=== PATIENT | male | born 1945 | race Caucasian/White ===

== ENCOUNTER 2021-07-26 09:43 | Outpatient (CLI) | payer MEDICARE, OTHER, SELFPAY ==
[2021-07-26 09:57] VITALS: BP 145/95; PULSE 60; RESP 18; TEMP 36.4; O2SAT 99; BMI 27.5
[2021-07-26 10:30] VITALS: BP 123/75; PULSE 57; RESP 16; TEMP 36.4; O2SAT 98
[2021-07-26 11:27] VITALS: BP 124/81; PULSE 55; RESP 18; TEMP 36.4; O2SAT 99
== END 2021-07-26 09:44 | disposition home or self-care (01) ==
LOC: OPS 09:46
PROVIDERS: Visit Provider Family Medicine
DX: U07.1 COVID-19 (principal)
CPT/HCPCS: 96365

== ENCOUNTER 2021-08-29 21:50 | Observation (INO) | payer MEDICARE, OTHER, SELFPAY ==
--- NOTE | 2021-08-29 22:35 | XRR_ITS ---
PROCEDURE INFORMATION: Exam: XR Right Humerus Exam date and time: 08/29/2021 10:35 PM Age: 76 years old Clinical indication: Injury or trauma; Fall; Blunt trauma (contusions or hematomas); Arm, upper; Right; Patient HX: Patient fell tonight. C/O mid humeral pain. Immobilized in soft sling. No manipulation of arm performed. Body rotation and tube angulation used to attempt ap and lat views. ; Additional info: Fall arm pain TECHNIQUE: Imaging protocol: XR Right humerus. Views: 2 or more views. Total images: 4 COMPARISON: No relevant prior studies available. FINDINGS: Bones/joints: Moderately displaced simple comminuted spiral fracture proximal diaphysis right humerus. Medial displacement approximately 18 mm proximally. No visible significant contracture. Probable pathologic fracture through a mid diaphyseal focus of osteolytic destruction that measures approximately 39 mm x 20 mm x 21 mm. Soft tissues: Soft tissue swelling. No visible soft tissue emphysema. XR/[place] [id number] IMPRESSION: Moderately displaced simple comminuted pathologic spiral fracture proximal diaphysis right humerus. Please review discussion in text above.
--- NOTE | 2021-08-29 22:35 | CTR_ITS ---
PROCEDURE INFORMATION: Exam: CT Head Without Contrast Exam date and time: 08/29/2021 10:35 PM Age: 76 years old Clinical indication: Injury or trauma; Blunt trauma (contusions or hematomas); Patient HX: Patient sustained fall last night. On anticoagulants. ; Additional info: Fall, anticoagulated TECHNIQUE: Imaging protocol: Computed tomography of the head without contrast. Total images: 208 Radiation optimization: All CT scans at this facility use at least one of these dose optimization techniques: automated exposure control; mA and/or kV adjustment per patient size (includes targeted exams where dose is matched to clinical indication); or iterative reconstruction. COMPARISON: CT head wo con* [id number] 02/03/2019 8:13 PM RADIATION DOSE METRICS: Total DLP (mGy-cm): 796.9 FINDINGS: Brain: No evidence of active or acute intracranial pathologic process, hemorrhage, or trauma. No cerebral edema. No mass effect. No midline shift. 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 No hyperdense MCA or insular ribbon sign. Atrophic changes greater than that anticipated for patient's chronological age. Cerebral ventricles: No ventriculomegaly. Paranasal sinuses: No visible active paranasal sinus disease. Mastoid air cells: Visualized mastoid air cells are well aerated. Bones/joints: Unremarkable. No acute fracture. Soft tissues: Unremarkable. CT/CT head wo con* [id number] IMPRESSION: No evidence of active or acute intracranial pathologic process, hemorrhage, or trauma.
[2021-08-29 22:43] VITALS: BP 162/89; PULSE 56; RESP 16; TEMP 36.3; O2SAT 100; BMI 27.5
[2021-08-29 23:04] LABS: Basophils % 0.4 %; Eosinophils # 0.2 10^3/uL (0.0-0.8); Eosinophils % 2.1 %; Hematocrit 39.4 % (42.0-52.0); Hemoglobin 13.3 g/dL (11.7-16.6); Lymphocytes # 2.2 10^3/uL (0.8-4.8); Lymphocytes % 19.2 %; Mean Corpuscular HGB Conc 33.8 g/dL (30.0-36.0); Mean Corpuscular Hemoglobin 35.5 pg (28.0-34.0); Mean Corpuscular Volume 105.1 fl (80-94); Mean Platelet Volume 9.8 fL (7.4-10.4); Monocytes # 0.7 10^3/uL (0.2-0.9); Monocytes % 5.8 %; Neutrophils # 8.07 10^3/uL (1.8-7.7); Neutrophils % 72.1 %; Nucleated Red Blood Cells % 0.3 %; Platelet Count 169 10^3/cmm (130-400); Red Blood Count 3.75 10^6/uL (4.1-5.3); Red Cell Distribution Width 15.8 % (12.1-15.1); White Blood Count 11.2 10^3/uL (4.0-10.0)
[2021-08-29 23:30] LABS: Alanine Aminotransferase 32 U/L (0-41); Albumin Level 3.8 g/dL (3.5-5.2); Alkaline Phosphatase 83 IU/L (40-130); Anion Gap 21.4 (5-19); Aspartate Amino Transferase 39 U/L (0-40); Blood Urea Nitrogen 15 mg/dL (8-23); Calcium 9.4 mg/dL (8.5-10.5); Carbon Dioxide 15 mmol/L (22-29); Chloride 107 mmol/L (98-107); Creatine Phosphokinase 78 U/L (39-308); Globulin 2.6 g/dL (1.3-4.6); Glucose 106 mg/dL (65-115); Osmolality Calculated 289 mOsm/kg (285-295); Potassium 4.4 mmol/L (3.5-5.1); Sodium 139 mmol/L (136-145); Total Bilirubin 0.7 mg/dL (0.15-1.2); Total Protein 6.4 g/dL (6.6-8.7)
[2021-08-29 23:55] VITALS: RESP 18
[2021-08-29] MEDS: morphine 4 mg/mL SDV 1 mL IVP (23:55)
[2021-08-29] MEDS: ondansetron 2 mg/ML SDV 2 mL 4 MG IVP (23:55)
[2021-08-29] MEDS: sodium chloride 0.9% 500 ML IV (23:56)
[2021-08-30 00:52] VITALS: BP 163/85; PULSE 63; RESP 17; O2SAT 98
--- NOTE | 2021-08-30 01:14 | XRR_ITS ---
PROCEDURE INFORMATION: Exam: XR Chest Exam date and time: 08/30/2021 1:14 AM Age: 76 years old Clinical indication: Injury or trauma; Blunt trauma (contusions or hematomas); Patient HX: Fall. PT states history of lung cancer. TECHNIQUE: Imaging protocol: XR of the chest. Views: 1 view. COMPARISON: CR (UP EX, ) 08/29/2021 10:48 PM FINDINGS: Lungs: There is a background of emphysema, mild bronchiectasis and pulmonary fibrosis. Pleural spaces: Unremarkable. No pleural effusion. No pneumothorax. Heart/Mediastinum: Unremarkable. No cardiomegaly. Bones/joints: There is a fracture of the right humeral diaphysis. XR/XR chest 1V [id number] IMPRESSION: 1. There are no acute chest findings. 2. Fracture of the right humeral diaphysis.
--- NOTE | 2021-08-30 01:16 | ED_ITS ---
HPI - Fall General: Chief Complaint: Fall Stated Complaint: ARM INJURY Time Seen by Provider: 08/29/21 21:51 History of Present Illness: MD complaint: fall Onset (ago): hour(s) Fall from: standing Fall witnessed: no Place fall occurred: home Loss of consciousness: None Prolonged down time: yes (1 hour) Symptoms prior to fall: none Context: tripped/slipped Location of injury - extremities: Right: arm Quality: stabbing and aching Associated symptoms-after fall: Reports difficulty walking; Denies abdominal pain, chest pain, confusion, headache(s), lightheadedness, neck pain or short of breath Review of Systems Card: Denies: chest pain or lightheadedness GI: Denies: abdominal pain Musc: Denies: neck pain Neuro: Reports: difficulty walking; Denies: headache(s) or confusion Physical Exam Const: GENERAL APPEARANCE: cooperative, in distress and frail appearing ORIENTATION/CONSCIOUSNESS: Yes awake, Yes oriented to person, Yes oriented to place and Yes oriented to time HENMT: COMMON NORMALS: normocephalic and atraumatic HEAD & SCALP: normocephalic and atraumatic Eye: COMMON NORMALS: Equal, round and reactive pupils present and EOMs intact bilaterally PUPIL: Yes Equal, round and reactive pupils present Chest: COMMONS NORMALS: normal inspection of the chest Resp: COMMON NORMALS: normal respiratory effort, No use of accessory muscles and clear to auscultation bilaterally AUSCULTATION: clear to auscultation bilaterally Cardio: COMMON NORMALS: regular rate RATE: regular rate RHYTHM: abnormal rhythm GI: COMMON NORMALS: Normal to inspection, nondistended, normoactive bowel sounds present, Soft to palpation and non-tender PALPATION: Yes Soft to pal pation Extremity: NARRATIVE EXTREMITY EXAM: Exam of the right upper extremity reveals swelling and deformity to the mid right arm. Shoulder on palpation appears in joint. There is no wrist drop. Sensation is intact. Capillary refill is normal. Radial pulses normal. Neuro: SENSORIUM/ORIENTATION: Yes oriented to person, Yes oriented to place and Yes oriented to time Course Consultations: Consultation #1: Carlos Time: 01:20 Consultation #2: Allison Vital Signs: Vital signs: Vital Signs Temperature 97.3 F L 08/29/21 22:43 Pulse Rate 63 08/30/21 00:52 Respiratory Rate 17 08/30/21 00:52 Blood Pressure 163/85 08/30/21 00:52 Pulse Oximetry 98 08/30/21 00:52 MDM - Fall MDM Narrative: Medical decision making narrative: Xray of the right humerus reveals a positionally displaced spiral pathologic fracture of the right mid humerus. His hemoglobin is 13. White blood cell count is mildly elevated at 11.2. Bicarbonate level is 15. Other labs are benign. This gentleman laid in the floor for up to an hour trying to crawl to the phone, as he lives alone, and was weak after his fall. His fracture is a pathologic 1. 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 This gentleman will not do well at home alone in a sling/shoulder immobilizer/pain cast. Spoke with hospitalist team, they agreed to admit. Orthopedics will consult. Lab Data: Labs: Lab Results 08/29/21 08/29/21 22:59 22:59 WBC 11.2 10^3/uL H 10 ^3/uL (4.0-10.0) RBC 3.75 10^6/uL L 10 ^6/uL (4.1-5.3) Hgb 13.3 g/dL g/dL (11.7-16.6) Hct 39.4 % L % (42.0-52.0) MCV 105.1 fl H fl (80-94) MCH 35.5 pg H pg (28.0-34.0) MCHC 33.8 g/dL g/dL (30.0-36.0) RDW 15.8 % H % (12.1-15.1) Plt Count 169 10^3/cmm 10^3 /cmm (130-400) MPV 9.8 fL fL (7.4-10.4) Neut % (Auto) 72.1 % % Lymph % (Auto) 19.2 % % [place] % (Auto) 5.8 % % Eos % (Auto) 2.1 % % Baso % (Auto) 0.4 % % Neut # (Auto) 8.07 10^3/uL H 10 ^3/uL (1.8-7.7) Lymph # (Auto) 2.2 10^3/uL 10^3/ uL (0.8-4.8) [place] # (Auto) 0.7 10^3/uL 10^3/ uL (0.2-0.9) Eos # (Auto) 0.2 10^3/uL 10^3/ uL (0.0-0.8) Baso # (Auto) 0.0 10^3/uL 10^3/ uL (0.0-0.1) Nucleated RBC % (a uto) 0.3 % % Nucleated RBCs # 0.0 /100WBC /100W BC Sodium 139 mmol/L mmol/L (136-145) Potassium 4.4 mmol/L mmol/L (3.5-5.1) Chloride 107 mmol/L mmol/L (98-107) Carbon Dioxide 15 mmol/L L mmol/ L (22-29) Anion Gap 21.4 H (5-19) BUN 15 mg/dL mg/dL (8-23) Creatinine 1.0 mg/dL mg/dL (0.7-1.2) GFR Calculation Not Reportable Glucose 106 mg/dL mg/dL (65-115) Calculated Osmolal ity 289 mOsm/kg mOsm/ kg (285-295) Calcium 9.4 mg/dL mg/dL (8.5-10.5) Total Bilirubin 0.7 mg/dL mg/dL (0.15-1.2) AST 39 U/L U/L (0-40) ALT 32 U/L U/L (0-41) Alkaline Phosphata se 83 IU/L IU/L (40-130) Creatine Kinase 78 U/L U/L (39-308) Total Protein 6.4 g/dL L g/dL (6.6-8.7) Albumin 3.8 g/dL g/dL (3.5-5.2) Globulin 2.6 g/dL g/dL (1.3-4.6) Discharge Plan Discharge Patient Disposition: Admitted As Inpatient Clinical Impression: Fracture, humerus closed Qualifiers: Encounter type: initial encounter Humerus Location: shaft Fracture morphology: spiral Fracture alignment: displaced Laterality: right Qualified Code(s): S42.341A - Displaced spiral fracture of shaft of humerus, right arm, initial encounter for closed fracture Pathologic fracture Qualifiers: Pathology associated with fracture: neoplastic disease Site of pathological fracture: humerus Encounter type: initial encounter Laterality: right Qualified Code(s): M84.521A - Pathological fracture in neoplastic disease, right humerus, initial encounter for fracture Condition: Stable Coding Level of Care Code ED Talent Associate for [facility] Exam Detailed
--- NOTE | 2021-08-30 02:05 | PM.HP ---
Providers/Chief Complaint Admitting Physician: Adolph Gonzalez MD Primary Care Provider: Jenni Mccullough DO Chief Complaint: ARM INJURY History of Present Illness Jing Coffey is a 76 year old male medical history of atrial fibrillation , renal cell carcinoma with mets to chest ,Was brought in by the EMS after the patient experienced a mechanical fall at home as she slipped, post fall patient stayed on the floor for about an hour, trying to crawl to the phone. With great difficulty he was able to call the EMS and then arrived to the hospital. Patient stays alone. Post fall he denies any loss of consciousness, currently denies any chest pain shortness of breath palpitation, headache dizziness ,lightheadedness, nausea vomiting. Upon arrival in the ER he was worked up for above-mentioned complaint. Pertinent imaging studies: CT head without contrast: No acute intracranial pathology X-ray chest: No rib fracture, no other acute pathology X-ray right humerus: Moderately displaced simple comminuted pathologic spiral fracture proximal diaphysis right humerus. Review of Systems Const: Denies: fever(s), chills, body aches, change in appetite or diaphoresis Card: Denies: palpitations, edema, swelling of feet/ankles, dyspnea on exertion, orthopnea or leg pain with exertion Resp: Denies: dyspnea, productive cough, wheezing or pain on inspiration GI: Denies: abdominal pain, nausea, vomiting, diarrhea or constipation : Denies: flank pain or difficulty urinating Musc: Denies: back pain, extremity pain or extremity swelling Neuro: Denies: headache(s), difficulty walking or confusion Medications/Allergies Home Medications Medication Instructions Recorded Confirmed Last Taken Type Cabometyx 40 mg PO DAILY 08/30/21 08/30/21 08/29/21 History Clindamycin 300 mg PO QID 08/30/21 08/30/21 08/29/21 History Eliquis 5 mg PO BID 08/30/21 08/30/21 08/29/21 History Vitamin D3 25 mcg PO DAILY 08/30/21 08/30/21 08/29/21 History amlodipine 5 mg PO DAILY 08/30/21 08/30/21 08/29/21 History atorvastatin 40 mg PO DAILY 08/30/21 08/30/21 08/29/21 History levothyroxine 0.05 mg PO DAILY 08/30/21 08/30/21 08/29/21 History loperamide 2 mg PO PRN 08/30/21 08/30/21 08/30/21 History losartan 100 mg PO DAILY 08/30/21 08/30/21 08/29/21 History metoprolol tartrate 100 mg PO BID 08/30/21 08/30/21 08/30/21 History mirtazapine 15 mg PO BEDTIME 08/30/21 08/30/21 08/30/21 History prednisone 5 mg PO DAILY 08/30/21 08/30/21 08/29/21 History tacrolimus 2 mg PO DAILY 08/30/21 08/30/21 08/29/21 History tamsulosin 0.4 mg PO DAILY 08/30/21 08/30/21 08/29/21 History Allergies Allergy/AdvReac Type Severity Reaction Status Date / Time No Known Allergies Allergy Verified 07/26/21 09:58 Vitals/I&O/Wt Last Vital Signs Temp 97.3 F L 08/29/21 22:43 Pulse 63 08/30/21 00:52 Resp 17 08/30/21 00:52 BP 163/85 08/30/21 00:52 Pulse Ox 98 08/30/21 00:52 Weight last 48 hrs Weight 99.79 kg Physical Exam Const: COMMON NORMALS: patient oriented x3 HENMT: COMMON NORMALS: normocephalic and atraumatic HEAD & SCALP: normocephalic and atraumatic Resp: COMMON NORMALS: clear to auscultation bilaterally EFFORT & INSPECTION: Yes symmetric chest movement AUSCULTATION: clear to auscultation bilaterally Cardio: COMMON NORMALS: regular rate, regular rhythm, S1 normal heart sound present, S2 normal heart sound present, No gallops present (Cardio), No murmurs present (Cardio), No rub (Cardio) and Peripheral pulses 2+ throughout RATE: regular rate RHYTHM: regular rhythm HEART SOUNDS: S1 normal heart sound present and S2 normal heart sound present PERIPHERAL PULSES: Peripheral pulses 2+ throughout GI: COMMON NORMALS: Normal to inspection, nondistended, normoactive bowel sounds present, Soft to palpation, non-tender, No hepatosplenomegaly present and no masses AUSCULTATION: Yes normoactive bowel sounds PALPATION: Yes Soft to palpation and Yes No hepatosplenomegaly present RECTAL EXAM: Yes deferred Extremity: COMMON NORMALS: no clubbing, cyanosis or edema and no pedal edema Neuro: COMMON NORMALS: patient oriented x3 Data : 08/29/21 22:59 08/29/21 22:59 A&P Assessment and plan (1) Fracture, humerus closed: Status: Acute Qualifiers: Encounter type: initial encounter Fracture alignment: displaced Fracture morphology: spiral Humerus Location: shaft Laterality: right Qualified Code(s): S42.341A - Displaced spiral fracture of shaft of humerus, right arm, initial encounter for closed fracture (2) Atrial fibrillation: Status: Acute (3) Renal cell carcinoma: Status: Acute Additional A&P Information Jing Coffey is a 76 year old male medical history of atrial fibrillation , renal cell carcinoma with mets to chest ,Was brought in by the EMS after the patient experienced a mechanical fall at home as she slipped. #Fracture right humerus: Pain control Likely sling/shoulder immobilizer Orthopedic surgery consult in a.m. #History of atrial fibrillation: Currently heart rate well controlled Continue anticoagulation #CODE STATUS: Full code #DVT prophylaxis: Not needed on Attestations Medical Necessity Statement*: Patient is to be in hospital for management of right humerus fracture. Pain control. Time Spent in Patient Care: Greater than 35 minutes (>than 50% of time spent in counselling and/or direct pt care on unit). Coding Level of Care Code Acute Skidder Operator for [facility] Fwd Exam Detailed Diagnoses Fracture, humerus closed S42.341A Encounter type: initial encounter Fracture alignment: displaced Fracture morphology: spiral Humerus Location: shaft Laterality: right Atrial fibrillation I48.91 Renal cell carcinoma C64.9
[2021-08-30] MEDS: dextrose 5%-sod chloride 0.9% 1,000 ML 50 ML IV ×2 (02:54→23:50)
[2021-08-30 03:03] VITALS: BP 143/90; PULSE 66; RESP 18; O2SAT 98
[2021-08-30 06:39] VITALS: BP 149/83; PULSE 61; O2SAT 99
--- NOTE | 2021-08-30 09:05 | PM.PN ---
Subjective Subjective: Interval history: History and physical. Patient reports he tripped. Denies any injuries other than his right upper extremity. Lives alone, and will have difficulty managing as he is right-handed. Normally walks with a cane Medications: Reviewed: Yes Vitals/I&O/Wt Last Vital Signs Temp 97.3 F L 08/29/21 22:43 Pulse 61 08/30/21 06:39 Resp 18 08/30/21 03:03 BP 149/83 08/30/21 06:39 Pulse Ox 99 08/30/21 06:39 Weight last 48 hrs Weight 99.79 kg Physical Exam Narrative: EXAM NARRATIVE: General exam no distress Neck is supple Cardiovascular regular rate and rhythm Lungs clear Abdomen is soft Extremities no cyanosis clubbing or edema, right arm in sling Data : 08/29/21 22:59 08/29/21 22:59 A&P Assessment and plan (1) Fracture, humerus closed: Orthopedic consultation pending Physical therapy consultation This is going to significantly impede his ability to care for himself. We will see how he does with physical therapy, discharge planning consultation to see what options are available. Hold Phill currently in case any surgical intervention would be done during this hospital stay. Status: Acute Qualifiers: Encounter type: initial encounter Fracture alignment: displaced Fracture morphology: spiral Humerus Location: shaft Laterality: right Qualified Code(s): S42.341A - Displaced spiral fracture of shaft of humerus, right arm, initial encounter for closed fracture (2) Atrial fibrillation: Rate controlled. Continue chronic medications Status: Acute (3) Renal cell carcinoma: Status: Acute Additional A&P Information Full code SCDs for DVT prophylaxis Attestations Medical Necessity Statement*: Will need less than 2 midnight stay for evaluation and treatment of humerus fracture Coding Level of Care Code Acute Certified Pedorthotist for [facility] Fw Diagnoses Fracture, humerus closed S42.341A Encounter type: initial encounter Fracture alignment: displaced Fracture morphology: spiral Humerus Location: shaft Laterality: right Atrial fibrillation I48.91 Renal cell carcinoma C64.9
[2021-08-30] MEDS: morphine 4 mg/mL SDV 1 mL 2 MG IVP ×2 (10:27→20:05)
[2021-08-30] MEDS: atorvastatin 40 mg Tablet PO (10:27)
[2021-08-30] MEDS: metoprolol tartrate 25 mg Tablet PO ×2 (10:27→20:05)
[2021-08-30] MEDS: amlodipine 5 mg Tablet PO (10:28)
--- NOTE | 2021-08-30 10:59 | PC.NURSE ---
Shift note Pt has severe pain on palpation and movement to right upper arm. Pt shoulder in sling. Pt denies any other complaints at this time.
--- NOTE | 2021-08-30 13:47 | PC.NURSE ---
Pt placed in shoulder immobilizer per Dr. Blackwood.
[2021-08-30 15:24] VITALS: RESP 17
[2021-08-30 15:41] VITALS: BMI 27.5
--- NOTE | 2021-08-30 16:08 | PM.CONSULT ---
Providers/Reason For Consult Consulting Physician/Specialty*: Zari Cooper MD Reason for Consult*: Right spiral humeral shaft fracture Requesting Physician: Mike Blackwood DO Attending Physician: Peter Betancourt MD Primary Care Provider: Jenni Mccullough DO History of Present Illness History of Present Illness Jing Coffey is a 76 year old male who presented to the emergency department after an unwitnessed fall at home. Reportedly, the patient lives alone at home. He states he slipped and fell to the floor. It took approximately 1 hour for him to crawl to the phone at which time he called EMS. The patient was brought to the emergency department and was evaluated there. He denied any loss of consciousness or other reason for his fall other than the slip. Past medical history is significant for metastatic renal cell carcinoma, and the fracture does appear to be pathologic. Review of Systems Const: Denies: fever(s), chills, body aches, change in appetite or diaphoresis Card: Denies: chest pain, palpitations, edema, swelling of feet/ankles, lightheadedness, dyspnea on exertion, orthopnea or leg pain with exertion Resp: Denies: dyspnea, productive cough, wheezing or pain on inspiration GI: Denies: abdominal pain, nausea, vomiting, diarrhea or constipation : Denies: flank pain or difficulty urinating Musc: Denies: neck pain, back pain, extremity pain or extremity swelling Neuro: Denies: headache(s), difficulty walking or confusion Medications/Allergies Home Medications Medication Instructions Recorded Confirmed Last Taken Type amlodipine 5 mg PO DAILY 08/30/21 08/30/21 08/29/21 History apixaban [Eliquis] 5 mg PO BID 08/30/21 08/30/21 08/29/21 History atorvastatin 40 mg PO DAILY 08/30/21 08/30/21 08/29/21 History cabozantinib [Cabometyx] 40 mg PO DAILY 08/30/21 08/30/21 08/29/21 History cholecalciferol (vitamin D3) 25 mcg PO DAILY 08/30/21 08/30/21 08/29/21 History [Vitamin D3] clindamycin HCl 300 mg PO QID 08/30/21 08/30/21 08/29/21 History levothyroxine 50 mcg PO DAILY 08/30/21 08/30/21 08/29/21 History loperamide 2 mg PO Q4H PRN 08/30/21 08/30/21 08/30/21 History losartan 100 mg PO DAILY 08/30/21 08/30/21 08/29/21 History metoprolol tartrate 100 mg PO BID 08/30/21 08/30/21 08/30/21 History mirtazapine 15 mg PO DAILY 08/30/21 08/30/21 08/30/21 History prednisone 5 mg PO DAILY 08/30/21 08/30/21 08/29/21 History tacrolimus 2 mg PO Q12H 08/30/21 08/30/21 08/29/21 History tamsulosin 0.4 mg PO DAILY 08/30/21 08/30/21 08/29/21 History Allergies Allergy/AdvReac Type Severity Reaction Status Date / Time No Known Allergies Allergy Verified 07/26/21 09:58 Current Medications Generic Name Dose Route Start Last Admin Trade Name Freq PRN Reason Stop Dose Admin Amlodipine Besylate 5 mg 08/30/21 09:00 08/30/21 10:28 Amlodipine 5 Mg Tablet PO 5 mg DAILY MAURI Administration Atorvastatin Calcium 40 mg 08/30/21 09:00 08/30/21 10:27 Atorvastatin 40 Mg Tablet PO 40 mg DAILY MAURI Administration Dextrose/Sodium Chloride 1,000 mls @ 50 mls/hr 08/30/21 02:00 08/30/21 02:54 Dextrose 5%-Sod Chloride 0.9% IV 50 mls/hr .Q20H MAURI Administration Metoprolol Tartrate 25 mg 08/30/21 09:00 08/30/21 10:27 Metoprolol Tartrate 25 Mg Tablet PO 25 mg BID@0900,2100 MAURI Administration Morphine Sulfate 2 mg 08/30/21 02:00 08/30/21 10:27 Morphine 4 Mg/Ml Sdv 1 Ml IVP 2 mg Q4H PRN Administration SEVERE PAIN PFSH Acute PFSH: Medical History Atrial fibrillation Renal cell carcinoma Vitals/I&O/Wt Last Vital Signs Temp 97.3 F L 08/29/21 22:43 Pulse 61 08/30/21 06:39 Resp 17 08/30/21 15:24 BP 149/83 08/30/21 06:39 Pulse Ox 99 08/30/21 06:39 Weight last 48 hrs Weight 220 lb Physical Exam Const: COMMON NORMALS: no acute distress, average body habitus, patient oriented x3 and alert GENERAL APPEARANCE: cooperative and comfortable ORIENTATION/CONSCIOUSNESS: Yes awake HENMT: COMMON NORMALS: normocephalic and atraumatic HEAD & SCALP: normocephalic and atraumatic Eye: GENERAL EYE: appearance normal, both eyes and all related structures Chest: COMMONS NORMALS: normal inspection of the chest Resp: COMMON NORMALS: normal respiratory effort EFFORT & INSPECTION: Yes able to speak in complete sentences and Yes symmetric chest movement Extremity: RIGHT UPPER EXTREMITY: Yes upper arm (Clamshell is in place, and patient notes it is comfortable) Right upper arm: Yes inspection (No significant swelling distally) and Yes neurovascular exam (Excellent wrist and finger extension) Neuro: COMMON NORMALS: patient oriented x3 SENSORIUM/ORIENTATION: Yes alert Psych: COMMON NORMALS: mental status grossly normal APPEARANCE: Yes grossly normal ATTITUDE: Yes calm and Yes engaged ATTENTION/CONCENTRATION: Yes attention grossly intact Skin: COMMON NORMALS: no rashes or lesions noted GENERAL SKIN EXAM: no rashes or lesions noted Data Imaging^: Xray Ortho: I personally reviewed and interpreted this imaging study as follows: My impression: Right humerus imaging demonstrates there is a lesion evident on the lateral aspect of the humerus consistent with the diagnosis of pathologic fracture. A&P Assessment and plan (1) Fracture of humeral shaft, right, closed: This 76-year-old gentleman with known renal cell carcinoma metastatic to the chest presented with a spiral humeral fracture after a fall. Review of the x-rays indicates this does appear to be a pathologic fracture. The patient denied any other reason for his fall other than slipping. Patient denied any loss of consciousness, but he was down on the floor attempting to get to the phone for approximately 1 hour. Diagnosis was made in the emergency department. The patient is seen on the floor. Plans are made for him to be placed in a clamshell style humeral splint. The patient was fitted with a clamshell by the time of evaluation. Physical therapy is in the room, and the patient does have discomfort to range of motion. He is neurologically intact, and he is encouraged to use his elbow and wrist. He was to have seen his oncologist in [place] next week, but currently, he is planning on going to his daughters in [place], [place], and he states he may have to delay this visit. As all of his treating physicians are in [place], he may obtain care in [place] for this fracture or I am happy to see him in approximately 2 weeks for reevaluation. Status: Acute Qualifiers: Encounter type: initial encounter Fracture alignment: displaced Fracture morphology: spiral Qualified Code(s): S42.341A - Displaced spiral fracture of shaft of humerus, right arm, initial encounter for closed fracture (2) Renal cell carcinoma: Status: Acute Qualifiers: Laterality: unspecified laterality Qualified Code(s): C64.9 - Malignant neoplasm of unspecified kidney, except renal pelvis (3) Pathologic fracture: Status: Acute Qualifiers: Encounter type: initial encounter Laterality: right Pathology associated with fracture: neoplastic disease Site of pathological fracture: humerus Qualified Code(s): M84.521A - Pathological fracture in neoplastic disease, right humerus, initial encounter for fracture Consult Attestations Medical Necessity Statement: Patient requires hospitalization for instruction in range of motion and balance improvement. Coding Level of Care Code Acute Reaming Machine Operator For Plastic for g Fwd Diagnoses Fracture of humeral shaft, right, closed S42.341A Encounter type: initial encounter Fracture alignment: displaced Fracture morphology: spiral Renal cell carcinoma C64.9 Laterality: unspecified laterality Pathologic fracture M84.521A Encounter type: initial encounter Laterality: right Pathology associated with fracture: neoplastic disease Site of pathological fracture: humerus
[2021-08-30 16:57] VITALS: BP 146/60; PULSE 61; RESP 18; TEMP 36.9; O2SAT 96
--- NOTE | 2021-08-30 17:08 | XRR_ITS ---
PROCEDURE INFORMATION: Exam: XR Right Humerus Exam date and time: 08/30/2021 5:08 PM Age: 76 years old Clinical indication: Condition or disease; Patient HX: R humerus FX f/u post brace placement; Additional info: Follow-up after brace placement TECHNIQUE: Imaging protocol: XR Right humerus. Views: 2 or more views. COMPARISON: CR (UP EXM, ) 08/29/2021 10:48 PM FINDINGS: Tubes, catheters and devices: External brace is in place on the arm. Bones/joints: There is oblique fracture, possibly pathologic fracture in the midshaft of the right humerus again identified. Fracture fragments are grossly in anatomic alignment. Osteolytic focus in the midshaft of the humerus at the level of the fracture again identified Soft tissues: Normal. XR/[place] [address] IMPRESSION: Improved position and alignment following brace placement.
[2021-08-30] MEDS: apixaban 5 mg Tablet PO (17:58)
[2021-08-30 19:18] VITALS: BP 179/116; PULSE 68; RESP 18; TEMP 36.8; O2SAT 96
[2021-08-30] MEDS: mirtazapine 15 mg Tablet PO (20:05)
[2021-08-31] VITALS (7 sets, daily range): BP systolic 121–168; BP diastolic 60–98; PULSE 60–73; RESP 16–20; TEMP 36.7–37.6; O2SAT 93–96
--- NOTE | 2021-08-31 02:56 | PC.NURSE ---
Assumed pt care: Report given from RN and this nurse assumed patient care at this time. Assisted the pt from a chair to bed and he was very weak. Required assistX1. Expressed concern for the patient going home by himself, he stated that his son can help him. Was incontinent and assisted him into clean pants. Immobilizer still in place to right shoulder. Call light is within reach and bed alarm set.
[2021-08-31 08:34] LABS: Basophils % 0.3 %; Eosinophils # 0.1 10^3/uL (0.0-0.8); Eosinophils % 2.4 %; Hematocrit 31.2 % (42.0-52.0); Hemoglobin 10.3 g/dL (11.7-16.6); Lymphocytes # 1.9 10^3/uL (0.8-4.8); Lymphocytes % 33.9 %; Mean Corpuscular Hemoglobin 35.3 pg (28.0-34.0); Mean Corpuscular Volume 106.8 fl (80-94); Mean Platelet Volume 11.2 fL (7.4-10.4); Monocytes # 0.5 10^3/uL (0.2-0.9); Monocytes % 9.3 %; Neutrophils # 3.06 10^3/uL (1.8-7.7); Neutrophils % 53.6 %; Nucleated Red Blood Cells % 0 %; Platelet Count 104 10^3/cmm (130-400); Red Blood Count 2.92 10^6/uL (4.1-5.3); Red Cell Distribution Width 15.9 % (12.1-15.1); White Blood Count 5.7 10^3/uL (4.0-10.0)
[2021-08-31] MEDS: morphine 4 mg/mL SDV 1 mL 2 MG IVP (08:38)
[2021-08-31] MEDS: atorvastatin 40 mg Tablet PO (08:38)
[2021-08-31] MEDS: metoprolol tartrate 25 mg Tablet PO (08:38)
[2021-08-31] MEDS: amlodipine 5 mg Tablet PO (08:38)
[2021-08-31] MEDS: apixaban 5 mg Tablet PO (08:38)
[2021-08-31 09:01] LABS: Anion Gap 16.1 (5-19); Blood Urea Nitrogen 14 mg/dL (8-23); Calcium 8.6 mg/dL (8.5-10.5); Carbon Dioxide 17 mmol/L (22-29); Chloride 109 mmol/L (98-107); Creatinine Clr Calc Pharmacy 72.0809; Glucose 121 mg/dL (65-115); Osmolality Calculated 288 mOsm/kg (285-295); Potassium 4.1 mmol/L (3.5-5.1); Sodium 138 mmol/L (136-145)
--- NOTE | 2021-08-31 09:39 | PC.CHAP ---
Pastoral Care Encounter/Spiritual Assessment Type of Contact [] Declined senior merchandiser visit [] Patient/Family/Request visit [] Outpatient visit [] Follow-up visit [] Physician referral [] Code/Alert [xx] Routine visit [] Staff referral [] Actively dying [] Patient sleeping [] Family support [] [] Out of room [] Palliative care [] [] Receiving care in room [] Pre-surgical visit [] Trauma [] Long length of stay [] ICU visit [] Other: Relational/Emotional Strength [x] Patient feels connected with others/family/visitors/staff [] Distress [] Loneliness/isolation [] Abandonment Spirituality of Patient [x] Person of Josy [] Attends Voodoo of their Josy [x] Believes in Prayer [] Reads Bible or Samaritan materials [] There are Spiritual issues to be addressed Political Analyst Interventions [x] Prayer [x] Active listening [x] Non-anxious presence [x] Spiritual/emotional support [] Crisis/trauma care [] Spiritual counseling [] Bereavement support [] Provided bereavement packet [] Provided Bible/devotional materials [] Provided toy/stuffed animal, coloring book to patient or family member [] Provided Communion [] Anointing/[place] [] Salvation [x] Completed spiritual assessment [] Other: Impact on Illness or Injury [] Angry [] Fearful [] Anxious [] Often cries [] Exhaustion [] Unable to work [] Unable to attend buddhism [] Unable to walk/stand [] Unable to read [] Unable to drive [] Unable to eat/drink [] Unable to sleep [] Unable to be with family [] Patient intubated [] Other: Summary Political Analyst prayed with patient. Time spent with patient 7 minutes.
--- NOTE | 2021-08-31 09:59 | PM.DCS ---
Discharge Providers Date of Admission: 08/30/21 01:28 Date of Discharge: August 31, 2021 Attending Provider at Admission: Adolph Gonzalez MD Attending Provider at Discharge: Peter Betancourt MD Primary Care Provider: Jenni Mccullough DO Diagnoses at Discharge Discharge Diagnosis (1) Fracture of humeral shaft, right, closed: Status: Acute Qualifiers: Encounter type: initial encounter Fracture alignment: displaced Fracture morphology: spiral Qualified Code(s): S42.341A - Displaced spiral fracture of shaft of humerus, right arm, initial encounter for closed fracture (2) Renal cell carcinoma: Status: Acute Qualifiers: Laterality: unspecified laterality Qualified Code(s): C64.9 - Malignant neoplasm of unspecified kidney, except renal pelvis (3) Pathologic fracture: Status: Acute Qualifiers: Encounter type: initial encounter Laterality: right Pathology associated with fracture: neoplastic disease Site of pathological fracture: humerus Qualified Code(s): M84.521A - Pathological fracture in neoplastic disease, right humerus, initial encounter for fracture Reason for Visit Reason for Visit: ARM INJURY Hospital Course Hospital Course Jing is a 76-year-old white male with history of atrial fibrillation and renal cell carcinoma who presented with a mechanical fall, and fracture occurred to his right humerus. He was placed in observation, orthopedic surgery consultation was obtained secondary to high likelihood of this being a pathological fracture. After their evaluation it was apparent this would not likely be a surgical intervention, and that he should follow-up in orthopedics in 2 weeks for reevaluation. He will therefore go home, with family for safety, and follow-up with orthopedics in 2 weeks and his primary care provider in 3 to 5 days. He will also need to follow-up with his oncologist regarding possibility that this is a pathologic fracture. From my understanding from the patient he will follow-up in [place] for this. Physical Exam Narrative: EXAM NARRATIVE: General exam no distress Neck is supple Cardiovascular regular rate and rhythm Lungs clear Abdomen is soft Extremities no cyanosis clubbing or edema lower extremities. Right arm in splint Discharge Data Data Completed and Pending: Completed Studies During Hospitalization Category Date Time Status CT head wo con* 7 0450 Urgent Cat Scan 08/29/21 22:35 Completed XR chest 1V 42059 Stat Exams 08/30/21 01:14 Completed XR humerus RT 730 60 Routine Exams 08/30/21 17:08 Completed XR humerus RT 730 60 Stat Exams 08/29/21 22:35 Completed Pending at discharge Category Date Time Status Basic Metabolic P anant AM LABS Lab 09/01/21 04:00 Ordered Basic Metabolic P anant AM LABS Lab 09/02/21 04:00 Ordered Complete Blood Co unt w/Auto AM LABS Lab 09/01/21 04:00 Ordered Complete Blood Co unt w/Auto AM LABS Lab 09/02/21 04:00 Ordered Labs from last 24 hours 08/31/21 08/31/21 08:12 08:12 WBC 5.7 RBC 2.92 L Hgb 10.3 L Hct 31.2 L MCV 106.8 H MCH 35.3 H MCHC 33.0 RDW 15.9 H Plt Count 104 L MPV 11.2 H Neut % (Auto) 53.6 Lymph % (Auto) 33.9 Garrard % (Auto) 9.3 Eos % (Auto) 2.4 Baso % (Auto) 0.3 Neut # (Auto) 3.06 Lymph # (Auto) 1.9 Garrard # (Auto) 0.5 Eos # (Auto) 0.1 Baso # (Auto) 0.0 Nucleated RBC % (a uto) 0 Nucleated RBCs # 0.0 Sodium 138 Potassium 4.1 Chloride 109 H Carbon Dioxide 17 L Anion Gap 16.1 BUN 14 Creatinine 1.1 GFR Calculation Not Reportable Glucose 121 H Calculated Osmolal ity 288 Calcium 8.6 Vitals: Last Vital Signs Temp 99.6 F 08/31/21 07:31 Pulse 73 08/31/21 07:31 Resp 20 H 08/31/21 08:38 BP 157/83 08/31/21 07:31 Pulse Ox 95 08/31/21 07:31 Discharge Plan Discharge Patient Disposition: Home Condition: Stable Prescriptions: New hydrocodone-acetaminophen 5-325 mg tablet 1 tab PO Q6H PRN (Reason: pain) Qty: 14 RF: 0 Continued loperamide 2 mg Capsule 2 mg PO Q4H PRN (Reason: Diarrhea) RF: 0 metoprolol tartrate 100 mg Tablet 100 mg PO BID RF: 0 amlodipine 5 mg Tablet 5 mg PO DAILY RF: 0 tamsulosin 0.4 mg Capsule 0.4 mg PO DAILY RF: 0 mirtazapine 15 mg Tablet 15 mg PO DAILY RF: 0 cholecalciferol (vitamin D3) [Vitamin D3] 25 mcg (1,000 unit) Capsule 25 mcg PO DAILY RF: 0 atorvastatin 40 mg Tablet 40 mg PO DAILY RF: 0 clindamycin HCl 300 mg Capsule 300 mg PO QID RF: 0 prednisone 5 mg Tablet 5 mg PO DAILY RF: 0 levothyroxine 50 mcg Tablet 50 mcg PO DAILY RF: 0 losartan 100 mg Tablet 100 mg PO DAILY RF: 0 tacrolimus 1 mg Capsule 2 mg PO Q12H RF: 0 Eliquis 5 mg Tablet 5 mg PO BID RF: 0 Cabometyx 40 mg Tablet 40 mg PO DAILY RF: 0 Discharge Orders: Discharge Order (Routine); Ordered 08/31/21 Ordered By: Peter Betancourt Referrals: Zari Cooper MD [Physician] - 2 weeks Jenni Mccullough DO [Primary Care Provider] - 4-7 days Discharge Diet: Usual diet Discharge Activity: Limit activity as instructed and As per PT/OT instructions Patient Instructions: Opioid Safety Activity Restrictions/Additional Instructions: Maintain clam shell brace with routine skin checks as instructed. May wear shoulder immobilizer to help support the brace in a comfortable position. Range of motion to wrist and elbow as instructed. You may use your hand without lifting heavy objects. Follow-up with oncologist regarding your fracture, as this is a concern regarding your renal cell carcinoma, in the next several weeks. Discharge Attestations Time Spent in Discharge Care*: greater than 30 min Quality Metrics Clinical Quality Measures During this hospital stay, did patient experience: None Coding Level of Care Code Acute g [facility] note Diagnoses Fracture of humeral shaft, right, closed S42.341A Encounter type: initial encounter Fracture alignment: displaced Fracture morphology: spiral Renal cell carcinoma C64.9 Laterality: unspecified laterality Pathologic fracture M84.521A Encounter type: initial encounter Laterality: right Pathology associated with fracture: neoplastic disease Site of pathological fracture: humerus
== END 2021-08-31 16:43 | disposition home or self-care (01) ==
LOC: ER 08-30 01:23 → ER IP 08-30 02:16 → MEDSURG 08-30 13:35
PROVIDERS: Admitting Provider Internal Medicine; Emergency Provider Emergency Medicine; PCP Family Medicine; Visit Provider Internal Medicine
DX: S42.341A Displaced spiral fracture of shaft of humerus, right arm, initial encounter for closed fracture (principal); W19.XXXA Unspecified fall, initial encounter; C64.9 Malignant neoplasm of unspecified kidney, except renal pelvis; M84.521A Pathological fracture in neoplastic disease, right humerus, initial encounter for fracture; I48.91 Unspecified atrial fibrillation
CPT/HCPCS: 36415; 70450; 71045; 73060; 80048; 80053; 82550; 85025; 96361; 96374; 96375; 97110; 97162; 97760; 99285; G0378; J2270; J2405; J7040; L3980

== ENCOUNTER 2021-12-04 11:01 | Inpatient (IN) | payer MEDICARE, OTHER, SELFPAY ==
[2021-12-04] VITALS (9 sets, daily range): BP systolic 110–154; BP diastolic 53–96; PULSE 73–109; RESP 12–24; TEMP 37.1–39.2; O2SAT 92–99; BMI 25.0; BMI 26.6
--- NOTE | 2021-12-04 11:06 | XRR_ITS ---
PROCEDURE INFORMATION: Exam: XR Chest Exam date and time: 12/04/2021 11:11 AM Age: 76 years old Clinical indication: Other: See below; Patient HX: Failure to thrive, PT unable to give history; Additional info: Eval for pna TECHNIQUE: Imaging protocol: XR of the chest. Views: 1 view. COMPARISON: CR (CHEST, ) 08/30/2021 1:19 AM FINDINGS: Lungs: Unremarkable. No consolidation. Pleural spaces: Unremarkable. No pleural effusion. No pneumothorax. Heart/Mediastinum: Unremarkable. No cardiomegaly. Bones/joints: Unremarkable. Comparison to prior examination similar findings is seen XR/XR chest 1V portable 11030 IMPRESSION: No acute findings.
--- NOTE | 2021-12-04 11:17 | ECG_ITS ---
[facility] Test Date: 2021-12-04 Pat Name: Jing Coffey Department: Room: Gender: Male Client Support Analyst: : 1945 Requested By: Saeid Skaggs Order Number: [id number] Reading MD: Raj Cai M.D. Measurements Intervals Wallace Rate: 104 P: MS: QRS: 47 QRSD: 85 T: 30 QT: 274 QTc: 361 Interpretive Statements ATRIAL FIBRILLATION WITH RAPID VENTRICULAR RESPONSE WITH ABERRANT CONDUCTION OR VENTRICULAR PREMATURE COMPLEXES LOW QRS VOLTAGE IN EXTREMITY LEADS [QRS DEFLECTION < 0.5 mV IN LIMB LEADS] NONSPECIFIC ST & T-WAVE ABNORMALITY ABNORMAL RHYTHM ECG No previous ECG available for comparison Electronically Signed On 12-04-2021 16:50:49 CDT by Raj Cai M.D. [id number]
--- NOTE | 2021-12-04 11:17 | CT_ITS ---
WS: [id number] CT HEAD NONCONTRAST HISTORY: ams TECHNIQUE: Contiguous axial imaging performed through the brain in 2.5 mm imaging. Bone and soft tiss ue windows. Sagittal and coronal reformats reviewed. All CT scans at [facility] use at least one of these dose optimization techniques: automated exposure control; mA and/or kV adjustment per pa tient size (includes targeted exams where dose is matched to clinical indication); or iterative recon struction. DLP: 475.93 mGy.cm COMPARISON: 08/30/2021 No acute intracranial hemorrhage, midline shift or mass effect. Moderate atrophy and extensive chronic white matter ischemic disease. No focal area of effacement. Ventricles: Ventricles are mildly prominent on the basis of atrophy. No inferior displacement of cerebellar tonsils. Paranasal sinuses: As visualized are clear. Mastoid air cells: Well pneumatized. Calvarium and scalp: Skull is intact with no soft tissue edema or swelling. Heavy calcification in the intracranial carotid arteries. CT/CT head wo con* [id number] IMPRESSION: 1. No acute intracranial hemorrhage or edema. 2. Atrophy with advanced small vessel ischemic disease. Very similar appearanc e as compared to 08/30/2021
--- NOTE | 2021-12-04 11:31 | ED_ITS ---
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 intake. Patient tells me that since his discharge from [facility] 3 days ago, patient has had difficulty getting around his house. Patient walks with a walker at baseline however says that he felt too weak today to walk. For the last 3 days, patient was on the ground unable to take care of himself. Patient denies any recent p.o. intake in the last 3 days since discharge from hospital. Patient had 1 episode of vomiting earlier today. EMS was called and patient was brought to the emergency room for further evaluation. On arrival, patient was noted to be covered in urine and feces. Patient is otherwise AAO x3 able to answer all my questions. Patient denies any focal pain, chest pain, shortness of breath, palpitation vomiting, diarrhea, melena/hematochezia. He denies any pain anywh ere. Patient tells me that he would like to get help and go back to [facility]. Onset:3 days ago Duration:3 days Location:home Severity:severe Associated symptoms: Reports vomiting (x1); Deny chest pain, dyspnea, nausea, rash or palpitations Review of Systems Const: Denies: fever(s) or chills Eyes: Denies: change in vision ENMT: Denies: mouth pain Card: Denies: chest pain or palpitations Resp: Denies: dyspnea or non-productive cough GI: Reports: vomiting (x1); Denies: abdominal pain, nausea or diarrhea : Denies: dysuria Musc: Denies: extremity pain Skin/Breast: Denies: rash or new lesions Neuro: Denies: weakness in extremities Psych: Reports: other (Normal mood) José Miguel/Lymph: Denies: easy bruising [facility] ED PFSH: Medical History Atrial fibrillation CKD (chronic kidney disease) Depression Displaced spiral fracture of shaft of humerus HLD (hyperlipidemia) HTN (hypertension) Hypothyroidism Renal cell carcinoma Surgical History Hx of kidney transplant Social History Smoking and tobacco status: never smoked Alcohol intake: never Substance/Drug Use: never Marital status: Physical Exam Const: COMMON NORMALS: alert HENMT: COMMON NORMALS: atraumatic HEAD & SCALP: atraumatic MOUTH: moist mucous membranes abnormal Eye: COMMON NORMALS: EOMs intact bilaterally and conjunctivae normal CONJUNCTIVA: Yes conjunctivae normal Neck/C-Spine: COMMON NORMALS: full ROM and supple Resp: COMMON NORMALS: normal respiratory effort and clear to auscultation bilaterally AUSCULTATION: clear to auscultation bilaterally Cardio: RATE: tachycardic GI: COMMON NORMALS: Soft to palpation and non-tender PALPATION: Yes Soft to palpation Extremity: COMMON NORMALS: full ROM Neuro: SENSORIUM/ORIENTATION: Yes alert MOTOR EXAM: No Abnormal motor strength present and Other motor observations present (no focal motor deficits) OTHER: Moving all extremities, cranial nerves II through XII grossly intact, AAO x3, no speech/language diffculties Psych: COMMON NORMALS: speech normal SPEECH: Yes normal speech MOOD & AFFECT: Yes euthymic mood Course Vital Signs: Vital signs: Vital Signs Temperature 102.5 F H 12/04/21 20:58 Pulse Rate 80 12/04/21 20:58 Respiratory Rate 12 12/04/21 20:58 Blood Pressure 114/53 12/04/21 20:58 Pulse Oximetry 97 12/04/21 20:58 MDM - General Adult Medical Decision Making Patient is a 76-year-old male with a history of renal cell carcinoma with mets to the lungs, atrial fibrillation on Eliquis, recent pathologic right humerus fracture previously had [facility] presenting to the emergency room for concerns of generalized weakness, inability to care for self and decreased p.o. intake. On physical exam, patient appears to be dry and tachycardic. Patient was covered in feces and urine earlier had to be cleaned. Patient did have a white count 11.8. Hemoglobin 8.7 with baseline of 11. Creatinine 1.4. UA is consistent with possible UTI with positive nitrate leukocyte esterase and bacteria. Patient received ceftriaxone. Patient received 1 L fluid. Patient has an CASPER of 1.4 with baseline 1.1. Troponin is noted to be 55. EKG does not appear to be ischemic. We will trend troponin at this time. Patient is not able to get out of bed at this time. CT head negative for any acute finding. X-ray chest negative for pneumonia. The fact the patient is unable to take care of himself, patient would be a candidate for [facility]. Disposition: admission Lab Data : 12/04/21 11:52 12/04/21 11:52 Radiology Impressions Chest X-Ray 12/04/21 11:06 IMPRESSION: No acute findings. Head CT 12/04/21 11:17 IMPRESSION: 1. No acute intracranial hemorrhage or edema. 2. Atrophy with advanced small vessel ischemic disease. Very similar appearance as compared to 08/30/2021 Abdomen/Pelvis CT 12/04/21 16:55 IMPRESSION: 1. Right lower lobe soft tissue mass of unclear etiology follow-up exam is recommended 2. Bilateral lower lobe pleural effusions. 3. Status post right nephrectomy. 4. Atrophic left kidney . 5. Renal transplant in the right pelvis with a 5 mm caliceal stone Laboratory Results WBC 11.8 10^3/uL (4.0-10.0) H 12/04/21 11:52 RBC 2.59 10^6/uL (4.1-5.3) L 12/04/21 11:52 Hgb 8.7 g/dL (11.7-16.6) L 12/04/21 11:52 Hct 28.6 % (42.0-52.0) L 12/04/21 11:52 MCV 110.4 fl (80-94) H 12/04/21 11:52 MCH 33.6 pg (28.0-34.0) 12/04/21 11:52 MCHC 30.4 g/dL (30.0-36.0) 12/04/21 11:52 RDW 15.9 % (12.1-15.1) H 12/04/21 11:52 Plt Count 88 10^3/cmm (130-400) L 12/04/21 11:52 MPV 10.1 fL (7.4-10.4) 12/04/21 11:52 Neut % (Auto) 79.8 % 12/04/21 11:52 Lymph % (Auto) 10.4 % 12/04/21 11:52 Tyler % (Auto) 8.1 % 12/04/21 11:52 Eos % (Auto) 0.0 % 12/04/21 11:52 Baso % (Auto) 0.2 % 12/04/21 11:52 Neut # (Auto) 9.40 10^3/uL (1.8-7.7) H 12/04/21 11:52 Lymph # (Auto) 1.2 10^3/uL (0.8-4.8) 12/04/21 11:52 Tyler # (Auto) 1.0 10^3/uL (0.2-0.9) H 12/04/21 11:52 Eos # (Auto) 0.0 10^3/uL (0.0-0.8) 12/04/21 11:52 Baso # (Auto) 0.0 10^3/uL (0.0-0.1) 12/04/21 11:52 Nucleated RBC % (auto) 0 % 12/04/21 11:52 Nucleated RBCs # 0.0 /100WBC 12/04/21 11:52 D-Dimer 3.49 ug/mIFEU (0-0.59) H 12/04/21 11:52 Sodium 141 mmol/L (136-145) 12/04/21 11:52 Potassium 3.6 mmol/L (3.5-5.1) 12/04/21 11:52 Chloride 109 mmol/L (98-107) H 12/04/21 11:52 Carbon Dioxide 18 mmol/L (22-29) L 12/04/21 11:52 Anion Gap 17.6 (5-19) 12/04/21 11:52 BUN 20 mg/dL (8-23) 12/04/21 11:52 Creatinine 1.4 mg/dL (0.7-1.2) H 12/04/21 11:52 GFR Calculation Not Reportable 12/04/21 11:52 Glucose 122 mg/dL (65-115) H 12/04/21 11:52 Calculated Osmolality 296 mOsm/kg (285-295) H 12/04/21 11:52 Calcium 8.5 mg/dL (8.5-10.5) 12/04/21 11:52 Total Bilirubin 1.1 mg/dL (0.15-1.2) 12/04/21 11:52 AST 19 U/L (0-40) 12/04/21 11:52 ALT 12 U/L (0-41) 12/04/21 11:52 Alkaline Phosphatase 111 IU/L (40-130) 12/04/21 11:52 Creatine Kinase 161 U/L (39-308) 12/04/21 11:52 Troponin T Baseline 55 ng/L (0-15) H 12/04/21 11:52 Total Protein 5.7 g/dL (6.6-8.7) L 12/04/21 11:52 Albumin 3.5 g/dL (3.5-5.2) 12/04/21 11:52 Globulin 2.2 g/dL (1.3-4.6) 12/04/21 11:52 Lipase 12 U/L (13-60) L 12/04/21 11:52 TSH 3.13 uIU/mL (0.27-4.20) 12/04/21 11:52 Free T4 1.19 ng/dL (0.82-1.77) 12/04/21 11:52 Urine Color Yellow (Yellow) 12/04/21 12:03 Urine Appearance Hazy (CLEAR) A 12/04/21 12:03 Urine pH 5 (5-7) 12/04/21 12:03 Ur Specific [place] 1.015 (1.005-1.030) 12/04/21 12:03 Urine Protein 2+ (Negative) H 12/04/21 12:03 Urine Glucose (UA) Norm (Normal) 12/04/21 12:03 Urine Ketones Negative (Negative) 12/04/21 12:03 Urine Blood 3+ (Negative) H 12/04/21 12:03 Urine Nitrate Positive (Negative) H 12/04/21 12:03 Urine Bilirubin Neg (Negative) 12/04/21 12:03 Urine Urobilinogen Neg mg/dL (Negative) 12/04/21 12:03 Ur Leukocyte Esterase 1+ (Negative) H 12/04/21 12:03 Urine RBC 10-15 /hpf (0-2) H 12/04/21 12:03 Urine WBC 15-25 /hpf (0-5) H 12/04/21 12:03 Ur Squamous Epith Cells 0-4 /hpf (0-5) H 12/04/21 12:03 Amorphous Sediment Not Reportable 12/04/21 12:03 Urine Bacteria 4+ /hpf (NONE) H 12/04/21 12:03 Imaging Data Other Imaging: Radiologist's impression: [facility] [address] [place] [address] XRay Report Signed Patient: Jing Coffey Unit #: [id number] : 1945 Age/Sex: 76 / M ADM Date: 12/04/21 Loc: ER Room/Bed: Attending Dr: Ordering Provider/Ordering MD: Saeid Skaggs MD Date of Service: 12/04/21 Procedure(s): XR chest 1V portable [id number] Accession Number(s): [id number] Report Number: [id number] PROCEDURE INFORMATION: Exam: XR Chest Exam date and time: 12/04/2021 11:11 AM Age: 76 years old Clinical indication: Other: See below; Patient HX: Failure to thrive, PT unable to give history; Additional info: Eval for pna TECHNIQUE: Imaging protocol: XR of the chest. Views: 1 view. COMPARISON: CR (CHEST, ) 08/30/2021 1:19 AM FINDINGS: Lungs: Unremarkable. No consolidation. Pleural spaces: Unremarkable. No pleural effusion. No pneumothorax. Heart/Mediastinum: Unremarkable. No cardiomegaly. Bones/joints: Unremarkable. Comparison to prior examination similar findings is seen XR/XR chest 1V portable [id number] IMPRESSION: No acute findings. ? Dictated By: Foster Tolliver Signed By: Foster Tolliver Signed Date/Time: 12/04/21 1138 DD/ [address] [facility] [address] [address] [address] Scan Report Signed Patient: Jing Coffey Unit #: [id number] : 1945 Age/Sex: 76 / M ADM Date: 12/04/21 Loc: ER Room/Bed: Attending Dr: Ordering Provider/Ordering MD: Saeid Skaggs MD Date of Service: 12/04/21 Procedure(s): CT head wo con* [id number] Accession Number(s): [id number] Report Number: [id number] WS: [id number] CT HEAD NONCONTRAST HISTORY: ams TECHNIQUE: Contiguous axial imaging performed through the brain in 2.5 mm imaging. Bone and soft tissue windows. Sagittal and coronal reformats reviewed.? All [facility] scans at [facility] use at least one of these dose optimization techniques: automated exposure control; mA and/or kV adjustment per patient size (includes targeted exams where dose is matched to clinical indication); or iterative reconstruction. DLP: 475.93 mGy.cm COMPARISON: 08/30/2021 No acute intracranial hemorrhage, midline shift or mass effect. Moderate atrophy and extensive chronic white matter ischemic disease. No focal area of effacement. Ventricles:? Ventricles are mildly prominent? on the basis of atrophy. No inferior displacement of cerebellar tonsils. Paranasal sinuses: As visualized are clear. Mastoid air cells: Well pneumatized. Calvarium and scalp: Skull is intact with no soft tissue edema or swelling. Heavy calcification in the intracranial carotid arteries. CT/CT head wo con* [id number] IMPRESSION: ? 1.? No acute intracranial hemorrhage or edema. 2.? Atrophy with advanced small vessel ischemic disease. Very similar appearance as compared to 08/30/2021 ? Dictated By: Latasha Irving DO Signed By: Latasha Irving DO Signed Date/Time: 12/04/21 1328 DD/ 1325 Discharge Plan Discharge Patient Disposition: Admitted As Inpatient Admit Provider: Ralph Cortez Clinical Impression: Dehydration, Adult failure to thrive, Gait instability, CASPER (acute kidney injury) Condition: Stable Coding Level of Care Code ED Salon Customer Experience Specialist for Chg Fwd Exam Comprehensive
[2021-12-04] MEDS: sodium chloride 0.9% 500 ML IV (11:50)
[2021-12-04 12:07] LABS: Basophils % 0.2 %; Hematocrit 28.6 % (42.0-52.0); Hemoglobin 8.7 g/dL (11.7-16.6); Lymphocytes # 1.2 10^3/uL (0.8-4.8); Lymphocytes % 10.4 %; Mean Corpuscular HGB Conc 30.4 g/dL (30.0-36.0); Mean Corpuscular Hemoglobin 33.6 pg (28.0-34.0); Mean Corpuscular Volume 110.4 fl (80-94); Mean Platelet Volume 10.1 fL (7.4-10.4); Monocytes % 8.1 %; Neutrophils % 79.8 %; Nucleated Red Blood Cells % 0 %; Platelet Count 88 10^3/cmm (130-400); Red Blood Count 2.59 10^6/uL (4.1-5.3); Red Cell Distribution Width 15.9 % (12.1-15.1); White Blood Count 11.8 10^3/uL (4.0-10.0)
[2021-12-04 12:37] LABS: Troponin(5th) Baseline 55 ng/L (0-15)
[2021-12-04 12:39] LABS: Add Urine Culture? Yes; Add Urine Microscopic? YES; Bacteria Urine 4+ /hpf; Bilirubin Urine Neg (Negative); Blood Urine 3+ (Negative); Glucose Urine UA Norm (Normal); Ketones Urine Negative (Negative); Leukocyte Esterase Urine 1+ (Negative); Nitrate Urine Positive (Negative); Protein Urine 2+ (Negative); Specific Gravity, Urine 1.015 (1.005-1.030); Squamous Epithelial Cell Urine 0-4 /hpf (0-5); Urine Appearance Hazy (CLEAR); Urine Color Yellow (Yellow); Urobilinogen Urine Neg (Negative); WBC Urine 15-25 /hpf (0-5); pH Urine 5 (5-7)
[2021-12-04 12:43] LABS: Alanine Aminotransferase 12 U/L (0-41); Albumin Level 3.5 g/dL (3.5-5.2); Alkaline Phosphatase 111 IU/L (40-130); Anion Gap 17.6 (5-19); Aspartate Amino Transferase 19 U/L (0-40); Blood Urea Nitrogen 20 mg/dL (8-23); Calcium 8.5 mg/dL (8.5-10.5); Carbon Dioxide 18 mmol/L (22-29); Chloride 109 mmol/L (98-107); Creatine Phosphokinase 161 U/L (39-308); Free T4 Free Thyroxine 1.19 ng/dL (0.82-1.77); Globulin 2.2 g/dL (1.3-4.6); Glucose 122 mg/dL (65-115); Lipase 12 U/L (13-60); Osmolality Calculated 296 mOsm/kg (285-295); Potassium 3.6 mmol/L (3.5-5.1); Sodium 141 mmol/L (136-145); Thyroid Stimulating Hormone 3.13 uIU/mL (0.27-4.20); Total Bilirubin 1.1 mg/dL (0.15-1.2); Total Protein 5.7 g/dL (6.6-8.7)
--- NOTE | 2021-12-04 13:17 | ECG_ITS ---
[facility] Test Date: 2021-12-04 Pat Name: Jing Coffey Department: Room: Gender: Male Design Consultant: : 1945 Requested By: Saeid Skaggs Order Number: [id number] Reading MD: Raj Cai M.D. Measurements Intervals [place] Rate: 106 P: 77 NC: 131 QRS: 45 QRSD: 84 T: 55 QT: 327 QTc: 434 Interpretive Statements SINUS TACHYCARDIA WITH OCCASIONAL SUPRAVENTRICULAR PREMATURE COMPLEXES LOW QRS VOLTAGE IN EXTREMITY LEADS [QRS DEFLECTION < 0.5 mV IN LIMB LEADS] MINIMAL ST DEPRESSION [0.025+ mV ST DEPRESSION] Compared to ECG 12/04/2021 11:56:10 ST (T wave) deviation now present Atrial fibrillation no longer present Ventricular premature complex(es) no longer present Aberrant conduction of supraventricular beat(s) no longer present T-wave abnormality no longer present Electronically Signed On 12-04-2021 17:01:30 CDT by Raj Cai M.D. [id number]
[2021-12-04] MEDS: cefTRIAXone 1,000 MG in sodium chloride 0.9% (plus) 50 ML 100 MG IV (13:41)
[2021-12-04] MEDS: sodium chloride 0.9% 1,000 ML 100 ML IV (13:45)
[2021-12-04 15:18] LABS: Adenovirus Not Detected (NOT DETECT); Chlamydia Pneumoniae Not Detected (NOT DETECT); Coronavirus 229E,HKU1,NL63,OC4 Not Detected (NOT DETECT); Human Metapneumovirus Not Detected (NOT DETECT); Human Rhinovirus/Enterovirus Not Detected (NOT DETECT); Influenza A Not Detected (NOT DETECT); Influenza A H1 Not Detected (NOT DETECT); Influenza A H1-2009 Not Detected (NOT DETECT); Influenza A H3 Not Detected (NOT DETECT); Influenza B Not Detected (NOT DETECT); Mycoplasma Pneumoniae Not Detected (NOT DETECT); Parainfluenza Virus Type 1 Not Detected (NOT DETECT); Parainfluenza Virus Type 2 Not Detected (NOT DETECT); Parainfluenza Virus Type 3 Not Detected (NOT DETECT); Parainfluenza Virus Type 4 Not Detected (NOT DETECT); Respiratory Syncytial Virus A Not Detected (NOT DETECT); Respiratory Syncytial Virus B Not Detected (NOT DETECT); SARS-COV-2 Not Detected (NOT DETECT)
[2021-12-04 15:38] LABS: Results from GENMARK
--- NOTE | 2021-12-04 16:55 | CTR_ITS ---
PROCEDURE INFORMATION: Exam: CT Abdomen And Pelvis Without Contrast Exam date and time: 12/04/2021 5:15 PM Age: 76 years old Clinical indication: Abdominal pain; Prior surgery; Surgery date: 6+ months; Surgery type: Renal; Additional info: UTI, makayla, renal cell cancer, kidney transplant TECHNIQUE: Imaging protocol: Computed tomography of the abdomen and pelvis without contrast. Radiation optimization: All CT scans at this facility use at least one of these dose optimization techniques: automated exposure control; mA and/or kV adjustment per patient size (includes targeted exams where dose is matched to clinical indication); or iterative reconstruction. COMPARISON: CR XR chest 1V portable [id number] 12/04/2021 11:11 AM RADIATION DOSE METRICS: Total DLP (mGy-cm): 1847.6 FINDINGS: Chest: Right lower lobe discloses a circumscribed noncalcified mass measuring 28 mm x 17 mm. This finding could not be seen on chest radiograph. This finding requires additional evaluation with chest CT examination with intravenous contrast. This will further evaluate the right lower lobe lesion and rule out lesions in other portions of the lung. Bilateral lower lobe pleural effusions are seen. Liver: Normal. No mass. Gallbladder and bile ducts: Normal. No calcified stones. No ductal dilation. Pancreas: Normal. No ductal dilation. Spleen: Normal. No splenomegaly. Adrenal glands: Normal. No mass. Kidneys and ureters: The left kidney is small in size and has an atrophic appearance. Is a right side renal transplant is seen in the pelvis with a 5 mm calcified nonobstructing caliceal stone. A normal appearing right kidney is not visible corresponding to nephrectomy. No hydronephrosis. Stomach and bowel: Unremarkable. No obstruction. No mucosal thickening. There is a large volume of fluid in the sigmoid colon and rectum. Appendix: No evidence of appendicitis. Intraperitoneal space: Unremarkable. No free air. No significant fluid collection. Vasculature: Unremarkable. No abdominal aortic aneurysm. Lymph nodes: Unremarkable. No enlarged lymph nodes. Urinary bladder: Unremarkable as visualized. Reproductive: Unremarkable as visualized. Multiple calcifications are seen within the prostate gland. Bones/joints: Unremarkable. No acute fracture. Soft tissues: Unremarkable. CT/CT kidney stone [id number] IMPRESSION: 1. Right lower lobe soft tissue mass of unclear etiology follow-up exam is recommended 2. Bilateral lower lobe pleural effusions. 3. Status post right nephrectomy. 4. Atrophic left kidney . 5. Renal transplant in the right pelvis with a 5 mm caliceal stone
--- NOTE | 2021-12-04 17:02 | PM.HP ---
Providers/Chief Complaint Admitting Physician: Ralph Cortez Primary Care Provider: Jenni Mccullough DO Chief Complaint: FAILURE TO THRIVE History of Present Illness 76-year-old gentleman with metastatic renal cell carcinoma, history of kidney transplant on tacrolimus, A. fib on anticoagulation, HTN, HLD, CKD, on chronic steroid, recently has been weak, with multiple recurrent falls, recently with pathologic spiral fracture of humerus after fall, after admission to the hospital, appears [facility], was transferred to [facility] where he underwent rehabilitation, was discharged on 12/02, subsequently found down at home seems possibly after 3 days on the floor, with generalized weakness, states did not fall down, but was too weak to get up. During prior hospitalization also with metabolic encephalopathy, currently lethargic, not able to provide much history, although does provide basic review of systems, and few short history details here and there, promptly falls back asleep. Denies currently any pain or discomfort. He is oriented. Most history obtained from ER documentation. His family is no longer in the room. Reported to have had 1 episode of vomiting. Reported to be found covered in urine and feces at home. In ER with noted mild leukocytosis 11.8, temperature 99.7. CASPER on CKD, creatinine 1.4, prior 1.1 in August, UA with 10-15 RBC, 15-25 WBC, 0-4 squamous epithelial cells, positive nitrate, 4+ bacteria. Lipase negative. During history he is noted coughing quite a bit, COVID-19 PCR negative, rapid flu negative. Troponin 55 at baseline and 2 hours without rise. CK 161. TSH 2.13, free T4 1.19. Chest x-ray without acute findings. Head CT without acute intracranial hemorrhage or edema. Atrophy with advanced small vessel ischemic disease. Very similar to prior 08/30/2021. Review of Systems Const: Reports: other (Generally weak) Card: Denies: chest pain or syncope Resp: Reports: non-productive cough; Denies: dyspnea GI: Reports: vomiting and diarrhea; Denies: abdominal pain : Denies: flank pain or hematuria Musc: Denies: neck pain or back pain Skin/Breast: Reports: erythema Neuro: Reports: difficulty walking and frequent falls; Denies: headache(s), numbness in extremities or weakness in extremities Medications/Allergies Home Medications Medication Instructions Recorded Confirmed Last Taken Type amlodipine 5 mg tablet 5 mg PO DAILY 08/30/21 12/04/21 08/29/21 History apixaban 5 mg tablet (Eliquis) 5 mg PO BID 08/30/21 12/04/21 08/29/21 History atorvastatin 40 mg tablet 40 mg PO DAILY 08/30/21 12/04/21 08/29/21 History cholecalciferol (vitamin D3) 25 25 mcg PO DAILY 08/30/21 12/04/21 08/29/21 History mcg (1,000 unit) capsule (Vitamin D3) levothyroxine 50 mcg tablet 50 mcg PO DAILY 08/30/21 12/04/21 08/29/21 History loperamide 2 mg capsule 2 mg PO Q4H PRN 08/30/21 12/04/21 08/30/21 History losartan 100 mg tablet 100 mg PO DAILY 08/30/21 12/04/21 08/29/21 History mirtazapine 15 mg tablet 15 mg PO DAILY 08/30/21 12/04/21 08/30/21 History prednisone 5 mg tablet 5 mg PO DAILY 08/30/21 12/04/21 08/29/21 History tacrolimus 1 mg capsule, 2 mg PO Q12H 08/30/21 12/04/21 08/29/21 History immediate-release tamsulosin 0.4 mg capsule 0.4 mg PO DAILY 08/30/21 12/04/21 08/29/21 History hydrocodone 5 mg-acetaminophen 325 1 tab PO Q6H PRN #14 tab 08/31/21 12/04/21 Unknown Rx mg tablet acetaminophen 325 mg tablet 325 mg PO QID PRN 12/04/21 12/04/21 Unknown History (Tylenol) calcium carbonate 200 mg calcium 200 mg PO BID PRN 12/04/21 12/04/21 Unknown History (500 mg) chewable tablet (Tums) famotidine 20 mg tablet 20 mg PO BID 12/04/21 12/04/21 Unknown History levalbuterol tartrate 45 2 inh INHALATION Q6H 12/04/21 12/04/21 Unknown History mcg/actuation aerosol inhaler melatonin 10 mg tablet 10 mg PO BEDTIME 12/04/21 12/04/21 Unknown History metoprolol tartrate 50 mg tablet 75 mg PO BID 12/04/21 12/04/21 Unknown History multivitamin with minerals-iron 15 ml PO DAILY 12/04/21 12/04/21 Unknown History fumarate 9 mg iron/15 mL oral liquid (Multi Vitamin) Allergies Allergy/AdvReac Type Severity Reaction Status Date / Time No Known Allergies Allergy Verified 12/04/21 11:01 PFSH Acute PFSH: Medical History Atrial fibrillation CKD (chronic kidney disease) Depression Displaced spiral fracture of shaft of humerus HLD (hyperlipidemia) HTN (hypertension) Hypothyroidism Renal cell carcinoma Surgical History Hx of kidney transplant Social History Smoking and tobacco status: never smoked Alcohol intake: never Substance/Drug Use: never Marital status: Vitals/I&O/Wt Last Vital Signs Temp 98.7 F 12/04/21 16:04 Pulse 89 12/04/21 16:55 Resp 20 H 12/04/21 16:04 BP 154/69 12/04/21 16:04 Pulse Ox 96 12/04/21 16:55 12/04/21 12/04/21 12/04/21 06:59 14:59 22:59 Intake Total 500 / 500 Balance 500 / 500 Weight last 48 hrs Weight 96.615 kg Weight 90.718 kg Physical Exam Const: GENERAL APPEARANCE: cooperative ORIENTATION/CONSCIOUSNESS: Yes lethargic HENMT: COMMON NORMALS: normocephalic, EAC's normal, Normal external nose present and moist oral mucous membranes HEAD & SCALP: normocephalic NOSE: Normal external nose present EXTERNAL AUDITORY CANAL: EAC's normal Eye: PUPIL: Yes Other pupil findings (equal) Neck/C-Spine: COMMON NORMALS: no meningeal signs Chest: CHEST: Yes Symmetrical chest wall rise Resp: COMMON NORMALS: clear to auscultation bilaterally AUSCULTATION: clear to auscultation bilaterally Cardio: COMMON NORMALS: regular rate, regular rhythm and No murmurs present (Cardio) RATE: regular rate RHYTHM: regular rhythm GI: COMMON NORMALS: Normal to inspection, nondistended, normoactive bowel sounds present, Soft to palpation and non-tender PALPATION: Yes Soft to palpation Extremity: GENERAL: Yes edema (1+) Neuro: COMMON NORMALS: moves all extremities SENSORIUM/ORIENTATION: Yes alert MENINGEAL SIGNS: Yes no meningeal signs Skin: GENERAL SKIN EXAM: erythema (Buttocks, sacrum, groin, scrotum) WOUNDS: Yes wounds noted (stage 1 sacral decub) Data : 12/04/21 11:52 12/04/21 11:52 A&P Assessment and plan (1) Acute encephalopathy: Found down on the floor for unknown duration time, but reported possibly as long as 3 days. Reported generalized weakness. Per recent documentation over the last several months has been very weak, with recurrent falls, with pathological spiral fracture of humerus for which was admitted, subsequently in rehabilitation at SNF. Was discharged on 12/02 back to home mostly independent. Prior admission also with acute encephalopathy thought to be metabolic. With CASPER. Dehydration. Similar presentation. Currently appears to have urinary tract infection, likely acute metabolic encephalopathy secondary to urinary infection, CASPER, possibly medications related, unclear how and if he has been taking his medications. Treat UTI, continue gentle fluid challenge, reassess renal function. With prolonged immobility, dehydration at risk for VTE, has transplanted kidney. Has dry cough. Denies chest pain or pressure. Saturating well on room air. Maintaining blood pressure. We will start with checking D-dimer. For now n.p.o. with sips and meds only. Will continue to tacrolimus for now, but will check level. Will request MRI brain. I could not reach his son by phone who is also no longer in the ER. Status: Acute (2) Acute kidney injury superimposed on CKD: With CASPER, UTI, will assess noncontrast CT renal protocol. Gentle IV fluid challenge. Reassess renal function. Hold losartan. Requesting records from [facility] where he was recently admitted. Resume tacrolimus for now, as presumed was not taking his medications, however, will check tacrolimus level also in the setting of CASPER. Target 4-11 ng/mL. Status: Acute (3) UTI (urinary tract infection): Continue ceftriaxone. Follow-up urine culture. Collect blood culture. Assess CT renal protocol. Status: Acute (4) Candidal intertrigo: Nystatin cream Status: Acute (5) Decubital ulcer: Possibly from prolonged immobilization. CK is normal. Reposition. Status: Acute (6) Thrombocytopenia: Appears chronic, present also back in August, although perhaps slightly worse at 88,000. Reassess level. Status: Acute (7) Generalized weakness: Recently with generally weakness, failure to thrive, multiple falls. With metastatic renal cell carcinoma. Details of his metastatic cancer is currently unknown, as well as prognosis or therapeutic plans and goals of care. He does appear to have been full code during recent admission. We will continue this for now as CODE STATUS currently unknown. Currently treat underlying conditions, will further need to discuss goals of care and disposition considerations once he is more alert. Status: Acute (8) Multiple falls: Status: Acute (9) Metastatic renal cell carcinoma: With recent pathologic spiral fracture of humerus. Status: Acute (10) Kidney transplanted: Continue tacrolimus for now, check level. Continue prednisone. Status: Acute (11) Long-term current use of tacrolimus: Check level, continue tacrolimus for now. Status: Acute (12) Chronic steroid use: Continue prednisone. Monitor for symptoms of adrenal insufficiency. Status: Acute Plan Diarrhea: Check C. difficile, stool culture, parasites A. fib: Continue metoprolol, Eliquis Hypothyroidism: Levothyroxine HTN HLD LUTS Depression Attestations Medical Necessity Statement*: Admission of over 2 midnights is anticipated for assessment of management of acute encephalopathy in a gentleman with UTI, CASPER, found down, with metastatic renal cell cancer, transplanted kidney, immunosuppressed. Coding Level of Care Code Acute Sock And Stocking Ironer for g Fwd Diagnoses Acute encephalopathy G93.40 Acute kidney injury superimposed on CKD N17.9; N18.9 UTI (urinary tract infection) N39.0 Candidal intertrigo B37.2 Decubital ulcer L89.90 Thrombocytopenia D69.6 Generalized weakness R53.1 Multiple falls R29.6 Metastatic renal cell carcinoma C64.9 Kidney transplanted Z94.0 Long-term current use of tacrolimus Z79.899 Chronic steroid use
--- NOTE | 2021-12-04 17:14 | PC.NURSE ---
PATIENT BELONGINGS Patient has wallet with him, he states he is okay with staff keeping it in the pyxis while he is admitted to the hospital. This nurse and Mateusz Jane with security counted money- $340 total. (2) 50 dollar bills, (11) 20 dollar bills, (3) 5 dollar bills, (5) 1 dollar bills. Patient's wallet was placed in biohazard bag and placed into the pyxis by this nurse and Tosha MONSALVE.
--- NOTE | 2021-12-04 17:17 | ECG_ITS ---
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 Measurements Intervals [place] Rate: P: CA: QRS: QRSD: T: QT: QTc: Interpretive Statements SINUS RHYTHM Compared to ECG 12/04/2021 13:20:24 Sinus tachycardia no longer present ST (T wave) deviation no longer present Electronically Signed On 12-04-2021 17:01:05 CDT by Raj Cai M.D. [id number]
[2021-12-04 18:00] LABS: D Dimer 3.49 ug/mIFEU (0-0.59)
[2021-12-04 18:27] LABS: Troponin 5 6HR 67.33 ng/L (0-15)
[2021-12-04] MEDS: metoprolol tartrate 50 mg Tablet 75 MG PO (18:36)
[2021-12-04] MEDS: apixaban 5 mg Tablet PO (18:36)
[2021-12-04] MEDS: famotidine 20 mg Tablet PO (18:36)
[2021-12-04 18:38] LABS: Troponin 5 6HR Delta 12.33 ng/L (0-12)
[2021-12-04] MEDS: nystatin cream 30 gm 1 APPLIC TOPICAL (19:54)
[2021-12-04] MEDS: acetaminophen 325 mg Tablet 650 MG PO (22:02)
[2021-12-04] MEDS: tacrolimus 0.5 mg Capsule 2 MG PO (22:04)
[2021-12-04] MEDS: sodium chloride 0.9% 1,000 ML 75 ML IV (22:05)
[2021-12-05 04:00] VITALS: BP 122/60; PULSE 71; RESP 16; TEMP 36.3; O2SAT 97
[2021-12-05 04:59] VITALS: BMI 27.1
[2021-12-05 05:57] LABS: Basophils % 0.3 %; Eosinophils % 0.5 %; Hematocrit 25.8 % (42.0-52.0); Hemoglobin 7.6 g/dL (11.7-16.6); Lymphocytes # 1.3 10^3/uL (0.8-4.8); Lymphocytes % 16.9 %; Mean Corpuscular HGB Conc 29.5 g/dL (30.0-36.0); Mean Corpuscular Hemoglobin 33.8 pg (28.0-34.0); Mean Corpuscular Volume 114.7 fl (80-94); Mean Platelet Volume 10.7 fL (7.4-10.4); Monocytes # 0.6 10^3/uL (0.2-0.9); Monocytes % 8.7 %; Neutrophils # 5.37 10^3/uL (1.8-7.7); Neutrophils % 72.7 %; Nucleated Red Blood Cells % 0 %; Platelet Count 65 10^3/cmm (130-400); Red Blood Count 2.25 10^6/uL (4.1-5.3); Red Cell Distribution Width 15.9 % (12.1-15.1); White Blood Count 7.4 10^3/uL (4.0-10.0)
[2021-12-05 06:25] LABS: Alanine Aminotransferase 9 U/L (0-41); Albumin Level 2.6 g/dL (3.5-5.2); Alkaline Phosphatase 92 IU/L (40-130); Anion Gap 16.8 (5-19); Aspartate Amino Transferase 17 U/L (0-40); Blood Urea Nitrogen 31 mg/dL (8-23); Carbon Dioxide 17 mmol/L (22-29); Chloride 113 mmol/L (98-107); Globulin 2.9 g/dL (1.3-4.6); Glucose 98 mg/dL (65-115); Osmolality Calculated 303 mOsm/kg (285-295); Potassium 3.8 mmol/L (3.5-5.1); Sodium 143 mmol/L (136-145); Total Bilirubin 0.7 mg/dL (0.15-1.2); Total Protein 5.5 g/dL (6.6-8.7)
[2021-12-05 06:26] LABS: Creatinine Clr Calc Pharmacy 39.4065
[2021-12-05] MEDS: levothyroxine 50 mcg Tablet PO (08:19)
[2021-12-05] MEDS: sodium chloride 0.9% 1,000 ML 75 ML IV (08:19)
[2021-12-05] MEDS: tacrolimus 0.5 mg Capsule 2 MG PO ×2 (08:19→21:28)
[2021-12-05] MEDS: tamsulosin 0.4 mg Capsule PO (08:20)
[2021-12-05] MEDS: apixaban 5 mg Tablet PO (08:20)
[2021-12-05] MEDS: nystatin cream 30 gm 1 APPLIC TOPICAL ×2 (08:20→19:15)
[2021-12-05] MEDS: atorvastatin 40 mg Tablet PO (08:20)
[2021-12-05] MEDS: predniSONE 5 mg Tablet PO (08:20)
[2021-12-05] MEDS: famotidine 20 mg Tablet PO ×2 (08:20→18:52)
[2021-12-05] MEDS: metoprolol tartrate 50 mg Tablet 75 MG PO ×2 (08:20→18:52)
[2021-12-05 08:48] VITALS: BP 129/72; PULSE 70; RESP 20; TEMP 37.8; O2SAT 95
[2021-12-05 08:49] LABS: Lactate Dehydrogenase 213 U/L (135-225)
[2021-12-05 09:14] VITALS: PULSE 70; O2SAT 95
--- NOTE | 2021-12-05 09:27 | NM_ITS ---
WS: [id number] NUCLEAR MEDICINE VENTILATION/PERFUSION LUNG SCAN HISTORY: Elevated ddimer, cough, assess for possible PE COMPARISON: Chest radiograph 12/04/2021 TECHNIQUE: Ventilation: 32.5 mCi of Technetium 99 DTPA aerosol inhaled. Perfusion: 5.3 mCi of technetium 99m MAA IV. Poor ventilatory portion of the examination. Very moderate deposition of radionuclide centrally. Othe rwise very limited distribution of the radionuclide beyond the hilar regions. Better perfusion evaluation then ventilation. Heart is enlarged. No focal wedge-shaped defect. NM/NM pul vent and perfus* [id number] IMPRESSION: Low probability pulmonary embolism.
--- NOTE | 2021-12-05 10:12 | P.CONIM_ITS ---
Providers/Reason For Consult Consulting Physician/Specialty*: Nephrology Reason for Consult*: Renal transplant dysfunction Attending Physician: Ralph Cortez Primary Care Provider: Jenni Mccullough DO History of Present Illness History of Present Illness Thank you for consultation, today the pleasure of reviewing this pleasant 76-year-old gentleman for evaluation of acute kidney injury of renal transplantation. He presented to our facility with weakness and falls. Looks like these have been recurrent now over the last 1 year. Earlier this year he sustained a fall resulting in a spiral fracture of the right humerus. He was subsequently transferred to rehab was subsequently discharged home on 12/02. It appears that he promptly fell to the floor on getting home and has been on the floor since. Too weak to get up. On arrival he was found to have urinary tract infection with bacteriuria, pyuria and microscopic hematuria. His white count was 11.8 and he has since had some fever. Temperature 102.5 yesterday evening. He is now started on Rocephin and azithromycin. He has had a kidney transplant since 2008, is typically followed by Dr. Hart. He takes a combination of Prograf and prednisone. Yesterday his creatinine was 1.4 increasing to 2 mg/dL today. Back in August creatinine 1.1 mg/dL the time of his transfer from this facility. He passes urine without any obstructive symptoms and no obstruction is seen on the CT of the abdomen and pelvis on admission. Denies any extremity edema, shortness of breath or other hypervolemic symptoms. Denies any recent exposure to potentially nephrotoxic substances. Hemodynamics are robust following hospitalization. He is somewhat unaware of the underlying cause of his end-stage renal disease. Review of Systems Narrative: 12 point review of systems completed per HPI and subjective assessment, this includes Constitutional: No weakness, fatigue Respiratory: No SOB on exertion, comfortable at rest CardioVasc: No chest pain, palpitations Gastrointestinal: No nausea, no vomiting Neurological: No seizures, no AMS Derm: No new rashes, lesions or wounds Immunological: No seasonal and no food allergies Medications/Allergies Home Medications Medication Instructions Recorded Confirmed Last Taken Type amlodipine 5 mg tablet 5 mg PO DAILY 08/30/21 12/04/21 08/29/21 History apixaban 5 mg tablet (Eliquis) 5 mg PO BID 08/30/21 12/04/21 08/29/21 History atorvastatin 40 mg tablet 40 mg PO DAILY 08/30/21 12/04/21 08/29/21 History cholecalciferol (vitamin D3) 25 25 mcg PO DAILY 08/30/21 12/04/21 08/29/21 History mcg (1,000 unit) capsule (Vitamin D3) levothyroxine 50 mcg tablet 50 mcg PO DAILY 08/30/21 12/04/21 08/29/21 History loperamide 2 mg capsule 2 mg PO Q4H PRN 08/30/21 12/04/21 08/30/21 History losartan 100 mg tablet 100 mg PO DAILY 08/30/21 12/04/21 08/29/21 History mirtazapine 15 mg tablet 15 mg PO DAILY 08/30/21 12/04/21 08/30/21 History prednisone 5 mg tablet 5 mg PO DAILY 08/30/21 12/04/21 08/29/21 History tacrolimus 1 mg capsule, 2 mg PO Q12H 08/30/21 12/04/21 08/29/21 History immediate-release tamsulosin 0.4 mg capsule 0.4 mg PO DAILY 08/30/21 12/04/21 08/29/21 History hydrocodone 5 mg-acetaminophen 325 1 tab PO Q6H PRN #14 tab 08/31/21 12/04/21 Unknown Rx mg tablet acetaminophen 325 mg tablet 325 mg PO QID PRN 12/04/21 12/04/21 Unknown History (Tylenol) calcium carbonate 200 mg calcium 200 mg PO BID PRN 12/04/21 12/04/21 Unknown H istory (500 mg) chewable tablet (Tums) famotidine 20 mg tablet 20 mg PO BID 12/04/21 12/04/21 Unknown History levalbuterol tartrate 45 2 inh INHALATION Q6H 12/04/21 12/04/21 Unknown History mcg/actuation aerosol inhaler melatonin 10 mg tablet 10 mg PO BEDTIME 12/04/21 12/04/21 Unknown History metoprolol tartrate 50 mg tablet 75 mg PO BID 12/04/21 12/04/21 Unknown History multivitamin with minerals-iron 15 ml PO DAILY 12/04/21 12/04/21 Unknown History fumarate 9 mg iron/15 mL oral liquid (Multi Vitamin) Allergies Allergy/AdvReac Type Severity Reaction Status Date / Time No Known Allergies Allergy Verified 12/04/21 11:01 Current Medications Generic Name Dose Route Start Last Admin Trade Name Arminq PRN Reason Stop Dose Admin Acetaminophen 650 mg 12/04/21 21:36 12/04/21 22:02 Acetaminophen 325 Mg Tablet PO 650 mg Q6H PRN Administration MILD PAIN Apixaban 5 mg 12/04/21 18:00 12/05/21 08:20 Apixaban 5 Mg Tablet PO 5 mg BID MAURI Administration Atorvastatin Calcium 40 mg 12/05/21 09:00 12/05/21 08:20 Atorvastatin 40 Mg Tablet PO 40 mg DAILY MAURI Administration Famotidine 20 mg 12/04/21 18:00 12/05/21 08:20 Famotidine 20 Mg Tablet PO 20 mg BID MAURI Administration Sodium Chloride 1,000 mls @ 75 mls/hr 12/04/21 22:00 12/05/21 08:19 Sodium Chloride 0.9% IV 75 mls/hr .[id number] MAURI Administration Levothyroxine Sodium 50 mcg 12/05/21 09:00 12/05/21 08:19 Levothyroxine 50 Mcg Tablet PO 50 mcg DAILY MAURI Administration Metoprolol Tartrate 75 mg 12/04/21 18:00 12/05/21 08:20 Metoprolol Tartrate 50 Mg Tablet PO 75 mg BID MAURI Administration Non-Formulary Medication 2 inh 12/04/21 17:15 12/04/21 18:34 Levalbuterol Tartrate INHALATION Not Given Q6H [facility] Nystatin 1 applic 12/04/21 18:00 12/05/21 08:20 Nystatin Cream 30 Gm TOPICAL 1 applic BID MAURI Administration Prednisone 5 mg 12/05/21 09:00 12/05/21 08:20 Prednisone 5 Mg Tablet PO 5 mg DAILY MAURI Administration Tacrolimus 2 mg 12/04/21 21:00 12/05/21 08:19 Tacrolimus 0.5 Mg Capsule PO 2 mg Q12H MAURI Administration Tamsulosin HCl 0.4 mg 12/05/21 09:00 12/05/21 08:20 Tamsulosin 0.4 Mg Capsule PO 0.4 mg DAILY MAURI Administration PFSH Acute PFSH: Medical History Atrial fibrillation CKD (chronic kidney disease) Depression Displaced spiral fracture of shaft of humerus HLD (hyperlipidemia) HTN (hypertension) Hypothyroidism Renal cell carcinoma Surgical History Hx of kidney transplant Social History Smoking and tobacco status: never smoked Alcohol intake: never Substance/Drug Use: never Marital status: Vitals/I&O/Wt Last Vital Signs Temp 100.1 F H 12/05/21 08:48 Pulse 70 12/05/21 09:14 Resp 20 H 12/05/21 08:48 BP 129/72 12/05/21 08:48 Pulse Ox 95 12/05/21 09:14 12/04/21 12/05/21 12/05/21 22:59 06:59 14:59 Intake Total 120 / 620 767.5 / 767.5 Output Total / 2 Balance - 498 118 / 616 767.5 / 767.5 Weight last 48 hrs Weight 98.43 kg Weight 96.615 kg Weight 90.718 kg Physical Exam Narrative: Constitutional: Awake, comfortable HEENT: Wet mucosa, no jvp, non icteric Lungs: Bilaterally clear without discernible wheeze, rales in all lung zones CVS: S1 S2, no murmurs Abdo: Soft, BS ok, palpable kidney with no bruit Ext 4: Minimal edema, peripheral perfusion with no cyanosis Neurological: Grossly non-focal Data : 12/05/21 05:10 12/05/21 05:10 Micro: Microbiology 12/05/21 00:15 C.difficile Toxin B Gene (PCR) - Final Stool Routine Collection 12/04/21 17:51 Blood Culture - Preliminary Blood SPECIMEN COLLECTED 12/04/21 17:50 Blood Culture - Preliminary Blood SPECIMEN COLLECTED A&P Assessment and plan (1) Kidney transplanted: 1. Allograft Acute dysfunction of allograft in the setting of urinary tract infection. Sometimes urinary tract infection of transplanted kidney can cause pseudorejection , with acute rise in serum creatinine that resolved following treatment of the urinary tract infection. Will give a little bit more volume, it appears that he will be able to tolerate this. As there is a possible element of prerenal azotemia. We will do a limited work-up to include urinalysis, urine sodium, fractional excretion of urinary sodium, uric acid, TSH, Prograf level. A.m. labs Dose meds for GFR less than 30 Strict I's and O's Avoid usual nephrotoxins 2. Immunosuppression Continue combination Prograf and prednisone at current doses Prograf trough requested for this evening prior to next dose. 3. Recurrent falls Currently has urinary tract infection, leukocytosis and fever, and I am sure infection is playing a role, however, it appears that he would now need to be committed to long-term intermediate care. 4. Hypertension Blood pressure is well controlled on current medication regimen, no changes, will continue to monitor his hemodynamics. 5. Elevated troponin Management per Dr Cortez Thank you for consultation, as always a pleasure to follow these patients with you King Ibrahim MD Nephrology [phone] Patient seen and examined via telemedicine, with the assistance of the bedside RN > 25 min spent in evaluation and mgmt of patient Status: Acute Coding Level of Care Code Acute Fire Prevention Captain for Linda Delacruz Diagnoses Kidney transplanted Z94.0
--- NOTE | 2021-12-05 10:43 | PC.CHAP ---
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 operator visit [] Patient/Family/Request visit [] Outpatient visit [] Follow-up visit [] Physician referral [] Code/Alert [x] Routine visit [] Staff referral [] Actively dying [] Patient sleeping [] Family support [] [] Out of room [] Palliative care [] [] Receiving care in room [] Pre-surgical visit [] Trauma [] Long length of stay [] ICU visit [] Other: Relational/Emotional Strength [x] Patient feels connected with others/family/visitors/staff [] Distress [] Loneliness/isolation [] Abandonment Spirituality of Patient [x] Person of Josy x[] Attends Confucianism of their Josy [x] Believes in Prayer [x] Reads Bible or Sabianist materials [] There are Spiritual issues to be addressed Rn Mental Health Interventions [x] Prayer [x] Active listening [x] Non-anxious presence [x] Spiritual/emotional support [] Crisis/trauma care [] Spiritual counseling [] Bereavement support [] Provided bereavement packet [] Provided Bible/devotional materials [] Provided toy/stuffed animal, coloring book to patient or family member [] Provided Communion [] Anointing/[place] [] Salvation [x] Completed spiritual assessment [] Other: Impact on Illness or Injury [] Angry [] Fearful [] Anxious [] Often cries [] Exhaustion [] Unable to work [] Unable to attend muslim [] Unable to walk/stand [] Unable to read [] Unable to drive [] Unable to eat/drink [] Unable to sleep [] Unable to be with family [] Patient intubated [] Other: Summary Time spent with patient 15 min
[2021-12-05 10:48] LABS: Thyroid Stimulating Hormone 4.33 uIU/mL (0.27-4.20)
[2021-12-05] MEDS: azithromycin 500 MG in sodium chloride 0.9% 250 ML 250 MG IV (10:58)
[2021-12-05] MEDS: lactated ringers 1,000 ML 500 ML IV (10:58)
--- NOTE | 2021-12-05 11:30 | MRR_ITS ---
PROCEDURE INFORMATION: Exam: MR Head Without Contrast Exam date and time: 12/05/2021 6:23 PM Age: 76 years old Clinical indication: Altered mental status/memory loss; Additional info: Encephalopathy, on tacrolimus TECHNIQUE: Imaging protocol: MR of the head without contrast. COMPARISON: CT head wo con* [id number] 12/04/2021 1:01 PM FINDINGS: Brain: A tiny subacute infarction is present in the right parietal lobe. Mild atrophy and mild to moderate white matter chronic microvascular changes are noted. No hemorrhage or midline shift. Cerebral ventricles: Normal. No ventriculomegaly. Bones/joints: Unremarkable. Paranasal sinuses: Mild left ethmoid sinusitis is noted. Mastoid air cells: Normal as visualized. No mastoid effusion. Orbital cavities: Unremarkable. Soft tissues: Unremarkable. MR/MR head wo con* [id number] IMPRESSION: 1. Tiny right parietal lobe subacute infarction. 2. Mild sinusitis.
[2021-12-05] MEDS: cefTRIAXone 1,000 MG in sodium chloride 0.9% (plus) 50 ML 100 MG IV (14:13)
--- NOTE | 2021-12-05 14:37 | P.PN_ITS ---
Subjective Subjective: He is more awake and alert today. He reports he is feeling better. Denies any particular pain or discomfort. He has been coughing. Dry cough. He is having low-grade fever. No chest pain. Vitals/I&O/Wt Last Vital Signs Temp 100.1 F H 12/05/21 08:48 Pulse 70 12/05/21 09:14 Resp 20 H 12/05/21 08:48 BP 129/72 12/05/21 08:48 Pulse Ox 95 12/05/21 09:14 12/04/21 12/05/21 12/05/21 22:59 06:59 14:59 Intake Total 120 / 620 2016.5 Output Total Balance - 498 118 / 616 2016. Weight last 48 hrs Weight 98.43 kg Weight 96.615 kg Weight 90.718 kg Physical Exam Const: COMMON NORMALS: alert GENERAL APPEARANCE: cooperative ORIENTATION/CONSCIOUSNESS: Yes awake OTHER: He is awake, although generally weak, somewhat sluggish. But definitely much more alert than yesterday, able to provide decent history with regards to his prior conditions, although goes into minute details on some things, where is some things cannot remember. HENMT: COMMON NORMALS: normocephalic, EAC's normal, Normal external nose present and moist oral mucous membranes HEAD & SCALP: normocephalic NOSE: Normal external nose present EXTERNAL AUDITORY CANAL: EAC's normal Neck/C-Spine: COMMON NORMALS: no meningeal signs Chest: CHEST: Yes Symmetrical chest wall rise Resp: COMMON NORMALS: clear to auscultation bilaterally AUSCULTATION: clear to auscultation bilaterally OTHER: Dry cough Cardio: COMMON NORMALS: regular rate, regular rhythm and No murmurs present (Cardio) RATE: regular rate RHYTHM: regular rhythm GI: COMMON NORMALS: Normal to inspection, nondistended, normoactive bowel sounds present, Soft to palpation and non-tender PALPATION: Yes Soft to palpation Extremity: COMMON NORMALS: no pedal edema GENERAL: Yes edema (1+) Neuro: COMMON NORMALS: moves all extremities SENSORIUM/ORIENTATION: Yes alert MENINGEAL SIGNS: Yes no meningeal signs Psych: COMMON NORMALS: mental status grossly normal Skin: COMMON NORMALS: no wounds GENERAL SKIN EXAM: erythema (Buttocks, sacrum, groin, scrotum) RASHES: no rashes WOUNDS: Yes wounds noted (stage 1 sacral decub) Data : 12/05/21 05:10 12/05/21 05:10 Micro: Microbiology 12/05/21 00:15 Enteric Pathogens (PCR) - Final Stool Routine Collection 12/04/21 12:03 Urine Culture - Preliminary Urine,Clean Catch Gram Negative Rods 12/05/21 00:15 C.difficile Toxin B Gene (PCR) - Final Stool Routine Collection 12/04/21 17:51 Blood Culture - Preliminary Blood SPECIMEN COLLECTED 12/04/21 17:50 Blood Culture - Preliminary Blood SPECIMEN COLLECTED A&P Assessment and plan (1) Acute encephalopathy: Significantly improved. He is much more alert, able to provide better history than yesterday. Still hazy on some details, and it takes him a while to get through his point, sometimes distract. States that he does not feel as sharp as usual. Reports that he was able to walk with a walker at [facility]. States that he did not feel significantly stronger after discharge from penitent[facility], in fact probably weaker. Denies any specific symptoms at home other than having significant weakness, having to stand the floor for about 16 hours over several days, until he had called for help and his son's caregiver came by and helped him. Discussed with him, acute metabolic encephalopathy secondary to urinary tract infection, he is having low-grade fever today. Discussed regarding possible bronchitis, possible atypical pneumonia, although COVID-19 panel, rapid flu negative. He states he forgot to take his tacrolimus at home. We are checking a level. Treat UTI, continue gentle fluid challenge, reassess renal function. With prolonged immobility, dehydration at risk for VTE, has transplanted kidney. Has dry cough. Denies chest pain or pressure. Saturating well on room air. Maintaining blood pressure. Discussed with him abnormal D-dimer. VQ scan obtained, low probability of PE. Trial of mechanical soft cardiac diet. Request MRI brain. Again attempted to reach his son by phone for update. Status: Acute (2) Acute kidney injury superimposed on CKD: Worsened renal function today. Requested nephrology consultation. Appreciate assessment. No obstructive uropathy on CT. No obvious pyelonephritis. Continue gentle IV fluid challenge. Reassess renal function. Hold losartan. Requesting records from [facility] where he was recently admitted. Resume tacrolimus for now, as presumed was not taking his medications, however, will check tacrolimus level also in the setting of CASPER. Target 4-11 ng/mL. Status: Acute (3) UTI (urinary tract infection): Complicated UTI with acute encephalopathy on presentation and gentleman with immunosuppression, history of kidney transplantation. Continue ceftriaxone. Follow-up urine culture. blood culture. No obstructive uropathy or obvious Be on CT renal protocol. Status: Acute (4) Candidal intertrigo: Nystatin cream Status: Acute (5) Decubital ulcer: Possibly from prolonged immobilization. CK is normal. Reposition. Status: Acute (6) Thrombocytopenia: Appears chronic, present also back in August, although perhaps slightly worse at 88,000. Reassess level. Status: Acute (7) Generalized weakness: Recently with generally weakness, failure to thrive, multiple falls. With metastatic renal cell carcinoma. Details of his metastatic cancer is currently unknown, as well as prognosis or therapeutic plans and goals of care. He does appear to have been full code during recent admission. We will continue this for now as CODE STATUS currently unknown. Currently treat underlying conditions, will further need to discuss goals of care and disposition considerations once he is more alert. Status: Acute (8) Multiple falls: Status: Acute (9) Metastatic renal cell carcinoma: With recent pathologic spiral fracture of humerus. He reports was following with oncologist Dr. Greene in [place], although has not seen her in a while with his recent hospitalizations and penitentiary stays. Tells me he was diagnosed probably about 14 years ago with metastatic renal cancer, although he is somewhat hazy on the details. He tells me he has had nephrectomy, he thinks possibly bilateral. 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 He states more recently has been following up with Dr. Hart, he states is a fisheries enforcement officer at [facility], who had him treated with an anticancer medication with which she was also having persistent diarrhea, although says that this medication was discontinued recently, he is not sure why. He has not so far yet followed up with Dr. Hart. He had been meaning to set an appointment for follow-up with all his providers after getting out from the penitentiary. Status: Acute (10) Kidney transplanted: Continue tacrolimus for now, check level. Continue prednisone. Status: Acute (11) Long-term current use of tacrolimus: Check level, continue tacrolimus for now. Status: Acute (12) Chronic steroid use: Continue prednisone. Monitor for symptoms of adrenal insufficiency. Status: Acute Plan Acute bronchitis: Possible atypical pneumonia, dry cough. No easily visible pneumonia on chest x-ray. COVID-19 panel, rapid flu negative. Dry cough. Low probability of PE. Immunosuppressed. For now continue ceftriaxone and added azithromycin for atypical coverage as discussed with him. Albuterol neb as needed. Antitussives as needed. Low-grade fever: 100.1 Fahrenheit noted fever today. Thrombocytopenia: Down to 65,000. Chronic, cytopenia, but currently slightly worse. Possibly secondary to acute infection. Requested LDH, haptoglobin. No suggestion of hemolysis. Checking tacrolimus level. TSH with mild elevation. Check free T4. Diarrhea: Check C. difficile, stool culture, parasites A. fib: Continue metoprolol, Eliquis Hypothyroidism: Levothyroxine HTN HLD LUTS Depression Attestations Medical Necessity Statement*: Continue admission for assessment management of complicated UTI, acute bronchitis, possible atypical pneumonia, improving acute encephalopathy in the setting of immunosuppression. Coding Level of Care Code Acute Blast Hole Driller for [facility] Fwd Diagnoses Acute encephalopathy G93.40 Acute kidney injury superimposed on CKD N17.9; N18.9 UTI (urinary tract infection) N39.0 Candidal intertrigo B37.2 Decubital ulcer L89.90 Thrombocytopenia D69.6 Generalized weakness R53.1 Multiple falls R29.6 Metastatic renal cell carcinoma C64.9 Kidney transplanted Z94.0 Long-term current use of tacrolimus Z79.899 Chronic steroid use
[2021-12-05 15:13] LABS: Free T4 Free Thyroxine 1.18 ng/dL (0.82-1.77)
[2021-12-05 16:10] VITALS: BP 123/75; PULSE 130; RESP 18; TEMP 36.9; O2SAT 98
[2021-12-05] MEDS: apixaban 5 mg Tablet 2.5 MG PO (19:15)
[2021-12-05 19:24] LABS: Urine Color Dark Yellow (Yellow)
[2021-12-05 19:25] LABS: Bilirubin Urine Neg (Negative); Blood Urine 3+ (Negative); Glucose Urine UA Norm (Normal); Ketones Urine Negative (Negative); Leukocyte Esterase Urine 1+ (Negative); Nitrate Urine Negative (Negative); Protein Urine 1+ (Negative); Urine Appearance SL Hazy (CLEAR); Urobilinogen Urine Norm (Negative); pH Urine 5 (5-7)
[2021-12-05 19:26] LABS: Creatinine Urine, Random 205 mg/dL (39-259); Urine Random Sodium 36 mmol/L
[2021-12-05 19:28] LABS: Bacteria Urine 3+ /hpf; Mucus Urine 1+ /hpf; RBC Urine 0-4 /hpf (0-2); Renal Epithelial Cells Urine 0 /hpf; Squamous Epithelial Cell Urine 0-4 /hpf (0-5); Transitional Epi Cells Urine 0-4 /hpf; WBC Urine 15-25 /hpf (0-5)
[2021-12-05 19:29] LABS: Add Urine Culture? Yes
[2021-12-05 20:00] VITALS: BP 133/91; PULSE 139; RESP 20; TEMP 36.8; O2SAT 98
[2021-12-06] VITALS (9 sets, daily range): BP systolic 121–143; BP diastolic 61–89; PULSE 60–86; RESP 16–24; TEMP 36.4–37.2; O2SAT 70–100
[2021-12-06] MEDS: sodium chloride 0.9% 1,000 ML 75 ML IV (00:49)
[2021-12-06 04:44] LABS: Basophils % 0.2 %; Eosinophils # 0.1 10^3/uL (0.0-0.8); Hematocrit 26.2 % (42.0-52.0); Lymphocytes # 0.9 10^3/uL (0.8-4.8); Lymphocytes % 16.2 %; Mean Corpuscular HGB Conc 30.5 g/dL (30.0-36.0); Mean Corpuscular Hemoglobin 33.6 pg (28.0-34.0); Mean Corpuscular Volume 110.1 fl (80-94); Mean Platelet Volume 11.9 fL (7.4-10.4); Monocytes # 0.4 10^3/uL (0.2-0.9); Monocytes % 7.6 %; Neutrophils % 74.1 %; Nucleated Red Blood Cells % 0 %; Platelet Count 62 10^3/cmm (130-400); Red Blood Count 2.38 10^6/uL (4.1-5.3); Red Cell Distribution Width 15.7 % (12.1-15.1); White Blood Count 5.8 10^3/uL (4.0-10.0)
[2021-12-06 05:07] LABS: Alanine Aminotransferase 11 U/L (0-41); Albumin Level 2.7 g/dL (3.5-5.2); Alkaline Phosphatase 87 IU/L (40-130); Anion Gap 16.3 (5-19); Aspartate Amino Transferase 18 U/L (0-40); Blood Urea Nitrogen 35 mg/dL (8-23); Calcium 8.9 mg/dL (8.5-10.5); Carbon Dioxide 17 mmol/L (22-29); Chloride 111 mmol/L (98-107); Glucose 102 mg/dL (65-115); Osmolality Calculated 300 mOsm/kg (285-295); Potassium 3.3 mmol/L (3.5-5.1); Sodium 141 mmol/L (136-145); Total Bilirubin 0.6 mg/dL (0.15-1.2); Total Protein 5.7 g/dL (6.6-8.7)
[2021-12-06] MEDS: metoprolol tartrate 50 mg Tablet 75 MG PO ×2 (08:30→17:28)
[2021-12-06] MEDS: tacrolimus 0.5 mg Capsule 2 MG PO ×2 (08:30→20:27)
[2021-12-06] MEDS: atorvastatin 40 mg Tablet PO (08:30)
[2021-12-06] MEDS: apixaban 5 mg Tablet 2.5 MG PO (08:30)
[2021-12-06] MEDS: levothyroxine 50 mcg Tablet PO (08:30)
[2021-12-06] MEDS: predniSONE 5 mg Tablet PO (08:30)
[2021-12-06] MEDS: tamsulosin 0.4 mg Capsule PO (08:30)
[2021-12-06] MEDS: famotidine 20 mg Tablet PO ×2 (08:30→17:30)
[2021-12-06] MEDS: nystatin cream 30 gm 1 APPLIC TOPICAL ×2 (08:31→17:31)
--- NOTE | 2021-12-06 08:46 | P.PN_ITS ---
Subjective Subjective: Mr Coffey remains comfortable with no specific complaints. Eating and drinking reasonably well today. No extremity edema, shortness of breath or other hypervolemic symptoms. Vitals/I&O/Wt Last Vital Signs Temp 97.8 F 12/06/21 08:00 Pulse 70 12/06/21 08:00 Resp 18 12/06/21 08:00 BP 136/81 12/06/21 08:00 Pulse Ox 98 12/06/21 08:00 12/05/21 12/06/21 12/06/21 22:59 06:59 14:59 Intake Total 2116.5 1150 / 3267.5 Output Total 100 / 100 Balance -2016. 1150 / 3167.5 Weight last 48 hrs Weight 102.512 kg Weight 98.43 kg Weight 96.615 kg Weight 90.718 kg Physical Exam Narrative: Constitutional: Awake, comfortable HEENT: Wet mucosa, no jvp, non icteric Lungs: Bilaterally clear without discernible wheeze, rales in all lung zones CVS: S1 S2, no murmurs Abdo: Soft, BS ok, palpable kidney with no bruit Ext 4: Minimal edema, peripheral perfusion with no cyanosis Neurological: Grossly non-focal Data : 12/06/21 03:50 12/06/21 03:50 Micro: Microbiology 12/04/21 17:51 Blood Culture - Preliminary Blood NEGATIVE TO DATE 12/04/21 17:50 Blood Culture - Preliminary Blood NEGATIVE TO DATE 12/05/21 00:15 Enteric Pathogens (PCR) - Final Stool Routine Collection 12/04/21 12:03 Urine Culture - Preliminary Urine,Clean Catch Gram Negative Rods 12/05/21 00:15 C.difficile Toxin B Gene (PCR) - Final Stool Routine Collection A&P Assessment and plan (1) Kidney transplanted: 1. Allograft Acute dysfunction of allograft in the setting of urinary tract infection. So metimes urinary tract infection of transplanted kidney can cause pseudorejection , with acute rise in serum creatinine that resolved following treatment of the urinary tract infection. Creatinine now coming down to baseline if he has a good oral intake we can DC ivf A.m. labs Dose meds for GFR less than 30 Strict I's and O's Avoid usual nephrotoxins 2. Immunosuppression Continue combination Prograf and prednisone at current doses Prograf trough requested and pending goal 4-6 3. Recurrent falls Currently has urinary tract infection, leukocytosis and fever, and I am sure infection is playing a role, however, it appears that he would now need to be committed to long-term half-way care. 4. Hypertension Blood pressure is well controlled on current medication regimen, no changes, will continue to monitor his hemodynamics. 5. Elevated troponin Management per Dr Cortez - will need transfer to SNF post DC - ok for transfer in n ext 24hrs from my own perspective Thank you for consultation, as always a pleasure to follow these patients with you King Ibrahim MD Nephrology [phone] Patient seen and examined via telemedicine, with the assistance of the bedside RN > 25 min spent in evaluation and mgmt of patient Status: Acute Attestations Medical Necessity Statement*: eval for renal transplant Coding Level of Care Code Acute Postal Delivery Officer for [facility] Diagnoses Kidney transplanted Z94.0
[2021-12-06] MEDS: azithromycin 500 MG in sodium chloride 0.9% 250 ML 250 MG IV (10:48)
--- NOTE | 2021-12-06 13:32 | PC.NURSE ---
PRESSURE ULCER HEALED no sacral or gluteal wound present upon inspection of pts buttock. Blanchable erythema noted to bilateral gluteus. Applied aloe vesta to reddened areas.
[2021-12-06] MEDS: cefTRIAXone 1,000 MG in sodium chloride 0.9% (plus) 50 ML 100 MG IV (14:27)
--- NOTE | 2021-12-06 16:12 | PM.PN ---
Subjective Subjective: He reports he is continue to feel better. Feels sharper. Denies pain or discomfort today. Chronic loose stools. Vitals/I&O/Wt Last Vital Signs Temp 98.1 F 12/06/21 15:24 Pulse 66 12/06/21 15:24 Resp 24 H 12/06/21 15:24 BP 138/80 12/06/21 15:24 Pulse Ox 95 12/06/21 15:24 12/06/21 12/06/21 12/06/21 06:59 14:59 22:59 Intake Total 1150 / 3267.5 690 / 690 1050 / 1740 Balance 1150 / 3167.5 690 / 690 1050 / 1740 Weight last 48 hrs Weight 102.512 kg Weight 98.43 kg Physical Exam Const: COMMON NORMALS: alert GENERAL APPEARANCE: cooperative ORIENTATION/CONSCIOUSNESS: Yes awake OTHER: He is awake, mildly stronger. But definitely much more alert than yesterday, able to provide decent history with regards to his prior conditions, although goes into minute details on some things, where is some things cannot remember. HENMT: COMMON NORMALS: normocephalic, EAC's normal, Normal external nose present and moist oral mucous membranes HEAD & SCALP: normocephalic NOSE: Normal external nose present EXTERNAL AUDITORY CANAL: EAC's normal Eye: PUPIL: Yes Other pupil findings (equal) Neck/C-Spine: COMMON NORMALS: no meningeal signs Chest: CHEST: Yes Symmetrical chest wall rise Resp: COMMON NORMALS: clear to auscultation bilaterally AUSCULTATION: clear to auscultation bilaterally OTHER: Dry cough improved Cardio: COMMON NORMALS: regular rate, regular rhythm and No murmurs present (Cardio) RATE: regular rate RHYTHM: regular rhythm GI: COMMON NORMALS: Normal to inspection, nondistended, normoactive bowel sounds present, Soft to palpation and non-tender PALPATION: Yes Soft to palpation Extremity: COMMON NORMALS: no pedal edema GENERAL: Yes edema (1+) Neuro: COMMON NORMALS: moves all extremities SENSORIUM/ORIENTATION: Yes alert MENINGEAL SIGNS: Yes no meningeal signs Psych: COMMON NORMALS: mental status grossly normal Skin: COMMON NORMALS: no wounds GENERAL SKIN EXAM: erythema (Buttocks, sacrum, groin, scrotum) RASHES: no rashes WOUNDS: Yes wounds noted (stage 1 sacral decub) Data : 12/06/21 03:50 12/06/21 03:50 Micro: Microbiology 12/04/21 12:03 Urine Culture - Final Urine,Clean Catch Klebsiella pneumoniae 12/04/21 17:51 Blood Culture - Preliminary Blood NEGATIVE TO DATE 12/04/21 17:50 Blood Culture - Preliminary Blood NEGATIVE TO DATE A&P Assessment and plan (1) Acute kidney injury superimposed on CKD: With improvement in renal function today, creatinine down to 1.7. Nephrology assessment appreciated, with possibility of severe rejection in setting of complicated urinary tract infection. Continue treatment of infection. Gentle IV fluid challenge. Attempt to discontinue with improved oral intake. Tacrolimus level pending. No obstructive uropathy on CT. No obvious pyelonephritis. Hold losartan. Requested records from [facility] where he was recently admitted. Attempted to reach son for update by phone. Status: Acute (2) UTI (urinary tract infection): Klebsiella growing in urine. Continue ceftriaxone. Complicated UTI with acute encephalopathy on presentation and gentleman with immunosuppression, history of kidney transplantation. No obstructive uropathy or obvious Be on CT renal protocol. Status: Acute (3) Thrombocytopenia: Worsened thrombocytopenia. Follow-up Prograf level. Suspect secondary to infection. Eliquis held for now with platelets down to 62,000, decreasing. For now prophylactic heparin. No suggestion of hemolysis. Status: Acute (4) Acute encephalopathy: Significantly improved. He is much more alert. Discussed with him, acute metabolic encephalopathy secondary to urinary tract infection, he is having low-grade fever today. Discussed regarding possible bronchitis, possible atypical pneumonia, although COVID-19 panel, rapid flu negative. 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 Mild sinusitis. Resume Eliquis when able. Consider aspirin. Continue statin. May benefit from better blood pressure control long-term. Will obtain carotid duplex. He states he forgot to take his tacrolimus at home. We are checking a level. Treat UTI, continue gentle fluid challenge, reassess renal function. With prolonged immobility, dehydration at risk for VTE, has transplanted kidney. Has dry cough. Denies chest pain or pressure. Saturating well on room air. Maintaining blood pressure. Discussed with him abnormal D-dimer. VQ scan obtained, low probability of PE. Trial of mechanical soft cardiac diet. Status: Acute (5) Candidal intertrigo: Nystatin cream Status: Acute (6) Decubital ulcer: Possibly from prolonged immobilization. CK is normal. Reposition. Status: Acute (7) Generalized weakness: Mental status is better. PT, OT assessment. He will need to return to SNF. Recently with generally weakness, failure to thrive, multiple falls. With metastatic renal cell carcinoma. Will need to resume follow-up with oncology. Details of his metastatic cancer is currently unknown, as well as prognosis or therapeutic plans and goals of care. He appears would want to continue treatment, although has not tolerated well, and his functional capacity has been declining. Status: Acute (8) Multiple falls: Status: Acute (9) Metastatic renal cell carcinoma: With recent pathologic spiral fracture of humerus. He reports was following with oncologist Dr. Greene in [place], although has not seen her in a while with his recent hospitalizations and long-term stays. Tells me he was diagnosed probably about 14 years ago with metastatic renal cancer, although he is somewhat hazy on the details. He tells me he has had nephrectomy, he thinks possibly bilateral. 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 He states more recently has been following up with Dr. Hart, he states is a heel cover splitter at [facility], who had him treated with an anticancer medication with which she was also having persistent diarrhea, although says that this medication was discontinued recently, he is not sure why. He has not so far yet followed up with Dr. Hart. He had been meaning to set an appointment for follow-up with all his providers after getting out from the long-term. Status: Acute (10) Kidney transplanted: Continue tacrolimus for now, check level. Continue prednisone. Status: Acute (11) Long-term current use of tacrolimus: Check level, continue tacrolimus for now. Status: Acute (12) Chronic steroid use: Continue prednisone. Monitor for symptoms of adrenal insufficiency. Status: Acute Plan Acute bronchitis: Improving, cough is improving. Possible atypical pneumonia, dry cough. No easily visible pneumonia on chest x-ray. COVID-19 panel, rapid flu negative. Dry cough. Low probability of PE. Immunosuppressed. For now continue ceftriaxone and added azithromycin for atypical coverage as discussed with him. Albuterol neb as needed. Antitussives as needed. Low-grade fever: 100.1 Fahrenheit noted fever today. Diarrhea: Negative C. difficile, stool culture, ordered parasites A. fib: Continue metoprolol, held Eliquis Hypothyroidism: Mildly elevated TSH, free T4 WNL, continue levothyroxine, reassess as outpatient. HTN HLD LUTS Depression Attestations Medical Necessity Statement*: Continue admission for assessment management of complicated UTI, CASPER, in a gentleman with kidney transplant, immunosuppressed, disposition planning and arrangements. Coding Level of Care Code Acute Proposal Rep for [facility] Fwd Diagnoses Acute encephalopathy G93.40 Acute kidney injury superimposed on CKD N17.9; N18.9 UTI (urinary tract infection) N39.0 Candidal intertrigo B37.2 Decubital ulcer L89.90 Thrombocytopenia D69.6 Generalized weakness R53.1 Multiple falls R29.6 Metastatic renal cell carcinoma C64.9 Kidney transplanted Z94.0 Long-term current use of tacrolimus Z79.899 Chronic steroid use
--- NOTE | 2021-12-06 16:21 | USR_ITS ---
PROCEDURE INFORMATION: Exam: US Duplex Bilateral Extracranial Arteries, Carotid Arteries Exam date and time: 12/06/2021 4:34 PM Age: 76 years old Clinical indication: Altered mental status/memory loss; Confusion or disorientation; Additional info: CVA TECHNIQUE: Imaging protocol: Real-time Duplex ultrasound scan of the bilateral carotid and vertebral arteries combining briones scale, color Doppler and spectral waveform analysis. Bilateral exam. Exam focused on the carotid arteries. COMPARISON: CT head wo con* [id number] 12/04/2021 1:01 PM FINDINGS: Right common carotid artery: Moderate subocclusive mixed echogenicity plaque. No occlusion or stenosis. Waveforms are normal. Right internal carotid artery: Minimal plaque. No occlusion or stenosis. Waveforms are normal. Right ICA/CCA ratio: Within normal limits. 1.19 Right external carotid artery: No stenosis in the origin. Right vertebral artery: Unremarkable. Antegrade flow. Left common carotid artery: Mild hypoechoic plaque.. No occlusion or stenosis. Waveforms are normal. Left internal carotid artery: Unremarkable. No occlusion or stenosis. There is some spectral broadening. Left ICA/CCA ratio: Within normal limits. 1.13. Left external carotid artery: No stenosis in the origin. Left vertebral artery: Unremarkable. Antegrade flow. US/CV carotid duplex BI* [id number] IMPRESSION: No carotid arterial stenosis. REFERENCES: SRU CRITERIA. The degree of internal carotid artery stenosis is based on criteria defined by the Society of Radiologists in Ultrasound (SRU). Normal is no stenosis. Mild is less than 50% stenosis. Moderate is 50-69% stenosis. Severe is greater than 69% stenosis to near occlusion. Near occlusion is a markedly narrowed lumen. Total occlusion is no detectable patent lumen.
[2021-12-06] MEDS: heparin 5,000 unit/mL INJ 1 mL 5000 UNIT SUBCUT (20:27)
[2021-12-07] VITALS (7 sets, daily range): BP systolic 137–160; BP diastolic 77–90; PULSE 67–110; RESP 16–24; TEMP 36.3–36.8; O2SAT 93–98
[2021-12-07 04:54] LABS: Basophils % 0.2 %; Eosinophils % 0.9 %; Hematocrit 25.7 % (42.0-52.0); Hemoglobin 7.8 g/dL (11.7-16.6); Lymphocytes # 0.9 10^3/uL (0.8-4.8); Lymphocytes % 19.2 %; Mean Corpuscular HGB Conc 30.4 g/dL (30.0-36.0); Mean Corpuscular Hemoglobin 33.3 pg (28.0-34.0); Mean Corpuscular Volume 109.8 fl (80-94); Mean Platelet Volume 12.3 fL (7.4-10.4); Monocytes # 0.4 10^3/uL (0.2-0.9); Monocytes % 8.9 %; Neutrophils % 69.2 %; Nucleated Red Blood Cells % 0 %; Platelet Count 68 10^3/cmm (130-400); Red Blood Count 2.34 10^6/uL (4.1-5.3); Red Cell Distribution Width 15.2 % (12.1-15.1); White Blood Count 4.5 10^3/uL (4.0-10.0)
[2021-12-07 05:07] LABS: Alanine Aminotransferase 12 U/L (0-41); Albumin Level 2.8 g/dL (3.5-5.2); Alkaline Phosphatase 85 IU/L (40-130); Anion Gap 14.2 (5-19); Aspartate Amino Transferase 18 U/L (0-40); Blood Urea Nitrogen 37 mg/dL (8-23); Calcium 8.9 mg/dL (8.5-10.5); Carbon Dioxide 17 mmol/L (22-29); Chloride 112 mmol/L (98-107); Globulin 2.9 g/dL (1.3-4.6); Glucose 115 mg/dL (65-115); Osmolality Calculated 300 mOsm/kg (285-295); Potassium 3.2 mmol/L (3.5-5.1); Sodium 140 mmol/L (136-145); Total Bilirubin 0.5 mg/dL (0.15-1.2); Total Protein 5.7 g/dL (6.6-8.7)
[2021-12-07] MEDS: heparin 5,000 unit/mL INJ 1 mL 5000 UNIT SUBCUT ×3 (05:31→20:30)
[2021-12-07] MEDS: tacrolimus 0.5 mg Capsule 2 MG PO ×2 (08:16→20:30)
[2021-12-07] MEDS: atorvastatin 40 mg Tablet PO (08:16)
[2021-12-07] MEDS: predniSONE 5 mg Tablet PO (08:17)
[2021-12-07] MEDS: metoprolol tartrate 50 mg Tablet 75 MG PO ×2 (08:17→17:13)
[2021-12-07] MEDS: tamsulosin 0.4 mg Capsule PO (08:17)
[2021-12-07] MEDS: famotidine 20 mg Tablet PO ×2 (08:17→17:13)
[2021-12-07] MEDS: levothyroxine 50 mcg Tablet PO (08:17)
[2021-12-07] MEDS: nystatin cream 30 gm 1 APPLIC TOPICAL (08:22)
--- NOTE | 2021-12-07 11:27 | PC.SOCIAL ---
IMM Update pg 2 of IMM updated and reviewed w/ patient. Copy provided and Copy placed in chart.
[2021-12-07] MEDS: azithromycin 500 MG in sodium chloride 0.9% 250 ML 250 MG IV (11:48)
[2021-12-07] MEDS: cefTRIAXone 1,000 MG in sodium chloride 0.9% (plus) 50 ML 100 MG IV (12:52)
--- NOTE | 2021-12-07 14:15 | PC.NURSE ---
PT PULLED IV OUT Upon entering room pt removed his IV and had blood on gown and arm. Pt is confused and talking about a girl in his room that needs to go home. When trying to clean up patient he states you are messing with a crime scene. the maple syrup maker will not like this. i educated him that we were at the hospital not a crime scene, but he continued to deny. Pt was stable when I left the room with bed in low position, table and call light within reach. This information was relayed to charge nurse Binta and pts nurse Tran.
--- NOTE | 2021-12-07 17:56 | PC.NURSE ---
Patient resting in bed, AAOx1 to self, sitter at bedside as patient started having visual hallucinations and pulling on tubes, pulling out IV. Patient states, who is this girl in my bed, you better get her out. while trying to grab ahold of pillow behind him. Patient attempted to use call light for 911 but was not able to say why he was attempting to call them. Will continue to monitor and report to oncoming nurse at shift change.
--- NOTE | 2021-12-07 20:24 | PM.PN ---
Subjective Subjective: This morning he is confused. He is awake and alert, but pulled off his gown, thinks he is in [employer]. Vitals/I&O/Wt Last Vital Signs Temp 98 F 12/07/21 20:00 Pulse 68 12/07/21 20:00 Resp 18 12/07/21 20:00 BP 141/77 12/07/21 20:00 Pulse Ox 97 12/07/21 20:00 12/07/21 12/07/21 12/07/21 06:59 14:59 22:59 Intake Total 2072 600 / 600 120 / 720 Output Total 150 / 150 Balance 2072 600 / 600 -30 / 570 Weight last 48 hrs Weight 99.745 kg Weight 102.512 kg Physical Exam Const: COMMON NORMALS: alert ORIENTATION/CONSCIOUSNESS: Yes awake and Yes confused OTHER: Pulled off his gown HENMT: COMMON NORMALS: normocephalic, EAC's normal, Normal external nose present and moist oral mucous membranes HEAD & SCALP: normocephalic NOSE: Normal external nose present EXTERNAL AUDITORY CANAL: EAC's normal Eye: PUPIL: Yes Other pupil findings (equal) Neck/C-Spine: COMMON NORMALS: no meningeal signs Chest: CHEST: Yes Symmetrical chest wall rise Resp: COMMON NORMALS: clear to auscultation bilaterally AUSCULTATION: clear to auscultation bilaterally OTHER: Dry cough improved Cardio: COMMON NORMALS: regular rate, regular rhythm and No murmurs present (Cardio) RATE: regular rate RHYTHM: regular rhythm GI: COMMON NORMALS: Normal to inspection, nondistended, normoactive bowel sounds present, Soft to palpation and non-tender PALPATION: Yes Soft to palpation Extremity: COMMON NORMALS: no pedal edema GENERAL: Yes edema (1+) Neuro: COMMON NORMALS: moves all extremities SENSORIUM/ORIENTATION: Yes alert MENINGEAL SIGNS: Yes no meningeal signs Psych: COMMON NORMALS: mental status grossly normal Skin: COMMON NORMALS: no wounds GENERAL SKIN EXAM: erythema (Buttocks, sacrum, groin, scrotum) RASHES: no rashes WOUNDS: Yes wounds noted (stage 1 sacral decub) Data : 12/07/21 04:27 12/07/21 04:27 Micro: Microbiology 12/05/21 18:50 Urine Culture - Preliminary Urine,Clean Catch A&P Assessment and plan (1) Acute encephalopathy: He had initially improved, today, however, noted confused. Thinks he is in warmer. Pulled off his gown. Later on pulled out his IV. Requested one-to-one sitter. Suspect delirium with waxing and waning mental status, secondary to acute metabolic encephalopathy secondary to urinary tract infection. Improving bossible bronchitis, possible atypical pneumonia. 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 Mild sinusitis. Resume Eliquis when able. Consider aspirin. Continue statin. May benefit from better blood pressure control long-term. No carotid artery stenosis on carotid duplex. Pending tacrolimus level. Treat UTI, continue gentle fluid challenge, reassess renal function. With prolonged immobility, dehydration at risk for VTE, has transplanted kidney. Had dry cough. Abnormal D-dimer. VQ scan obtained, low probability of PE. Again could not reach her son by phone. Status: Acute (2) Acute kidney injury superimposed on CKD: Some improvement in renal function, although today creatinine stated 1.8. Nephrology assessment appreciated, with possibility of severe rejection in setting of complicated urinary tract infection. Continue treatment of infection. Gentle IV fluid challenge. Attempt to discontinue with improved oral intake. Tacrolimus level pending. No obstructive uropathy on CT. No obvious pyelonephritis. Hold losartan. Requested records from [facility] where he was recently admitted. Status: Acute (3) UTI (urinary tract infection): Klebsiella growing in urine. Continue ceftriaxone. Complicated UTI with acute encephalopathy on presentation and gentleman with immunosuppression, history of kidney transplantation. No obstructive uropathy or obvious pyelo on CT renal protocol. Status: Acute (4) Thrombocytopenia: Worsened thrombocytopenia. Follow-up Prograf level. Suspect secondary to infection. Eliquis held for now with platelets down to 62,000. For now prophylactic heparin. No suggestion of hemolysis. Status: Acute (5) Candidal intertrigo: Nystatin cream Status: Acute (6) Decubital ulcer: Possibly from prolonged immobilization. CK is normal. Reposition. Status: Acute (7) Generalized weakness: Mental status fluctuating. PT, OT assessment. He will need to return to SNF. Recently with generally weakness, failure to thrive, multiple falls. With metastatic renal cell carcinoma. Will need to resume follow-up with oncology. Details of his metastatic cancer is currently unknown, as well as prognosis or therapeutic plans and goals of care. He appears would want to continue treatment, although has not tolerated well, and his functional capacity has been declining. Status: Acute (8) Multiple falls: Status: Acute (9) Metastatic renal cell carcinoma: With recent pathologic spiral fracture of humerus. He reports was following with oncologist Dr. Greene in [place], although has not seen her in a while with his recent hospitalizations and intermediate stays. Tells me he was diagnosed probably about 14 years ago with metastatic renal cancer, although he is somewhat hazy on the details. He tells me he has had nephrectomy, he thinks possibly bilateral. 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 He states more recently has been following up with Dr. 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 He has not so far yet followed up with Dr. Hart. He had been meaning to set an appointment for follow-up with all his providers after getting out from the intermediate. Status: Acute (10) Kidney transplanted: Continue tacrolimus for now, check level. Continue prednisone. Status: Acute (11) Long-term current use of tacrolimus: Check level, continue tacrolimus for now. Status: Acute (12) Chronic steroid use: Continue prednisone. Monitor for symptoms of adrenal insufficiency. Status: Acute Plan Acute bronchitis: Improving, cough is resolving. Possible atypical pneumonia, dry cough. No easily visible pneumonia on chest x-ray. COVID-19 panel, rapid flu negative. Low probability of PE. Immunosuppressed. For now continue ceftriaxone and added azithromycin for atypical coverage as discussed with him. Albuterol neb as needed. Antitussives as needed. Low-grade fever: Fever so far resolved. Diarrhea: Negative C. difficile, stool culture, ordered parasites A. fib: Continue metoprolol, held Eliquis Hypothyroidism: Mildly elevated TSH, free T4 WNL, continue levothyroxine, reassess as outpatient. HTN HLD LUTS Depression Attestations Medical Necessity Statement*: Continue admission for assessment and management of complicated urinary infection with acute encephalopathy, acute kidney injury in a gentleman with kidney transplant. Coding Level of Care Code Acute G[employer] Worker for Chg Fwd Diagnoses Acute kidney injury superimposed on CKD N17.9; N18.9 UTI (urinary tract infection) N39.0 Thrombocytopenia D69.6 Acute encephalopathy G93.40 Candidal intertrigo B37.2 Decubital ulcer L89.90 Generalized weakness R53.1 Multiple falls R29.6 Metastatic renal cell carcinoma C64.9 Kidney transplanted Z94.0 Long-term current use of tacrolimus Z79.899 Chronic steroid use
[2021-12-07] MEDS: potassium chloride ER 20 mEq Tablet PO (20:30)
[2021-12-08] VITALS (7 sets, daily range): BP systolic 138–162; BP diastolic 69–88; PULSE 66–82; RESP 16–24; TEMP 36.3–37.1; O2SAT 94–99
[2021-12-08] MEDS: heparin 5,000 unit/mL INJ 1 mL 5000 UNIT SUBCUT ×3 (04:36→20:57)
[2021-12-08 04:51] LABS: Basophils % 0.2 %; Eosinophils % 0.7 %; Hematocrit 25.3 % (42.0-52.0); Hemoglobin 7.8 g/dL (11.7-16.6); Lymphocytes # 1.3 10^3/uL (0.8-4.8); Lymphocytes % 29.4 %; Mean Corpuscular HGB Conc 30.8 g/dL (30.0-36.0); Mean Corpuscular Hemoglobin 33.1 pg (28.0-34.0); Mean Corpuscular Volume 107.2 fl (80-94); Mean Platelet Volume 11.9 fL (7.4-10.4); Monocytes # 0.4 10^3/uL (0.2-0.9); Monocytes % 8.4 %; Neutrophils # 2.66 10^3/uL (1.8-7.7); Neutrophils % 60.2 %; Nucleated Red Blood Cells % 0 %; Platelet Count 80 10^3/cmm (130-400); Red Blood Count 2.36 10^6/uL (4.1-5.3); Red Cell Distribution Width 15.1 % (12.1-15.1); White Blood Count 4.4 10^3/uL (4.0-10.0)
[2021-12-08 05:00] LABS: Alanine Aminotransferase 10 U/L (0-41); Alkaline Phosphatase 85 IU/L (40-130); Anion Gap 16.3 (5-19); Aspartate Amino Transferase 15 U/L (0-40); Blood Urea Nitrogen 30 mg/dL (8-23); Calcium 8.2 mg/dL (8.5-10.5); Carbon Dioxide 17 mmol/L (22-29); Chloride 113 mmol/L (98-107); Globulin 2.4 g/dL (1.3-4.6); Glucose 106 mg/dL (65-115); Osmolality Calculated 303 mOsm/kg (285-295); Potassium 3.3 mmol/L (3.5-5.1); Sodium 143 mmol/L (136-145); Total Bilirubin 0.5 mg/dL (0.15-1.2); Total Protein 5.4 g/dL (6.6-8.7)
[2021-12-08 05:02] LABS: Creatinine Clr Calc Pharmacy 56.6578
[2021-12-08] MEDS: metoprolol tartrate 50 mg Tablet 75 MG PO ×2 (09:07→17:10)
[2021-12-08] MEDS: atorvastatin 40 mg Tablet PO (09:08)
[2021-12-08] MEDS: famotidine 20 mg Tablet PO ×2 (09:08→17:12)
[2021-12-08] MEDS: tamsulosin 0.4 mg Capsule PO (09:08)
[2021-12-08] MEDS: predniSONE 5 mg Tablet PO (09:08)
[2021-12-08] MEDS: levothyroxine 50 mcg Tablet PO (09:08)
[2021-12-08] MEDS: nystatin cream 30 gm 1 APPLIC TOPICAL ×2 (09:09→17:12)
[2021-12-08] MEDS: tacrolimus 0.5 mg Capsule 2 MG PO ×2 (11:54→20:57)
[2021-12-08] MEDS: azithromycin 500 MG in sodium chloride 0.9% 250 ML 250 MG IV (12:00)
--- NOTE | 2021-12-08 12:18 | P.DS_ITS ---
Discharge Providers Date of Admission: 12/04/21 13:17 Date of Discharge: December 08, 2021 Attending Provider at Admission: Ralph Cortez Attending Provider at Discharge: Marcus Williamson MD Primary Care Provider: Jenni Mccullough DO Diagnoses at Discharge Discharge Diagnosis (1) Acute encephalopathy: Status: Acute (2) Acute kidney injury superimposed on CKD: Status: Acute (3) UTI (urinary tract infection): Status: Acute (4) Thrombocytopenia: Status: Acute (5) Candidal intertrigo: Status: Acute (6) Decubital ulcer: Status: Acute (7) Generalized weakness: Status: Acute (8) Multiple falls: Status: Acute (9) Metastatic renal cell carcinoma: Status: Acute (10) Kidney transplanted: Status: Acute (11) Long-term current use of tacrolimus: Status: Acute (12) Chronic steroid use: Status: Acute Reason for Visit Reason for Visit: FAILURE TO THRIVE Hospital Course Hospital Course 76-year-old gentleman with metastatic renal cell carcinoma, history of kidney transplant on tacrolimus, A. fib on anticoagulation, HTN, HLD, CKD, on chronic steroid, recently has been weak, with multiple recurrent falls, recently with pathologic spiral fracture of humerus after fall, after admission to the [facility], was transferred [facility] he underwent [facility], was discharged on 12/02, subsequently found down at home seems possibly after 3 days on the floor, with generalized weakness, states did not fall down, but was too weak to get up. Had a waxing mentation patient was admitted to [facility] for acute encephalopathy, treated for UTI, MRI of the brain showed right parietal lobe subacute infarct, VQ scan showed low probability PE. Also mental status likely due to UTI, right parietal lobe infarct. Mentation did improve, however at times continues to have waxing and waning mentation. Discharged on 3 remaining days of cefdinir. Patient was found to have a right parietal lobe subacute infarct, unable to tolerate anticoagulation given anemia 7.8 and thrombocytopenia 80, discharged on aspirin, statin. Discussed risks of holding anticoagulation, including but not limited to recurrent stroke, morbidity and mortality associated, voiced understanding, agreed to proceed. Patient was found to have CASPER on CKD, with history of renal transplant, improved with antibiotic therapy and IV fluids. Creatinine discharge 1.4. Patient has thrombocytopenia and anemia during his hospitalization, etiology unclear, likely secondary to prednisone and tacrolimus. However cannot rule out slow GI bleed, Protonix, Carafate with follow-up with general surgery as outpatient for consideration of EGD. In addition given he is a renal transplant patient, tacrolimus, will refer to hematology. Patient was advised to follow-up with his transplant team at [facility]. Generalized weakness, multiple falls, likely secondary to UTI, dehydration, received IV fluid, antibiotics, discharged to intermediate facility for PT OT . For his metastatic renal cell carcinoma, renal transplant, follow-up with Dr. Greene in [place] Acute bronchitis, received antibiotic therapy as inpatient, For his atrial fibrillation, intolerant to anticoagulation given hemoglobin as low as 7.8, no transfusion required, no bloody or black stools. Discharged on aspirin nonetheless, he does have a parietal lobe infarct, follow-up with ca rdiology. ?? Physical Exam Const: COMMON NORMALS: no acute distress and alert O RIENTATION/CONSCIOUSNESS: Yes awake, Yes oriented to person and Yes oriented to place; not oriented to time Resp: COMMON NORMALS: normal respiratory effort, No retractions, No use of accessory muscles and clear to auscultation bilaterally AUSCULTATION: clear to auscultation bilaterally Cardio: COMMON NORMALS: regular rate, regular rhythm, S1 normal heart sound present and S2 normal heart sound present RATE: regular rate RHYTHM: regular rhythm HEART SOUNDS: S1 normal heart sound present and S2 normal heart sound present GI: COMMON NORMALS: Normal to inspection, nondistended, normoactive bowel sounds present, Soft to palpation, non-tender and No hepatosplenomegaly present PALPATION: Yes Soft to palpation and Yes No hepatosplenomegaly present Extremity: COMMON NORMALS: no pedal edema Neuro: SENSORIUM/ORIENTATION: Yes alert, Yes oriented to person, Yes oriented to place and No oriented to time Discharge Data Studies Completed and Pending Completed Studies During Hospitalization Category Date Time Status CT head wo con* [id number] Urgent Cat Scan 12/04/21 11:[address] kidney stone [id number] Routine Cat Scan 12/04/21 16:55 Completed XR chest 1V portable [id number] Urgent Exams 12/04/21 11:06 Completed MR head wo con* [id number] Routine MRI 12/05/21 11:30 Completed NM pulmonary ventilation and perfusion [NM pul vent and Nuc Med 12/05/21 09:27 Completed perfus* [id number]] Routine CV carotid duplex BI* [id number] Routine Ultrasound 12/06/21 16:21 Completed Pending at discharge Category Date Time Status ANCA [Anti-Neutrophil Cytoplasmic AB] Stat Lab 12/05/21 10:40 Received Blood Culture Stat Lab 12/04/21 17:51 Results FK 506 (Tacrolimus) Routine Lab 12/05/21 10:40 Received OVA and Parasites, Conc and PE Routine Lab 12/05/21 00:16 Ordered Occult Blood Stool [Immunochemical Fecal OCB] Routine Lab 12/05/21 08:21 Uncollected Radiology Impressions Chest X-Ray 12/04/21 11:06 IMPRESSION: No acute findings. Head CT 12/04/21 11:17 IMPRESSION: 1. No acute intracranial hemorrhage or edema. 2. Atrophy with advanced small vessel ischemic disease. Very similar appearance as compared to 08/30/2021 Abdomen/Pelvis CT 12/04/21 16:55 IMPRESSION: 1. Right lower lobe soft tissue mass of unclear etiology follow-up exam is recommended 2. Bilateral lower lobe pleural effusions. 3. Status post right nephrectomy. 4. Atrophic left kidney . 5. Renal transplant in the right pelvis with a 5 mm caliceal stone Pulmonary Perfusion Imaging 12/05/21 09:27 IMPRESSION: Low probability pulmonary embolism. Head MRI 12/05/21 11:30 IMPRESSION: 1. Tiny right parietal lobe subacute infarction. 2. Mild sinusitis. Carotid Doppler Study 12/06/21 16:21 IMPRESSION: No carotid arterial stenosis. REFERENCES: SRU CRITERIA. The degree of internal carotid artery stenosis is based on criteria defined by the Society of Radiologists in Ultrasound (SRU). Normal is no stenosis. Mild is less than 50% stenosis. Moderate is 50-69% stenosis. Severe is greater than 69% stenosis to near occlusion. Near occlusion is a markedly narrowed lumen. Total occlusion is no detectable patent lumen. Laboratory Results WBC 4.4 10^3/uL (4.0-10.0) 12/08/21 04:26 RBC 2.36 10^6/uL (4.1-5.3) L 12/08/21 04:26 Hgb 7.8 g/dL (11.7-16.6) L 12/08/21 04:26 Hct 25.3 % (42.0-52.0) L 12/08/21 04:26 MCV 107.2 fl (80-94) H 12/08/21 04:26 MCH 33.1 pg (28.0-34.0) 12/08/21 04: MCHC 30.8 g/dL (30.0-36.0) 12/08/21 04: RDW 15.1 % (12.1-15.1) 12/08/21 04:26 Plt Count 80 10^3/cmm (130-400) L 12/08/21 04:26 MPV 11.9 fL (7.4-10.4) H 12/08/21 04:26 Neut % (Auto) 60.2 % 12/08/21 04: Lymph % (Auto) 29.4 % 12/08/21 04: [place] % (Auto) 8.4 % 12/08/21 04: Eos % (Auto) 0.7 % 12/08/21 04: Baso % (Auto) 0.2 % 12/08/21 04:26 Neut # (Auto) 2.66 10^3/uL (1.8-7.7) 12/08/21 04:26 Lymph # (Auto) 1.3 10^3/uL (0.8-4.8) 12/08/21 04:26 [place] # (Auto) 0.4 10^3/uL (0.2-0.9) 12/08/21 04:26 Eos # (Auto) 0.0 10^3/uL (0.0-0.8) 12/08/21 04:26 Baso # (Auto) 0.0 10^3/uL (0.0-0.1) 12/08/21 04:26 Nucleated RBC % (auto) 0 % 12/08/21 04: Nucleated RBCs # 0.0 /100WBC 12/08/21 04: Haptoglobin 114.0 mg/L (30-200) 12/05/21 05:10 D-Dimer 3.49 ug/mIFEU (0-0.59) H 12/04/21 11:52 Sodium 143 mmol/L (136-145) 12/08/21 04:26 Potassium 3.3 mmol/L (3.5-5.1) L 12/08/21 04:26 Chloride 113 mmol/L (98-107) H 12/08/21 04:26 Carbon Dioxide 17 mmol/L (22-29) L 12/08/21 04:26 Anion Gap 16.3 (5-19) 12/08/21 04:26 BUN 30 mg/dL (8-23) H 12/08/21 04:26 Creatinine 1.4 mg/dL (0.7-1.2) H 12/08/21 04:26 GFR Calculation Not Reportable 12/08/21 04:26 Glucose 106 mg/dL (65-115) 12/08/21 04:26 Calculated Osmolality 303 mOsm/kg (285-295) H 12/08/21 04:26 Uric Acid 10.0 mg/dL (3.4-7.0) H 12/05/21 05:10 Calcium 8.2 mg/dL (8.5-10.5) L 12/08/21 04:26 Total Bilirubin 0.5 mg/dL (0.15-1.2) 12/08/21 04:26 AST 15 U/L (0-40) 12/08/21 04:26 ALT 10 U/L (0-41) 12/08/21 04:26 Alkaline Phosphatase 85 IU/L (40-130) 12/08/21 04:26 Lactate Dehydrogenase 213 U/L (135-225) 12/05/21 05:10 Creatine Kinase 161 U/L (39-308) 12/04/21 11:52 Troponin T Baseline 55 ng/L (0-15) H 12/04/21 11:52 Troponin T 120 Minute 55.20 ng/L (0-15) H 12/04/21 14:00 Delta Troponin T 0.20 ABS# (0-10) 12/04/21 14:00 Troponin T Hi Sens 6Hr 67.33 ng/L (0-15) H 12/04/21 17:50 Troponin T Hi Sens 6Hr Delta 12.33 ng/L (0-12) H* 12/04/21 17:50 Total Protein 5.4 g/dL (6.6-8.7) L 12/08/21 04:26 Albumin 3.0 g/dL (3.5-5.2) L 12/08/21 04:26 Globulin 2.4 g/dL (1.3-4.6) 12/08/21 04:26 Lipase 12 U/L (13-60) L 12/04/21 11:52 TSH 4.33 uIU/mL (0.27-4.20) H 12/05/21 05:10 Free T4 1.18 ng/dL (0.82-1.77) 12/05/21 05:10 Urine Color Dark yellow (Yellow) 12/05/21 18:50 Urine Appearance Sl hazy (CLEAR) 12/05/21 18:50 Urine pH 5 (5-7) 12/05/21 18:50 Ur Specific [place] 1.020 (1.005-1.030) 12/05/21 18:50 Urine Protein 1+ (Negative) H 12/05/21 18:50 Urine Glucose (UA) Norm (Normal) 12/05/21 18:50 Urine Ketones Negative (Negative) 12/05/21 18:50 Urine Blood 3+ (Negative) H 12/05/21 18:50 Urine Nitrate Negative (Negative) 12/05/21 18:50 Urine Bilirubin Neg (Negative) 12/05/21 18:50 Urine Urobilinogen Norm mg/dL (Negative) 12/05/21 18:50 Ur Leukocyte Esterase 1+ (Negative) H 12/05/21 18:50 Urine RBC 0-4 /hpf (0-2) H 12/05/21 18:50 Urine WBC 15-25 /hpf (0-5) H 12/05/21 18:50 Ur Squamous Epith Cells 0-4 /hpf (0-5) H 12/05/21 18:50 Ur Transition Epith Cell 0-4 /hpf 12/05/21 18:50 Ur Renal Epithelial Cell 0 /hpf 12/05/21 18:50 Amorphous Sediment Not Reportable 12/05/21 18:50 Urine Bacteria 3+ /hpf (NONE) H 12/05/21 18:50 Urine Mucus 1+ /hpf 12/05/21 18:50 Ur Random Sodium 36 mmol/L 12/05/21 18:50 Urine Creatinine 205 mg/dL (39-259) 12/05/21 18:50 Nasal Influ A H1 2008 PCR Not detected (NOT DETECT) 12/04/21 13:21 Tacrolimus (FK 506) Cancelled 12/04/21 11:52 Coronavirus 229E (PCR) Not detected (NOT DETECT) 12/04/21 13:21 Influenza A (H1) PCR Not detected (NOT DETECT) 12/04/21 13:21 Influenza A (H3) PCR Not detected (NOT DETECT) 12/04/21 13:21 Influenza Type A Ag Cancelled 12/04/21 13:21 Influenza Type A (PCR) Not detected (NOT DETECT) 12/04/21 13:21 Influenza Type B Ag Cancelled 12/04/21 13:21 Influenza Type B (PCR) Not detected (NOT DETECT) 12/04/21 13:21 SARS-CoV-2 (PCR) Not detected (NOT DETECT) 12/04/21 13:21 Vitals Last Vital Signs Temp 98.7 F 12/08/21 07:35 Pulse 76 12/08/21 08:00 Resp 17 12/08/21 08:00 BP 162/76 12/08/21 07:35 Pulse Ox 99 12/08/21 08:00 Discharge Plan Discharge Patient Disposition: Home Condition: Stable Prescriptions: New cefdinir 300 mg capsule 300 mg PO BID 3 Days Qty: 6 0RF sucralfate [Carafate] 1 gram tablet 1 g PO BID 28 Days Qty: 56 0RF aspirin 81 mg capsule 81 mg PO DAILY 30 Days Qty: 30 0RF pantoprazole [Protonix] 40 mg tablet,delayed release (DR/EC) 40 mg PO BID 30 Days Qty: 60 0RF Continued loperamide 2 mg Capsule 2 mg PO Q4H PRN (Reason: Diarrhea) 0RF amlodipine 5 mg Tablet 5 mg PO DAILY 0RF tamsulosin 0.4 mg Capsule 0.4 mg PO DAILY 0RF mirtazapine 15 mg Tablet 15 mg PO DAILY 0RF cholecalciferol (vitamin D3) [Vitamin D3] 25 mcg (1,000 unit) Capsule 25 mcg PO DAILY 0RF atorvastatin 40 mg Tablet 40 mg PO DAILY 0RF prednisone 5 mg Tablet 5 mg PO DAILY 0RF levothyroxine 50 mcg Tablet 50 mcg PO DAILY 0RF losartan 100 mg Tablet 100 mg PO DAILY 0RF tacrolimus 1 mg Capsule 2 mg PO Q12H 0RF hydrocodone-acetaminophen 5-325 mg tablet 1 tab PO Q6H PRN (Reason: pain) Qty: 14 0RF Tylenol 325 mg Tablet 325 mg PO QID PRN (Reason: Pain) 0RF Tums 200 mg calcium (500 mg) Tablet,Chewable 200 mg PO BID PRN (Reason: Heartburn) 0RF metoprolol tartrate 50 mg tablet 75 mg PO BID 0RF levalbuterol tartrate 45 mcg/actuation Hfa Aerosol Inhaler 2 inh INHALATION Q6H 0RF Multi Vitamin 9 mg iron/15 mL Liquid 15 ml PO DAILY 0RF melatonin 10 mg Tablet 10 mg PO BEDTIME 0RF Held Eliquis 5 mg Tablet 5 mg PO BID 0RF Hold Instructions: Resume on 01/07/22. hold until you see primary care Discontinued famotidine 20 mg Tablet 20 mg PO BID 0RF Discharge Orders: Discharge Order (Routine); Ordered 12/08/21 Ordered By: Marcus Williamson Referrals: Stephon King MD [Physician] - 1 week (egd and colonoscopy) Jenni Mccullough DO [Primary Care Provider] - 1-3 days Di Sepulveda MD [Staff Physician] - 2 weeks (anemia, thrombocytopenia) Patient Instructions: Opioid Safety Activity Restrictions/Additional Instructions: - Needs to follow-up with transplant team at [place] within a month -Please hold Eliquis due to concerns for anemia and thrombocytopenia and bleeding -Follow-up for general surgery for EGD colonoscopy -For anemia, thrombocytopenia follow-up with [facility] -For your right parietal stroke, 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 -For anemia, recheck CBC in 48 hours -Follow-up with primary care - Discharge Attestations Time Spent in Discharge Care*: less than 30 min Quality Metrics Clinical Quality Measures [ Cerebrovascular Accident { Contraindication to Antithrombotic: None; antithrombotic prescribed; Contraindication to Anticoagulation: Drug intolerance; Contraindication to Statin: None; Statin prescribed;}] Coding Level of Care Code Acute Chg FW DC note Diagnoses Acute encephalopathy G93.40 Acute kidney injury superimposed on CKD N17.9; N18.9 UTI (urinary tract infection) N39.0 Thrombocytopenia D69.6 Candidal intertrigo B37.2 Decubital ulcer L89.90 Generalized weakness R53.1 Multiple falls R29.6 Metastatic renal cell carcinoma C64.9 Kidney transplanted Z94.0 Long-term current use of tacrolimus Z79.899 Chronic steroid use
[2021-12-08] MEDS: cefTRIAXone 1,000 MG in sodium chloride 0.9% (plus) 50 ML 100 MG IV (14:10)
--- NOTE | 2021-12-08 16:49 | P.PN_ITS ---
Subjective Subjective: Patient was seen this morning, he arouses easily, but wants to be left alone, he is alert to person, to place, not to time, I advised patient that he has been accepted at [facility], he wakes up and tells me that he wants to make sure that they will take care of him before he goes to the [facility], he has no complaints, no chest pain, no shortness of breath, has a one-to-one sitter Vitals/I&O/Wt Last Vital Signs Temp 97.6 F 12/08/21 16:00 Pulse 70 12/08/21 16:00 Resp 20 H 12/08/21 16:00 BP 157/82 12/08/21 16:00 Pulse Ox 99 12/08/21 16:00 12/08/21 12/08/21 12/08/21 06:59 14:59 22:59 Intake Total 120 / 120 Output Total 151 275 / 275 Balance -1 / 569 -155 / -155 Weight last 48 hrs Weight 99.881 kg Weight 99.745 kg Physical Exam Const: COMMON NORMALS: no acute distress and patient oriented x3 Resp: COMMON NORMALS: normal respiratory effort, No retractions, No use of accessory muscles and clear to auscultation bilaterally AUSCULTATION: clear to auscultation bilaterally Cardio: COMMON NORMALS: regular rate, regular rhythm, S1 normal heart sound present and S2 normal heart sound present RATE: regular rate RHYTHM: regular rhythm HEART SOUNDS: S1 normal heart sound present and S2 normal heart sound present GI: COMMON NORMALS: Normal to inspection, nondistended, normoactive bowel soun ds present, Soft to palpation and non-tender PALPATION: Yes Soft to palpation Extremity: COMMON NORMALS: no pedal edema Neuro: COMMON NORMALS: patient oriented x3 Psych: COMMON NORMALS: mental status grossly normal Data : 12/08/21 04:26 12/08/21 04:26 Micro: Microbiology 12/05/21 18:50 Urine Culture - Final Urine,Clean Catch A&P Assessment and plan (1) Acute encephalopathy: He had initially improved, today, currently he is alert to person, to place, not to time Mentation is improving Suspect delirium with waxing and waning mental status, secondary to acute metabo lic encephalopathy secondary to urinary tract infection. Improving bossible bronchitis, possible atypical pneumonia. 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 Mild sinusitis. Is intolerant to Eliquis due to anemia and thrombocytopenia. Start aspirin 81 mg continue statin. May benefit from better blood pressure control long-term. No carotid artery stenosis on carotid duplex. Pending tacrolimus level. Treat UTI, continue gentle fluid challenge, reassess renal function. With prolonged immobility, dehydration at risk for VTE, has transplanted kidney. Had dry cough. Abnormal D-dimer. VQ scan obtained, low probability of PE. Again could not reach her son by phone. Status: Acute (2) Acute kidney injury superimposed on CKD: Some improvement in renal function, although today creatinine stated 1.4 Nephrology assessment appreciated, with possibility of severe rejection in setting of complicated urinary tract infection. Continue treatment of infection. Gentle IV fluid challenge. Attempt to discontinue with improved oral intake. Tacrolimus level pending. No obstructive uropathy on CT. No obvious pyelonephritis. Hold losartan. Requested records from [facility] where he was recently admitted. Status: Acute (3) UTI (urinary tract infection): Klebsiella growing in urine. Continue ceftriaxone. Complicated UTI with acute encephalopathy on presentation and gentleman with immunosuppression, history of kidney transplantation. No obstructive uropathy or obvious pyelo on CT renal protocol. Status: Acute (4) Thrombocytopenia: Worsened thrombocytopenia. Follow-up Prograf level. Suspect secondary to infection. Eliquis held for now with platelets down to 62,000. For now prophylactic heparin. No suggestion of hemolysis. Status: Acute (5) Candidal intertrigo: Nystatin cream Status: Acute (6) Decubital ulcer: Possibly from prolonged immobilization. CK is normal. Reposition. Status: Acute (7) Generalized weakness: Mental status fluctuating. PT, OT assessment. He will need to return to SNF. Recently with generally weakness, failure to thrive, multiple falls. With metastatic renal cell carcinoma. Will need to resume follow-up with oncology. Details of his metastatic cancer is currently unknown, as well as prognosis or therapeutic plans and goals of care. He appears would want to continue treatment, although has not tolerated well, and his functional capacity has been declining. Status: Acute (8) Multiple falls: Status: Acute (9) Metastatic renal cell carcinoma: With recent pathologic spiral fracture of humerus. He reports was following with oncologist Dr. Greene in [place], although has not seen her in a while with his recent hospitalizations and [facility] stays. Tells me he was diagnosed probably about 14 years ago with metastatic renal cancer, although he is somewhat hazy on the details. He tells me he has had nephrectomy, he thinks possibly bilateral. 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 He states more recently has been following up with Dr. Hart, he states is a overhead worker at [facility], who had him treated with an anticancer medication with which she was also having persistent diarrhea, although says that this medication was discontinued recently, he is not sure why. He has not so far yet followed up with Dr. Hart. He had been meaning to set an appointment for follow-up with all his providers after getting out from the [facility]. Status: Acute (10) Kidney transplanted: Continue tacrolimus for now, check level. Continue prednisone. Status: Acute (11) Long-term current use of tacrolimus: Check level, continue tacrolimus for now. Status: Acute (12) Chronic steroid use: Continue prednisone. Monitor for symptoms of adrenal insufficiency. Status: Acute Plan Acute bronchitis: Improving, cough is resolving. Possible atypical pneumonia, dry cough. No easily visible pneumonia on chest x-ray. COVID-19 panel, rapid flu negative. Low probability of PE. Immunosuppressed. For now continue ceftriaxone and added azithromycin for atypical coverage as discussed with him. Albuterol neb as needed. Antitussives as needed. Low-grade fever: Fever so far resolved. Diarrhea: Negative C. difficile, stool culture, ordered parasites A. fib: Continue metoprolol, held Eliquis Hypothyroidism: Mildly elevated TSH, free T4 WNL, continue levothyroxine, reassess as outpatient. HTN HLD LUTS Depression Attestations Medical Necessity Statement*: Patient requires hospitalization for acute encephalopathy, UTI Coding Level of Care Code Acute Rn Ed for Chg Fwd Diagnoses Acute encephalopathy G93.40 Acute kidney injury superimposed on CKD N17.9; N18.9 UTI (urinary tract infection) N39.0 Thrombocytopenia D69.6 Candidal intertrigo B37.2 Decubital ulcer L89.90 Generalized weakness R53.1 Multiple falls R29.6 Metastatic renal cell carcinoma C64.9 Kidney transplanted Z94.0 Long-term current use of tacrolimus Z79.899 Chronic steroid use
[2021-12-08] MEDS: potassium chloride ER 20 mEq Tablet PO (17:12)
[2021-12-08] MEDS: aspirin 81 mg EC Tablet PO (17:12)
[2021-12-08] MEDS: acetaminophen 325 mg Tablet 650 MG PO (20:46)
[2021-12-09] VITALS (13 sets, daily range): BP systolic 128–152; BP diastolic 68–82; PULSE 65–81; RESP 14–18; TEMP 36.3–37; O2SAT 94–99
[2021-12-09] MEDS: heparin 5,000 unit/mL INJ 1 mL 5000 UNIT SUBCUT (05:21)
[2021-12-09 05:39] LABS: Basophils % 0.3 %; Eosinophils % 0.8 %; Hematocrit 25.3 % (42.0-52.0); Hemoglobin 7.5 g/dL (11.7-16.6); Lymphocytes # 1.2 10^3/uL (0.8-4.8); Lymphocytes % 30.8 %; Mean Corpuscular HGB Conc 29.6 g/dL (30.0-36.0); Mean Corpuscular Hemoglobin 32.8 pg (28.0-34.0); Mean Corpuscular Volume 110.5 fl (80-94); Mean Platelet Volume 12.1 fL (7.4-10.4); Monocytes # 0.4 10^3/uL (0.2-0.9); Monocytes % 9.7 %; Neutrophils # 2.28 10^3/uL (1.8-7.7); Neutrophils % 57.9 %; Nucleated Red Blood Cells % 0 %; Platelet Count 105 10^3/cmm (130-400); Red Blood Count 2.29 10^6/uL (4.1-5.3); Red Cell Distribution Width 15.2 % (12.1-15.1); White Blood Count 3.9 10^3/uL (4.0-10.0)
[2021-12-09 06:02] LABS: Alanine Aminotransferase 8 U/L (0-41); Albumin Level 2.9 g/dL (3.5-5.2); Alkaline Phosphatase 84 IU/L (40-130); Anion Gap 15.7 (5-19); Aspartate Amino Transferase 17 U/L (0-40); Blood Urea Nitrogen 23 mg/dL (8-23); Calcium 8.5 mg/dL (8.5-10.5); Carbon Dioxide 16 mmol/L (22-29); Chloride 115 mmol/L (98-107); Globulin 2.5 g/dL (1.3-4.6); Glucose 96 mg/dL (65-115); Magnesium 1.6 mg/dL (1.7-2.3); Osmolality Calculated 300 mOsm/kg (285-295); Phosphorus 3.4 mg/dL (2.5-4.5); Potassium 3.7 mmol/L (3.5-5.1); Sodium 143 mmol/L (136-145); Total Bilirubin 0.5 mg/dL (0.15-1.2); Total Protein 5.4 g/dL (6.6-8.7)
[2021-12-09 09:04] LABS: Ferritin 830 ng/mL (30-400); Iron 47 ug/dL (59-158); Percent Saturation 28.8 % (20-50); Total Iron Binding Capacity 163 mcg/dl; Unsaturated Iron Binding 116 ug/dL (112-347)
[2021-12-09 09:20] LABS: Vitamin B12 335 pg/mL (232-1245)
[2021-12-09 09:22] LABS: Folate Level 3.6 ng/mL (4.5-32.2)
--- NOTE | 2021-12-09 09:28 | PC.SOCIAL ---
IMM Update PG. 2 of IMM Updated and reviewed with patient, who verbalized understanding. Copy provided.
[2021-12-09 09:56] LABS: Erythrocyte Sedimentation Rate 7 mm/hr (0-10)
[2021-12-09 10:09] LABS: Cortisol Random 8.26 ug/dL (2.47-19.5)
[2021-12-09 10:11] LABS: LAB Peripheral Smear Sent for Review
[2021-12-09] MEDS: tacrolimus 0.5 mg Capsule 2 MG PO ×2 (11:04→20:56)
[2021-12-09] MEDS: levothyroxine 50 mcg Tablet PO (11:05)
[2021-12-09] MEDS: atorvastatin 40 mg Tablet PO (11:06)
[2021-12-09] MEDS: predniSONE 5 mg Tablet PO (11:06)
[2021-12-09] MEDS: tamsulosin 0.4 mg Capsule PO (11:06)
[2021-12-09] MEDS: metoprolol tartrate 50 mg Tablet 75 MG PO ×2 (11:06→17:06)
[2021-12-09] MEDS: sucralfate 1 gm Tablet PO ×3 (11:09→20:56)
[2021-12-09] MEDS: magnesium sulfate premix 4 GM/100 ML PREMIX IV (11:09)
[2021-12-09] MEDS: folic acid 1 mg Tablet PO ×2 (11:09→17:06)
[2021-12-09] MEDS: pantoprazole DR 40 mg Tablet PO ×2 (11:09→17:06)
--- NOTE | 2021-12-09 11:11 | CT_ITS ---
WS: [id number] CTA CHEST with ABDOMEN AND PELVIS TECHNIQUE: CTA of the chest with abdomen, and pelvis with coronal and sagittal reformatted images and additional MIP Images. CLINICAL INFORMATION: ams COMPARISON: CT renal stone December 04, 2021 DLP: 3250.[address] scans at [facility] use at least one of these dose optimization techniques: automated e xposure control; mA and/or kV adjustment per patient size (includes targeted exams where dose is matc hed to clinical indication); or iterative reconstruction. FINDINGS: Moderate bilateral pleural effusions RIGHT greater than LEFT with slight atelectasis in the lung base s. Proximal main pulmonary arteries are normal. Distal subsegmental pulmonary arteries not well visua lized. No evidence of pulmonary embolus. Small pericardial effusion. Marked masslike hilar lymphadenopathy RIGHT greater than LEFT. Suspected metastatic nodule in the LEFT upper lobe measuring 1.6 cm. Numerous additional metastatic nodules in both lungs. Additional smaller suspected metastatic nodules about the LEFT greater than RIGHT hilum. Masslike RIGHT hilar lymphadenopathy measures 3.5 x 2.2 cm and RIGHT infrahilar measuring 2.3 CM. Add itional RIGHT lower lobe nodule along the RIGHT heart border measuring 2.7 CM. Diffuse interstitial e germania throughout the RIGHT lung. Diffuse body wall anasarca. Mild diffuse fatty infiltration of the liver. Small esophageal hiatal hernia. Normal gallbladder. Nor mal portal vein and splenic vein. Fatty atrophy of the pancreas. Splenic artery calcification. Celiac and SMA appear patent. Normal spleen. Adrenal glands are normal. RIGHT nephrectomy. Chronic LEFT renal atrophy. Pelvic renal transplant in the RIGHT lower quadrant. Enlarged calcified prostate measuring 4.7 cm. Sigmoid diverticulosis. No evidence of acute diverticul itis. No free fluid in the abdomen or pelvis. Normal caliber abdominal aorta. Lytic lesion thoracic s pine suspicious for metastatic disease at T5. CT/CT angio chest w abd pel w con IMPRESSION: 1. No evidence of pulmonary embolus. 2. Moderate RIGHT greater than LEFT pleural effusions with atelectasis in the lung bases. Diffuse interstitial edema. 3. Masslike RIGHT greater than LEFT lymphadenopathy suspicious for metastatic disease versus primary bronchogenic carcinoma. 4. Multiple bilateral pulmonary nodules suspicious for metastatic disease desc ribed above. 5. Renal pelvic transplant in the RIGHT lower quadrant. Prior RIGHT nephrectom y. 6. No adenopathy in the abdomen or pelvis. 7. Enlarged prostate measuring 4.7 CM. Correlation PSA. 8. Lytic lesion posterior T5 vertebral body suspicious for metastatic disease. Notified Marcus Williamson MD at 12/09/2021 2:11 PM.
[2021-12-09 12:07] LABS: ANCA Screen NEGATIVE (NEGATIVE)
[2021-12-09] MEDS: iohexol 350 mg/mL 100 mL Btl IV (13:05)
[2021-12-09] MEDS: sodium chloride 0.9% 1,000 ML 75 ML IV (14:41)
[2021-12-09] MEDS: vancomycin 1,250 MG/250 ML PIGGYBACK 200 MG IV (14:42)
--- NOTE | 2021-12-09 14:52 | P.PN_ITS ---
Subjective Subjective: Patient was seen this morning, he is alert to person, not to place, not to time, he does follow commands, but he continues to confabulate, he tells me a story about 2 females in his rooms, harassing him, I reexamined patient earlier in the morning, he was sitting up in a chair, much more alert and awake, did follow commands, but continues to have episodes of confusion, he is seems like he is making up stories, that do not make sense to me -Given patient's persistent pancytopenia, confusion, I am concerned that his tacrolimus is playing a role -I spoke to patient's son who tells me that the tacrolimus has caused significant issues in the past -I try to reach patient's oncologist at [facility], she was not available, however his nurse Dr. Greene was able to answer my questions, it seems like patient has a history of metastatic renal cell carcinoma, to the lungs, to the lymph nodes, was on treatment last in August 2021, had but has not followed up since then -I spoke to on-call renal transplant physician at [facility], patient was on tacrolimus as per their records 1 g every 12 hours, here he is on 2 g every 12 hours, they were agreeable to consider transfer, but would prefer medicine service oncology service as a primary -I discussed my concerns with patient's tacrolimus resulting in bone marrow suppression continue confusion, however I would not want to adjust this med ication given patient's transplant history -I would prefer for patient to be transferred to [facility] where his transplant team is -I spoke to oncology service at [facility], I discussed my concerns, they felt that patient would be better served with on general medical service and medical oncology service -I spoke to general medical service at [facility], I discussed my concerns, they tell me that they would prefer for more of a complete work-up such as a lumbar puncture before they would consider taking them, they do also have a long wait list, I discussed my concerns, given patient's continued bone marrow suppression, and I would prefer for him to be where his transplant team is however they tell me that the have a long to wait less, and they at this time would not put him on a wait list until more of a complete work-up Vitals/I&O/Wt Last Vital Signs Temp 97.6 F 12/09/21 11:52 Pulse 70 12/09/21 11:52 Resp 18 12/09/21 11:52 BP 130/74 12/09/21 11:52 Pulse Ox 94 12/09/21 11:52 12/08/21 12/09/21 12/09/21 22:59 06:59 14:59 Intake Total 50 / 170 50 / 220 760 / 760 Output Total 100 / 375 Balance -50 / -205 50 / -155 760 / 760 Weight last 48 hrs Weight 99.382 kg Weight 99.881 kg Physical Exam Const: COMMON NORMALS: no acute distress EXAM LIMITATIONS: altered mental status OTHER: Alert to person, not to place, not to time HENMT: OTHER: Pupils equal round reactive to light Resp: COMMON NORMALS: normal respiratory effort, No retractions, No use of accessory muscles and clear to auscultation bilaterally AUSCULTATION: clear to auscultation bilaterally Cardio: COMMON NORMALS: regular rate, regular rhythm, S1 normal heart sound present and S2 normal heart sound present RATE: regular rate RHYTHM: regular rhythm HEART SOUNDS: S1 normal heart sound present and S2 normal heart sound present GI: COMMON NORMALS: Normal to inspection, nondistended, normoactive bowel sounds present, Soft to palpation and non-tender PALPATION: Yes Soft to palpation Extremity: COMMON NORMALS: no pedal edema Neuro: OTHER: I cannot discern any focal neurologic deficits, no facial droop no slurring of his words Data : 12/09/21 04:56 12/09/21 04:56 Micro: Microbiology 12/09/21 11:39 Blood Culture - Preliminary Blood SPECIMEN COLLECTED 12/09/21 11:37 Blood Culture - Preliminary Blood SPECIMEN COLLECTED A&P Assessment and plan (1) Acute encephalopathy: He had initially improved, today, currently he is alert to person, to place, not to time Mentation is improving Suspect delirium with waxing and waning mental status, secondary to acute metabolic encephalopathy secondary to urinary tract infection. Improving bossible bronchitis, possible atypical pneumonia. 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 Mild sinusitis. Is intolerant to Eliquis due to anemia and thrombocytopenia. Start aspirin 81 mg continue statin. May benefit from better blood pressure control long-term. No carotid artery stenosis on carotid duplex. Pending tacrolimus level. Treat UTI, continue gentle fluid challenge, reassess renal function. With prolonged immobility, dehydration at risk for VTE, has transplanted kidney. Had dry cough. Abnormal D-dimer. VQ scan obtained, low probability of PE. Again could not reach her son by phone. Status: Acute (2) Acute kidney injury superimposed on CKD: Some improvement in renal function, although today creatinine stated 1.4 Nephrology assessment appreciated, with possibility of severe rejection in setting of complicated urinary tract infection. Continue treatment of infection. Gentle IV fluid challenge. Attempt to discontinue with improved oral intake. Tacrolimus level pending. No obstructive uropathy on CT. No obvious pyelonephritis. Hold losartan. Requested records from [facility] where he was recently admitted. Status: Acute (3) UTI (urinary tract infection): Klebsiella growing in urine. Continue ceftriaxone. Complicated UTI with acute encephalopathy on presentation and gentleman with immunosuppression, history of kidney transplantation. No obstructive uropathy or obvious pyelo on CT renal protocol. Status: Acute (4) Thrombocytopenia: Worsened thrombocytopenia. Follow-up Prograf level. Suspect secondary to infection. Eliquis held for now with platelets down to 62,000. For now prophylactic heparin. No suggestion of hemolysis. Status: Acute (5) Candidal intertrigo: Nystatin cream Status: Acute (6) Decubital ulcer: Possibly from prolonged immobilization. CK is normal. Reposition. Status: Acute (7) Generalized weakness: Mental status fluctuating. PT, OT assessment. He will need to return to SNF. Recently with generally weakness, failure to thrive, multiple falls. With metastatic renal cell carcinoma. Will need to resume follow-up with oncology. Details of his metastatic cancer is currently unknown, as well as prognosis or therapeutic plans and goals of care. He appears would want to continue treatment, although has not tolerated well, and his functional capacity has been declining. Status: Acute (8) Multiple falls: Status: Acute (9) Metastatic renal cell carcinoma: With recent pathologic spiral fracture of humerus. He reports was following with oncologist Dr. Greene in [place], although has not seen her in a while with his recent hospitalizations and long term stays. Tells me he was diagnosed probably about 14 years ago with metastatic renal cancer, although he is somewhat hazy on the details. He tells me he has had nephrectomy, he thinks possibly bilateral. 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 He states more recently has been following up with Dr. Hart, he states is a business advisor at [facility], who had him treated with an anticancer medication with which she was also having persistent diarrhea, although says that this medication was discontinued recently, he is not sure why. He has not so far yet followed up with Dr. Hart. He had been meaning to set an appointment for follow-up with all his providers after getting out from the long term. Status: Acute (10) Kidney transplanted: Continue tacrolimus for now, check level. Continue prednisone. Status: Acute (11) Long-term current use of tacrolimus: Check level, continue tacrolimus for now. Status: Acute (12) Chronic steroid use: Continue prednisone. Monitor for symptoms of adrenal insufficiency. Status: Acute Plan Acute encephalopathy -According to patient's son patient is normally alert and oriented x3, it is quite independent, goes up to [facility] to see his transplant team, he also goes to [place] to see his oncologist -Patient's transplant team is at [facility], last follow-up was quite sometime ago, according to on-call renal transplant physician, patient should be on 1 g tacrolimus every 12 hours here he is on 2 g every 12 hours -Patient's oncologist Dr. Ramona Lee, last follow-up was back in August, he was on treatment for his renal cell carcinoma, metastatic to the chest, mediastinal lymph nodes, enlarged pulmonary nodules, however has not followed up since then, they are not sure if he still taking his cabozantinib -He has been treated for a UTI, with Rocephin, however his mentation has not improved -He does have a tiny parietal lobe subacute infarct -No fevers -Blood culture so far unremarkable -GI specimen so far unremarkable -Not requiring oxygen, not hemodynamically unstable Plan -Repeat CT chest abdomen pelvis -Will request a lumbar puncture, Eliquis has been held since 12/06, hold heparin, hold aspirin -We will start treatment for bacterial viral meningitis including vancomycin, Zosyn, acyclovir -We will order CSF studies -Order path studies -If no significant infectious or viral work-up is found, will discuss again with physicians at [facility] -I am still highly concerned that patient's symptomatology is likely limited to tacrolimus Pancytopenia, likely secondary to tacrolimus, work-up as above we will transfuse 1 unit PRBC Anemia, thrombocytopenia, history of atrial fibrillation, holding Eliquis as patient requires 1 unit PRBC, Diarrhea: Negative C. difficile, stool culture, ordered parasites A. fib: Continue metoprolol, held Eliquis Hypothyroidism: Mildly elevated TSH, free T4 WNL, continue levothyroxine, reassess as outpatient. 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
[2021-12-09] MEDS: sodium chloride 0.9% (100 ml) 100 ML 50 ML (16:41)
[2021-12-09] MEDS: acyclovir 1,000 MG in sodium chloride 0.9% (100 ml) 100 ML 120 MG IV (16:43)
[2021-12-09] MEDS: piperacillin-tazobactam 3.375 GM in sodium chloride 0.9% (plus) 50 ML IV (20:56)
[2021-12-10] VITALS (8 sets, daily range): BP systolic 127–173; BP diastolic 68–83; PULSE 59–80; RESP 12–17; TEMP 36.5–36.6; O2SAT 93–98
[2021-12-10] MEDS: acyclovir 1,000 MG in sodium chloride 0.9% (100 ml) 100 ML 120 MG IV ×3 (00:38→18:44)
[2021-12-10] MEDS: vancomycin 1,250 MG/250 ML PIGGYBACK 200 MG IV ×2 (02:53→13:53)
[2021-12-10 03:57] LABS: Basophils % 0.4 %; Eosinophils # 0.1 10^3/uL (0.0-0.8); Eosinophils % 1.1 %; Hematocrit 29.7 % (42.0-52.0); Hemoglobin 8.4 g/dL (11.7-16.6); Lymphocytes # 1.5 10^3/uL (0.8-4.8); Lymphocytes % 31.8 %; Mean Corpuscular HGB Conc 28.3 g/dL (30.0-36.0); Mean Corpuscular Hemoglobin 32.6 pg (28.0-34.0); Mean Corpuscular Volume 115.1 fl (80-94); Mean Platelet Volume 11.1 fL (7.4-10.4); Monocytes # 0.4 10^3/uL (0.2-0.9); Monocytes % 9.3 %; Neutrophils # 2.64 10^3/uL (1.8-7.7); Neutrophils % 56.1 %; Nucleated Red Blood Cells % 0.4 %; Platelet Count 136 10^3/cmm (130-400); Red Blood Count 2.58 10^6/uL (4.1-5.3); Red Cell Distribution Width 16.6 % (12.1-15.1); White Blood Count 4.7 10^3/uL (4.0-10.0)
[2021-12-10 04:04] LABS: INR 1.22 (0.8-1.2)
[2021-12-10 04:16] LABS: Alanine Aminotransferase 8 U/L (0-41); Albumin Level 2.9 g/dL (3.5-5.2); Alkaline Phosphatase 80 IU/L (40-130); Anion Gap 15.8 (5-19); Aspartate Amino Transferase 12 U/L (0-40); Blood Urea Nitrogen 18 mg/dL (8-23); C Reactive Protein 24.6 mg/L (0.0-4.9); Calcium 9.2 mg/dL (8.5-10.5); Carbon Dioxide 16 mmol/L (22-29); Chloride 114 mmol/L (98-107); Globulin 2.8 g/dL (1.3-4.6); Glucose 99 mg/dL (65-115); Magnesium 2.1 mg/dL (1.7-2.3); Osmolality Calculated 296 mOsm/kg (285-295); Phosphorus 3.4 mg/dL (2.5-4.5); Potassium 3.8 mmol/L (3.5-5.1); Sodium 142 mmol/L (136-145); Total Bilirubin 0.7 mg/dL (0.15-1.2); Total Protein 5.7 g/dL (6.6-8.7)
[2021-12-10 04:18] LABS: Slide Review Slide Review Perform
[2021-12-10 04:27] LABS: NT Pro B Type Natriuretic Pept 12421 pg/mL (0-450); Procalcitonin 0.51 ng/mL (0-0.5)
[2021-12-10 04:38] LABS: Creatine Phosphokinase 30 U/L (39-308)
[2021-12-10] MEDS: piperacillin-tazobactam 3.375 GM in sodium chloride 0.9% (plus) 50 ML IV ×2 (04:59→13:52)
--- NOTE | 2021-12-10 06:45 | PC.NURSE ---
Last night, patient had pulled out his IV while the unit of blood was running, at 1940, there was blood in the tubing but the bag was mostly empty.
--- NOTE | 2021-12-10 08:24 | CT_ITS ---
WS: [id number] CT HEAD TECHNIQUE: Noncontrast CT of the head obtained from the skullbase to the vertex. CLINICAL INFORMATION: ams COMPARISON: MRI November 15, [address] December 04, 2021 DLP: 1302.[address] scans at [facility] use at least one of these dose optimization techniques: automated e xposure control; mA and/or kV adjustment per patient size (includes targeted exams where dose is matc hed to clinical indication); or iterative reconstruction. FINDINGS: No evidence of intracranial hemorrhage or mass effect. Ventricular system and basal cisterns are stephenson nt. Moderate small vessel changes with moderate parenchymal volume loss. Chronic wedge-shaped infarct RIGHT cerebellum. No extra-axial fluid collections. No evidence of mass or mass effect. Mild mucosal thickening ethmoid air cells. Mastoid air cells are well aerated. CT/CT head wo con* [id number] IMPRESSION: 1. No evidence of intracranial hemorrhage or mass effect. 2. . Moderate small vessel changes with moderate parenchymal volume loss. 3. No acute intracranial findings and no significant changes from the recent e xams.
[2021-12-10] MEDS: FUROsemide 10 mg/mL SDV 4mL 40 MG IVP (08:38)
[2021-12-10] MEDS: predniSONE 5 mg Tablet PO (08:39)
[2021-12-10] MEDS: metoprolol tartrate 50 mg Tablet 75 MG PO (08:39)
[2021-12-10] MEDS: OLANZapine 5 mg TABLET PO ×2 (08:41→20:20)
[2021-12-10] MEDS: atorvastatin 40 mg Tablet PO (08:41)
[2021-12-10] MEDS: tamsulosin 0.4 mg Capsule PO (08:42)
[2021-12-10] MEDS: levothyroxine 50 mcg Tablet PO (08:42)
[2021-12-10] MEDS: pantoprazole DR 40 mg Tablet PO (08:42)
[2021-12-10] MEDS: folic acid 1 mg Tablet PO (08:42)
[2021-12-10] MEDS: tacrolimus 0.5 mg Capsule 2 MG PO ×3 (08:44→20:19)
[2021-12-10] MEDS: nystatin cream 30 gm 1 APPLIC TOPICAL ×2 (08:48→18:31)
--- NOTE | 2021-12-10 08:49 | P.PN_ITS ---
Vitals/I&O/Wt Last Vital Signs Temp 97.8 F 12/10/21 08:00 Pulse 80 12/10/21 08:00 Resp 14 12/10/21 08:00 BP 164/83 12/10/21 08:00 Pulse Ox 97 12/10/21 08:00 12/09/21 12/10/21 12/10/21 22:59 06:59 14:59 Intake Total 625 / 1385 420 / 1805 Output Total 625 / 625 Balance 625 / 1385 -205 / 1180 Weight last 48 hrs Weight 99.45 kg Weight 99.382 kg Physical Exam Const: COMMON NORMALS: no acute distress EXAM LIMITATIONS: altered mental status ORIENTATION/CONSCIOUSNESS: Yes awake, Yes oriented to person and Yes confused; not oriented to place and not oriented to time Eye: COMMON NORMALS: Equal, round and reactive pupils present and EOMs intact bilaterally PUPIL: Yes Equal, round and reactive pupils present Resp: COMMON NORMALS: normal respiratory effort, No retractions, No use of accessory muscles and clear to auscultation bilaterally AUSCULTATION: clear to auscultation bilaterally Cardio: COMMON NORMALS: regular rate, regular rhythm, S1 normal heart sound present and S2 normal heart sound present RATE: regular rate RHYTHM: regular rhythm HEART SOUNDS: S1 normal heart sound present and S2 normal heart sound present GI: COMMON NORMALS: Normal to inspection, nondistended, normoactive bowel sounds present, Soft to palpation and non-tender PALPATION: Yes Soft to palpation Extremity: COMMON NORMALS: no pedal edema Neuro: COMMON NORMALS: moves all extremities and no focal motor deficits SENSORIUM/ORIENTATION: Yes oriented to person, No oriented to place and No oriented to time OTHER: no facial droop, no slurring of words Data : 12/10/21 03:45 12/10/21 03:45 Micro: Microbiology 12/04/21 17:51 Blood Culture - Final Blood NO GROWTH AFTER 5 DAYS 12/04/21 17:50 Blood Culture - Final Blood NO GROWTH AFTER 5 DAYS 12/09/21 11:39 Blood Culture - Preliminary Blood SPECIMEN COLLECTED 12/09/21 11:37 Blood Culture - Preliminary Blood SPECIMEN COLLECTED A&P Assessment and plan (1) Acute encephalopathy: He had initially improved, today, currently he is alert to person, to place, not to time Mentation is improving Suspect delirium with waxing and waning mental status, secondary to acute metabolic encephalopathy secondary to urinary tract infection. Improving bossible bronchitis, possible atypical pneumonia. 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 Mild sinusitis. Is intolerant to Eliquis due to anemia and thrombocytopenia. Start aspirin 81 mg continue statin. May benefit from better blood pressure control long-term. No carotid artery stenosis on carotid duplex. Pending tacrolimus level. Treat UTI, continue gentle fluid challenge, reassess renal function. With prolonged immobility, dehydration at risk for VTE, has transplanted kidney. Had dry cough. Abnormal D-dimer. VQ scan obtained, low probability of PE. Again could not reach her son by phone. Status: Acute (2) Acute kidney injury superimposed on CKD: Some improvement in renal function, although today creatinine stated 1.4 Nephrology assessment appreciated, with possibility of severe rejection in se tting of complicated urinary tract infection. Continue treatment of infection. Gentle IV fluid challenge. Attempt to discontinue with improved oral intake. Tacrolimus level pending. No obstructive uropathy on CT. No obvious pyelonephritis. Hold losartan. Requested records from [facility] where he was recently admitted. Status: Acute (3) UTI (urinary tract infection): Klebsiella growing in urine. Continue ceftriaxone. Complicated UTI with acute encephalopathy on presentation and gentleman with immunosuppression, history of kidney transplantation. No obstructive uropathy or obvious pyelo on CT renal protocol. Status: Acute (4) Thrombocytopenia: Worsened thrombocytopenia. Follow-up Prograf level. Suspect secondary to infection. Eliquis held for now with platelets down to 62,000. For now prophylactic heparin. No suggestion of hemolysis. Status: Acute (5) Candidal intertrigo: Nystatin cream Status: Acute (6) Decubital ulcer: Possibly from prolonged immobilization. CK is normal. Reposition. Status: Acute (7) Generalized weakness: Mental status fluctuating. PT, OT assessment. He will need to return to SNF. Recently with generally weakness, failure to thrive, multiple falls. With metastatic renal cell carcinoma. Will need to resume follow-up with oncology. Details of his metastatic cancer is currently unknown, as well as prognosis or therapeutic plans and goals of care. He appears would want to continue treatment, although has not tolerated well, and his functional capacity has been declining. Status: Acute (8) Multiple falls: Status: Acute (9) Metastatic renal cell carcinoma: With recent pathologic spiral fracture of humerus. He reports was following with oncologist Dr. Greene in [place], although has not seen her in a while with his recent hospitalizations and senior living stays. Tells me he was diagnosed probably about 14 years ago with metastatic renal cancer, although he is somewhat hazy on the details. He tells me he has had nephrectomy, he thinks possibly bilateral. Subsequently had two kidney transp lants. He states more recently has been following up with Dr. 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, who had him treated with an anticancer medication with which she was also having persistent diarrhea, although says that this medication was discontinued recently, he is not sure why. He has not so far yet followed up with Dr. Hart. He had been meaning to set an appointment for [place] with all his providers after getting out from the senior living. Status: Acute (10) Kidney transplanted: Continue tacrolimus for now, check level. Continue prednisone. Status: Acute (11) Long-term current use of tacrolimus: Check level, continue tacrolimus for now. Status: Acute (12) Chronic steroid use: Continue prednisone. Monitor for symptoms of adrenal insufficiency. Status: Acute (13) Acute delirium: Status: Acute Plan Acute encephalopathy -According to patient's son patient is normally alert and oriented x3, it is quite independent, goes up to [facility] to see his transplant team, he also goes to [place] to see his oncologist -this is a drastic change in his mentation that has persisted -this morning having hyperactive delirium -Patient's transplant team is at [facility], last follow-up was quite sometime ago, according to on-call renal transplant physician, patient should be on 1 g tacrolimus every 12 hours here he is on 2 g every 12 hours -Patient's oncologist Dr. Ramona Lee, last follow-up was back in August, he was on treatment for his renal cell carcinoma, metastatic to the chest, mediastinal lymph nodes, enlarged pulmonary nodules, however has not followed up since then, they are not sure if he still taking his cabozantinib -He has been treated for a UTI, with Rocephin, however his mentation has not improved -He does have a tiny parietal lobe subacute infarct -No fevers -Blood culture so far unremarkable -GI specimen so far unremarkable -Not requiring oxygen, not hemodynamically unstable -1.? No evidence of pulmonary embolus. 2.? Moderate RIGHT greater than LEFT pleural effusions with atelectasis in the lung bases. Diffuse interstitial edema. 3.? Masslike RIGHT greater than LEFT lymphadenopathy suspicious for metastatic disease versus primary bronchogenic carcinoma. 4.? Multiple bilateral pulmonary nodules suspicious for metastatic disease described above. 5.? Renal pelvic transplant in the RIGHT lower quadrant. Prior RIGHT nephrectomy. 6.? No adenopathy in the abdomen or pelvis. 7.? Enlarged prostate measuring 4.7 CM. Correlation PSA. 8.? Lytic lesion posterior T5 vertebral body suspicious for metastatic disease. Metastatic soft tissue lesion involving the posterior elements at L3 with destructive changes involving the lamina and spinous process. Soft tissue lesion measures approximately 3.1 x 4.3 x 3.1 cm AP by transverse by craniocaudal. This extends into the paravertebral soft tissues. 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 -pocal 0.51, crp 24.6, sed 7 Plan -repeat blood culure, urine culture, sputum -repeat ct head today r/o hemorrhagic transformation from CVA -Order EEG -Will request a lumbar puncture, Eliquis has been held since 12/06, hold heparin, hold aspirin -on treatment for bacterial viral meningitis including vancomycin, Zosyn, acyclovir -We will order CSF studies -Order path studies -If no significant infectious or viral work-up is found, will discuss again with physicians at [facility] -I am still highly concerned that patient's symptomatology is likely limited to tacrolimus -zyprexa for agitation -neuro checks, aspiration precaution, nih stroke score -requiring one on one sitter hyperactive deleirum -zyprexa scheduled -ativan as needed -one on one sitter metastatic renal cell carcinoma folic acid defeciency on replacment Pancytopenia, improving, likely secondary to tacrolimus, work-up as above we will transfuse 1 unit PRBC Anemia, thrombocytopenia, history of atrial fibrillation, holding Eliquis as patient requires 1 unit PRBC, Diarrhea: Negative C. difficile, stool culture, ordered parasites A. fib: Continue metoprolol, held Eliquis Hypothyroidism: Mildly elevated TSH, free T4 WNL, continue levothyroxine, reass ess as outpatient. HTN HLD LUTS Depression Attestations Medical Necessity Statement*: patient requires hospitalization for alerted mental status Coding Level of Care Code Acute Retail Loss Prevention Investigator for Chg Fwd Diagnoses Acute encephalopathy G93.40 Acute kidney injury superimposed on CKD N17.9; N18.9 UTI (urinary tract infection) N39.0 Thrombocytopenia D69.6 Candidal intertrigo B37.2 Decubital ulcer L89.90 Generalized weakness R53.1 Multiple falls R29.6 Metastatic renal cell carcinoma C64.9 Kidney 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
--- NOTE | 2021-12-10 11:05 | FL_ITS ---
WS: [id number] LUMBAR PUNCTURE UNDER FLUOROSCOPY: OBTAIN CSF FOR ANALYSIS HISTORY: ams COMPARISON: Prior CT head reviewed from 12/10/[address] abdomen and pelvis 12/09/2021. FLUOROSCOPY TIME: 1min [id number] # of spot films: 1 Procedure, complications, and risk to patient's family. Consent was obtained. Recent laboratory work and medication are reviewed prior to procedure. Skin over the lumbar is cleansed with ChloraPrep and anesthetized with 1% buffered lidocaine. Access into the thecal sac is achieved. After the initial appearance of CSF the patient began to move and bl ood became apparent within the needle hub. Patient is very confused and was unable to remain still fo r this examination. Patient was also complaining of shortness of breath while in a prone position. Du e to the safety of the patient this study was terminated. No CSF was collected. FL/FL guided lumbarpunc dx* [id number] IMPRESSION: 1. Lumbar puncture terminated due to safety concerns for the patient. 2. Patient was confused and unable to remain still for this examination. After achieving access into the thecal sac the patient moved and blood became appare nt in the the needle hub. Study was terminated without obtaining CSF.
--- NOTE | 2021-12-10 11:31 | PC.OT ---
OT TREATMENT ATTEMPTED. PATIENT IS SLEEPING SOUNDLY. WILL ATTEMPT AGAIN IN P.M.
[2021-12-10] MEDS: sucralfate 1 gm Tablet PO ×2 (11:48→20:20)
--- NOTE | 2021-12-10 13:26 | PC.OT ---
OT TREATMENT ATTEMPTED AGAIN THIS P.M.; PATIENT CONTINUES TO SLEEP.
[2021-12-10] MEDS: acetaminophen 325 mg Tablet 650 MG PO ×2 (13:54→22:30)
[2021-12-10] MEDS: LORazepam 2 mg/mL INJ 1 mL 1 MG IVP ×2 (14:52→22:39)
[2021-12-11] VITALS (11 sets, daily range): BP systolic 124–155; BP diastolic 53–84; PULSE 62–86; RESP 14–18; TEMP 36.2–36.5; O2SAT 91–96
[2021-12-11] MEDS: acyclovir 1,000 MG in sodium chloride 0.9% (100 ml) 100 ML 120 MG IV ×3 (00:36→18:04)
[2021-12-11 01:20] LABS: Basophils % 0.2 %; Eosinophils # 0.1 10^3/uL (0.0-0.8); Hematocrit 26.5 % (42.0-52.0); Hemoglobin 8.3 g/dL (11.7-16.6); Lymphocytes # 1.6 10^3/uL (0.8-4.8); Lymphocytes % 33.2 %; Mean Corpuscular HGB Conc 31.3 g/dL (30.0-36.0); Mean Corpuscular Hemoglobin 32.2 pg (28.0-34.0); Mean Corpuscular Volume 102.7 fl (80-94); Mean Platelet Volume 11.1 fL (7.4-10.4); Monocytes # 0.4 10^3/uL (0.2-0.9); Monocytes % 8.9 %; Neutrophils # 2.71 10^3/uL (1.8-7.7); Neutrophils % 54.9 %; Nucleated Red Blood Cells % 0 %; Platelet Count 151 10^3/cmm (130-400); Red Blood Count 2.58 10^6/uL (4.1-5.3); Red Cell Distribution Width 16.1 % (12.1-15.1); White Blood Count 4.9 10^3/uL (4.0-10.0)
[2021-12-11 01:43] LABS: Alanine Aminotransferase 8 U/L (0-41); Albumin Level 2.8 g/dL (3.5-5.2); Alkaline Phosphatase 84 IU/L (40-130); Anion Gap 15.7 (5-19); Aspartate Amino Transferase 12 U/L (0-40); Blood Urea Nitrogen 16 mg/dL (8-23); C Reactive Protein 17.3 mg/L (0.0-4.9); Carbon Dioxide 16 mmol/L (22-29); Chloride 114 mmol/L (98-107); Globulin 2.5 g/dL (1.3-4.6); Glucose 108 mg/dL (65-115); Magnesium 1.7 mg/dL (1.7-2.3); Osmolality Calculated 296 mOsm/kg (285-295); Phosphorus 3.9 mg/dL (2.5-4.5); Potassium 3.7 mmol/L (3.5-5.1); Sodium 142 mmol/L (136-145); Total Bilirubin 0.7 mg/dL (0.15-1.2); Total Protein 5.3 g/dL (6.6-8.7); Vancomycin Trough 24.1 ug/mL (10-15)
[2021-12-11 02:17] LABS: Creatine Phosphokinase 19 U/L (39-308); NT Pro B Type Natriuretic Pept 8453 pg/mL (0-450); Procalcitonin 0.36 ng/mL (0-0.5)
[2021-12-11 02:38] LABS: Slide Review Slide Review Perform
--- NOTE | 2021-12-11 02:53 | PC.PHAR ---
Pharmacokinetic dosing service Date: 12/11/2021 Time: 299 Patient: Jing Coffey Floor: 278-1 Weight: 99.45 Kilograms Vancomycin single level analysis: Current dose being given: mg Current dosing interval: hrs Current infusion time (hrs): 1 Single level Trough Data: Trough level obtained: 24.1 mcg/ml Timing of trough - # of hrs before next dose: 0.75 Hrs Desired peak: 40 mcg/ml Desired trough: 15 mcg/ml Diagnosis: Relevant medical/social history: Cultures and sensitivities: Other labs: Estimated PK Parameters: New rate constant (alena): 0.041 hr-1 Half-life: 16.91 Hours Vd from levels: 89.51 Liters (0.7 L/kg) CLvanco=?? 3.670 L/hr Estimated New Dose and Interval Recommended dose: 2337.8 mg Recommended interval: 24.9 Hrs Patient response: Patient is responding to treatment [yes/no] wbc decreasing, S/SX reduced [yes/no] Renal function is stable/unstable Recommendations: Give Vancomycin 1250 mg q 18 hrs. Infuse over 1.5 hrs Expected Cpeak: 26.0 mcg/mL Expected Ctrough: 13.2 mcg/mL AUC 0-24 /JUSTIN Data: JUSTIN 0.5 mcg/mL:?? AUC/JUSTIN:? 908.3 JUSTIN 1.0 mcg/mL:?? AUC/JUSTIN:? 454.1 Recommended labs and intervals: Measure Bun and Scr 3 times/week. Renal dosing of other antibiotics (review renal dosing of other medications and list guidelines here): Thank you for the consult, will continue to follow. Signature: Cecily Harris [facility]
[2021-12-11] MEDS: sodium chloride 0.9% 1,000 ML 50 ML IV (02:54)
[2021-12-11] MEDS: piperacillin-tazobactam 3.375 GM in sodium chloride 0.9% (plus) 50 ML IV ×3 (03:10→20:57)
[2021-12-11] MEDS: levothyroxine 50 mcg Tablet PO (08:40)
[2021-12-11] MEDS: tamsulosin 0.4 mg Capsule PO (08:40)
[2021-12-11] MEDS: tacrolimus 0.5 mg Capsule 2 MG PO ×2 (08:40→23:30)
[2021-12-11] MEDS: pantoprazole DR 40 mg Tablet PO ×2 (08:42→17:25)
[2021-12-11] MEDS: predniSONE 5 mg Tablet PO (08:42)
[2021-12-11] MEDS: metoprolol tartrate 50 mg Tablet 75 MG PO ×2 (08:42→17:25)
[2021-12-11] MEDS: atorvastatin 40 mg Tablet PO (08:42)
[2021-12-11] MEDS: folic acid 1 mg Tablet PO ×2 (08:42→17:25)
[2021-12-11] MEDS: OLANZapine 5 mg TABLET PO ×2 (08:42→23:30)
[2021-12-11] MEDS: nystatin cream 30 gm 1 APPLIC TOPICAL ×2 (08:43→17:26)
[2021-12-11] MEDS: vancomycin 1,250 MG/250 ML PIGGYBACK 200 MG IV (08:50)
--- NOTE | 2021-12-11 09:02 | PC.SOCIAL ---
IMM Update Pg. 2 of IMM updated. Initialed, dated, and timed. Copy provided at bedside.
--- NOTE | 2021-12-11 09:23 | FL_ITS ---
WS: [id number] LUMBAR PUNCTURE UNDER FLUOROSCOPY: OBTAIN CSF FOR ANALYSIS HISTORY: under conscious sedation, mental status changes. COMPARISON: CT head 12/10/[address] 12/04/2021 FLUOROSCOPY TIME: 2.5 # of spot films: 1 Procedure, complications, and risk and benefits explained to the patient. Consent was obtained. Recen t laboratory work and medication are reviewed prior to procedure. Skin over the lumbar is cleansed with ChloraPrep and anesthetized with 1% buffered lidocaine. Access into the thecal sac is achieved but no CSF is obtained. Very tiny amount of flash CSF is identified. Was unable to obtain CSF. Similar findings have been on the study the prior day. Patient may be due t o dehydrated. FL/FL guided lumbarpunc dx* [id number] IMPRESSION: Unsuccessful lumbar puncture attempt. The needle was in the thecal sac. There i s a small flash of CSF replaced quickly replaced by a small amount of blood. At tempt terminated after several attempts at achieving adequate CSF. Notified Marcus Williamson MD at 12/11/2021 11:49 AM.
--- NOTE | 2021-12-11 11:02 | P.PN_ITS ---
Subjective Subjective: Yesterday afternoon, patient had an attempted lumbar puncture, however he was complaining of shortness of breath on his belly, and he had moved, will attempt to perform a lumbar puncture this morning, with the help of anesthesia, currently he is sitting up in a chair, alert to person, not to place , not to time, he is not requiring oxygen, afebrile overnight, he does answer questions, but remains confused, one-on-one sitter and nursing staff tell me that he remained confused throughout the night, he did take his morning medications, but last night he spit out his medications, his only complaint is leg pain Vitals/I&O/Wt Last Vital Signs Temp 97.1 F L 12/11/21 08:00 Pulse 83 12/11/21 08:00 Resp 14 12/11/21 08:00 BP 155/73 12/11/21 08:00 Pulse Ox 96 12/11/21 08:00 12/10/21 12/11/21 12/11/21 22:59 06:59 14:59 Intake Total 1410.000 / 1845.000 120 / 1965.000 300 / 300 Output Total 326 / 776 Balance 1084.000 / 1069.000 120 / 1189.000 300 / 300 Weight last 48 hrs Weight 96.933 kg Weight 99.45 kg Physical Exam Const: COMMON NORMALS: no acute distress EXAM LIMITATIONS: altered mental status ORIENTATION/CONSCIOUSNESS: Yes awake, Yes oriented to person and Yes confused; not oriented to place and not oriented to time Resp: COMMON NORMALS: normal respiratory effort, No retractions, No use of accessory muscles and clear to auscultation bilaterally AUSCULTATION: clear to auscultation bilaterally Cardio: COMMON NORMALS: regular rate, regular rhythm, S1 normal heart sound present and S2 normal heart sound present RATE: regular rate RHYTHM: regular rhythm HEART SOUNDS: S1 normal heart sound present and S2 normal heart sound present GI: COMMON NORMALS: Normal to inspection, nondistended, normoactive bowel sounds present, Soft to palpation and non-tender PALPATION: Yes Soft to palpation Extremity: COMMON NORMALS: no pedal edema Neuro: COMMON NORMALS: moves all extremities SENSORIUM/ORIENTATION: Yes oriented to person, No oriented to place and No oriented to time Data : 12/11/21 01:10 12/11/21 01:10 Micro: Microbiology 12/10/21 07:15 Urine Culture - Preliminary Urine,Clean Catch 12/09/21 11:39 Blood Culture - Preliminary Blood NEGATIVE TO DATE 12/09/21 11:37 Blood Culture - Preliminary Blood NEGATIVE TO DATE 12/10/21 09:21 Occult Blood (FIT) - Final Stool A&P Assessment and plan (1) Acute encephalopathy: He had initially improved, today, currently he is alert to person, to place, not to time Mentation is improving Suspect delirium with waxing and waning mental status, secondary to acute metabolic encephalopathy secondary to urinary tract infection. Improving bossible bronchitis, possible atypical pneumonia. 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 Mild sinusitis. Is intolerant to Eliquis due to anemia and thrombocytopenia. Start aspirin 81 mg continue statin. May benefit from better blood pressure control long-term. No carotid artery stenosis on carotid duplex. Pending tacrolimus level. Treat UTI, continue gentle fluid challenge, reassess renal function. With prolonged immobility, dehydration at risk for VTE, has transplanted kidney. Had dry cough. Abnormal D-dimer. VQ scan obtained, low probability of PE. Again could not reach her son by phone. Status: Acute (2) Acute kidney injury superimposed on CKD: Some improvement in renal function, although today creatinine stated 1.4 Nephrology assessment appreciated, with possibility of severe rejection in setting of complicated urinary tract infection. Continue treatment of infection. Gentle IV fluid challenge. Attempt to discontinue with improved oral intake. Tacrolimus level pending. No obstructive uropathy on CT. No obvious pyelonephritis. Hold losartan. Requested records from [facility] where he was recently admitted. Status: Acute (3) UTI (urinary tract infection): Klebsiella growing in urine. Continue ceftriaxone. Complicated UTI with acute encephalopathy on presentation and gentleman with immunosuppression, history of kidney transplantation. No obstructive uropathy or obvious pyelo on CT renal protocol. Status: Acute (4) Thrombocytopenia: Worsened thrombocytopenia. Follow-up Prograf level. Suspect secondary to infection. Eliquis held for now with platelets down to 62,000. For now prophylactic heparin. No suggestion of hemolysis. Status: Acute (5) Candidal intertrigo: Nystatin cream Status: Acute (6) Decubital ulcer: Possibly from prolonged immobilization. CK is normal. Reposition. Status: Acute (7) Generalized weakness: Mental status fluctuating. PT, OT assessment. He will need to return to SNF. Recently with generally weakness, failure to thrive, multiple falls. With metastatic renal cell carcinoma. Will need to resume follow-up with oncology. Details of his metastatic cancer is currently unknown, as well as prognosis or therapeutic plans and goals of care. He appears would want to continue treatment, although has not tolerated well, and his functional capacity has been declining. Status: Acute (8) Multiple falls: Status: Acute (9) Metastatic renal cell carcinoma: With recent pathologic spiral fracture of humerus. He reports was following with oncologist Dr. Greene in [place], although has not seen her in a while with his recent hospitalizations and intermediate stays. Tells me he was diagnosed probably about 14 years ago with metastatic renal cancer, although he is somewhat hazy on the details. He tells me he has had nephrectomy, he thinks possibly bilateral. 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 He states more recently has been following up with Dr. 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, who had him treated with an anticancer medication with which she was also having persistent diarrhea, although says that this medication was discontinued recently, he is not sure why. He has not so far yet followed up with Dr. Hart. He had been meaning to set an appointment for follow-up with all his providers after getting out from the intermediate. Status: Acute (10) Kidney transplanted: Continue tacrolimus for now, check level. Continue prednisone. Status: Acute (11) Long-term current use of tacrolimus: Check level, continue tacrolimus for now. Status: Acute (12) Chronic steroid use: Continue prednisone. Monitor for symptoms of adrenal insufficiency. Status: Acute (13) Acute delirium: Status: Acute Plan Acute encephalopathy -According to patient's son patient is normally alert and oriented x3, it is quite independent, goes up to [facility] to see his transplant team, he also goes to [place] to see his oncologist -this is a drastic change in his mentation that has persisted -this morning having hyperactive delirium -Patient's transplant team is at [facility], last follow-up was quite sometime ago, according to on-call renal transplant physician, patient should be on 1 g tacrolimus every 12 hours here he is on 2 g every 12 hours -Patient's oncologist Dr. Ramona Lee, last follow-up was back in August, he was on treatment for his renal cell carcinoma, metastatic to the chest, mediastinal lymph nodes, enlarged pulmonary nodules, however has not followed up since then, they are not sure if he still taking his cabozantinib -He has been treated for a UTI, with Rocephin, however his mentation has not improved -He does have a tiny parietal lobe subacute infarct -No fevers -Blood culture so far unremarkable -GI specimen so far unremarkable -Not requiring oxygen, not hemodynamically unstable -1.? No evidence of pulmonary embolus. 2.? Moderate RIGHT greater than LEFT pleural effusions with atelectasis in the lung bases. Diffuse interstitial edema. 3.? Masslike RIGHT greater than LEFT lymphadenopathy suspicious for metastatic disease versus primary bronchogenic carcinoma. 4.? Multiple bilateral pulmonary nodules suspicious for metastatic disease described above. 5.? Renal pelvic transplant in the RIGHT lower quadrant. Prior RIGHT nephrectomy. 6.? No adenopathy in the abdomen or pelvis. 7.? Enlarged prostate measuring 4.7 CM. Correlation PSA. 8.? Lytic lesion posterior T5 vertebral body suspicious for metastatic disease. Metastatic soft tissue lesion involving the posterior elements at L3 with lili tructive changes involving the lamina and spinous process. Soft tissue lesion measures approximately 3.1 x 4.3 x 3.1 cm AP by transverse by craniocaudal. This extends into the paravertebral soft tissues. 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 Repeat CT of the head 12/10/2021 1.? No evidence of intracranial hemorrhage or mass effect. 2.? . Moderate small vessel changes with moderate parenchymal volume loss. 3.? No acute intracranial findings and no significant changes from the recent exams. -pocal 0.51, crp 24.6, sed 7 Plan -repeat blood culure, urine culture, sputum -Order EEG -Will request a lumbar puncture, Eliquis has been held since 12/06, hold heparin, hold aspirin -on treatment for bacterial viral meningitis including vancomycin, Zosyn, acyclovir -We will order CSF studies -If no significant infectious or viral work-up is found, will discuss again with physicians at [facility] -I am still highly concerned that patient's symptomatology is likely limited to tacrolimus -zyprexa for agitation -neuro checks, aspiration precaution, nih stroke score -requiring one on one sitter hyperactive deleirum -zyprexa scheduled -ativan as needed -one on one sitter metastatic renal cell carcinoma folic acid defeciency on replacment Pancytopenia, improving, likely secondary to tacrolimus, work-up as above we will transfuse 1 unit PRBC Anemia, thrombocytopenia, history of atrial fibrillation, holding Eliquis as patient requires 1 unit PRBC, Diarrhea: Negative C. difficile, stool culture, ordered parasites A. fib: Continue metoprolol, held Eliquis Hypothyroidism: Mildly elevated TSH, free T4 WNL, continue levothyroxine, reassess as outpatient. HTN HLD LUTS Depression Attestations Medical Necessity Statement*: Patient requires hospitalization for altered mental status Coding Level of Care Code Acute Retail Loss Prevention Investigator for Chg Fwd Diagnoses Acute encephalopathy G93.40 Acute kidney injury superimposed on CKD N17.9; N18.9 UTI (urinary tract infection) N39.0 Thrombocytopenia D69.6 Candidal intertrigo B37.2 Decubital ulcer L89.90 Generalized weakness R53.1 Multiple falls R29.6 Metastatic renal cell carcinoma C64.9 Kidney 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
[2021-12-11] MEDS: FUROsemide 10 mg/mL SDV 4mL 40 MG IVP (11:45)
--- NOTE | 2021-12-11 14:31 | PC.NURSE ---
NIHSS assessment pt has altered metal status currently and was unable to comprehend/follow command of instruction for the motor arm and leg assessment this AM.
[2021-12-11 15:36] LABS: HSV 2 IGG Type Specific AB <0.90 index
[2021-12-11 15:47] LABS: Cytomegalovirus Antibody (IGG) >10.00 U/mL; Cytomegalovirus Antibody (IGM) <30.00 AU/mL
--- NOTE | 2021-12-11 15:50 | PC.OT ---
OT tx attempted at this time. Pt had medical procedure earlier today and is now sleeping soundly. Nursing requests therapy not wake him. OT tx to be withheld for now and will be attempted again in the morning.
[2021-12-11] MEDS: sucralfate 1 gm Tablet PO (17:25)
[2021-12-11 17:41] LABS: EBV IGG TEST >750.00 U/mL; EBV IGM TEST <36.00 U/mL; EBV Nuclear AG >600.00 U/mL
[2021-12-12] MEDS: vancomycin 1,250 MG/250 ML PIGGYBACK 200 MG IV ×2 (01:44→19:57)
[2021-12-12] MEDS: sodium chloride 0.9% 1,000 ML 50 ML IV ×2 (01:44→22:53)
[2021-12-12] MEDS: acyclovir 1,000 MG in sodium chloride 0.9% (100 ml) 100 ML 120 MG IV ×3 (03:19→19:19)
[2021-12-12] MEDS: LORazepam 2 mg/mL INJ 1 mL 1 MG IVP ×2 (03:26→22:50)
[2021-12-12 03:42] VITALS: BP 151/81; PULSE 86; RESP 18; TEMP 36.8; O2SAT 96
[2021-12-12 04:40] LABS: Basophils % 0.3 %; Eosinophils # 0.2 10^3/uL (0.0-0.8); Eosinophils % 3.5 %; Hematocrit 25.6 % (42.0-52.0); Hemoglobin 8.2 g/dL (11.7-16.6); Lymphocytes % 33.7 %; Mean Corpuscular Hemoglobin 33.3 pg (28.0-34.0); Mean Corpuscular Volume 104.1 fl (80-94); Mean Platelet Volume 10.8 fL (7.4-10.4); Monocytes # 0.6 10^3/uL (0.2-0.9); Monocytes % 9.8 %; Neutrophils # 3.06 10^3/uL (1.8-7.7); Neutrophils % 51.7 %; Nucleated Red Blood Cells % 0.3 %; Platelet Count 165 10^3/cmm (130-400); Red Blood Count 2.46 10^6/uL (4.1-5.3); White Blood Count 5.9 10^3/uL (4.0-10.0)
[2021-12-12] MEDS: piperacillin-tazobactam 3.375 GM in sodium chloride 0.9% (plus) 50 ML IV ×3 (04:51→20:44)
[2021-12-12 05:00] LABS: Alanine Aminotransferase 7 U/L (0-41); Albumin Level 2.5 g/dL (3.5-5.2); Alkaline Phosphatase 77 IU/L (40-130); Anion Gap 20.3 (5-19); Aspartate Amino Transferase 12 U/L (0-40); Blood Urea Nitrogen 16 mg/dL (8-23); Calcium 8.7 mg/dL (8.5-10.5); Carbon Dioxide 14 mmol/L (22-29); Chloride 113 mmol/L (98-107); Globulin 2.9 g/dL (1.3-4.6); Glucose 82 mg/dL (65-115); Magnesium 1.3 mg/dL (1.7-2.3); Osmolality Calculated 298 mOsm/kg (285-295); Phosphorus 4.6 mg/dL (2.5-4.5); Potassium 3.3 mmol/L (3.5-5.1); Sodium 144 mmol/L (136-145); Total Bilirubin 0.7 mg/dL (0.15-1.2); Total Protein 5.4 g/dL (6.6-8.7)
[2021-12-12 05:07] LABS: NT Pro B Type Natriuretic Pept 4790 pg/mL (0-450); Procalcitonin 0.27 ng/mL (0-0.5)
[2021-12-12 05:18] LABS: Creatine Phosphokinase 17 U/L (39-308)
[2021-12-12 07:45] VITALS: BP 143/70; PULSE 94; O2SAT 95
[2021-12-12] MEDS: magnesium sulfate premix 4 GM/100 ML PREMIX IV (08:22)
[2021-12-12 08:50] VITALS: PULSE 91; RESP 18; O2SAT 98
--- NOTE | 2021-12-12 08:50 | PC.OT ---
OT tx attempted. Pt sleeping soundly and unable to wake to participate in tx at this time. Will attempt again later today if possible.
--- NOTE | 2021-12-12 09:25 | PM.PN ---
Subjective Subjective: Patient was seen this morning, he is alert to person, not to place, not to time, he is quite drowsy, overnight he received Ativan for episodes of confusion, remains confused this morning, no facial droop no slurring of his words, he does awaken to sternal rub, but falls back asleep -Patient received a trial of Keppra to see if that would improve his mentation however it has not improved his mentation -Patient had multiple trials of lumbar puncture under fluoroscopy, however we were unable to get a CSF sample -Continues to be confused, afebrile, normotensive, Vitals/I&O/Wt Last Vital Signs Temp 98.2 F 12/12/21 03:42 Pulse 91 12/12/21 08:50 Resp 18 12/12/21 08:50 BP 143/70 12/12/21 07:45 Pulse Ox 98 12/12/21 08:50 12/11/21 12/12/21 12/12/21 22:59 06:59 14:59 Intake Total 1170 / 1700 420 / 2120 50 / 50 Balance 1170 / 1700 420 / 2120 50 / 50 Weight last 48 hrs Weight 96.933 kg Physical Exam Const: COMMON NORMALS: no acute distress EXAM LIMITATIONS: altered mental status ORIENTATION/CONSCIOUSNESS: Yes awake and Yes confused; not oriented to person, not oriented to place and not oriented to time Resp: COMMON NORMALS: normal respiratory effort, No retractions, No use of accessory muscles and clear to auscultation bilaterally AUSCULTATION: clear to auscultation bilaterally Cardio: COMMON NORMALS: regular rate, regular rhythm, S1 normal heart sound present and S2 normal heart sound present RATE: regular rate RHYTHM: regular rhythm HEART SOUNDS: S1 normal heart sound present and S2 normal heart sound present GI: COMMON NORMALS: Normal to inspection, nondistended, normoactive bowel sounds present, Soft to palpation and non-tender PALPATION: Yes Soft to palpation Extremity: COMMON NORMALS: no pedal edema Neuro: SENSORIUM/ORIENTATION: No oriented to person, No oriented to place and No oriented to time Data : 12/12/21 04:28 12/12/21 04:28 Micro: Microbiology 12/10/21 07:15 Urine Culture - Final Urine,Clean Catch A&P Assessment and plan (1) Acute encephalopathy: He had initially improved, today, currently he is alert to person, to place, not to time Mentation is improving Suspect delirium with waxing and waning mental status, secondary to acute metabolic encephalopathy secondary to urinary tract infection. Improving bossible bronchitis, possible atypical pneumonia. 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 Mild sinusitis. Is intolerant to Eliquis due to anemia and thrombocytopenia. Start aspirin 81 mg continue statin. May benefit from better blood pressure control long-term. No carotid artery stenosis on carotid duplex. Pending tacrolimus level. Treat UTI, continue gentle fluid challenge, reassess renal function. With prolonged immobility, dehydration at risk for VTE, has transplanted kidney. Had dry cough. Abnormal D-dimer. VQ scan obtained, low probability of PE. Again could not reach her son by phone. Status: Acute (2) Acute kidney injury superimposed on CKD: Some improvement in renal function, although today creatinine stated 1.4 Nephrology assessment appreciated, with possibility of severe rejection in setting of complicated urinary tract infection. Continue treatment of infection. Gentle IV fluid challenge. Attempt to discontinue with improved oral intake. Tacrolimus level pending. No obstructive uropathy on CT. No obvious pyelonephritis. Hold losartan. Requested records from [facility] where he was recently admitted. Status: Acute (3) UTI (urinary tract infection): Klebsiella growing in urine. Continue ceftriaxone. Complicated UTI with acute encephalopathy on presentation and gentleman with immunosuppression, history of kidney transplantation. No obstructive uropathy or obvious pyelo on CT renal protocol. Status: Acute (4) Thrombocytopenia: Worsened thrombocytopenia. Follow-up Prograf level. Suspect secondary to infection. Eliquis held for now with platelets down to 62,000. For now prophylactic heparin. No suggestion of hemolysis. Status: Acute (5) Candidal intertrigo: Nystatin cream Status: Acute (6) Decubital ulcer: Possibly from prolonged immobilization. CK is normal. Reposition. Status: Acute (7) Generalized weakness: Mental status fluctuating. PT, OT assessment. He will need to return to SNF. Recently with generally weakness, failure to thrive, multiple falls. With metastatic renal cell carcinoma. Will need to resume follow-up with oncology. Details of his metastatic cancer is currently unknown, as well as prognosis or therapeutic plans and goals of care. He appears would want to continue treatment, although has not tolerated well, and his functional capacity has been declining. Status: Acute (8) Multiple falls: Status: Acute (9) Metastatic renal cell carcinoma: With recent pathologic spiral fracture of humerus. He reports was following with oncologist Dr. Greene in [place], although has not seen her in a while with his recent hospitalizations and shelter stays. Tells me he was diagnosed probably about 14 years ago with metastatic renal cancer, although he is somewhat hazy on the details. He tells me he has had nephrectomy, he thinks possibly bilateral. 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 He states more recently has been following up with Dr. 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 He has not so far yet followed up with Dr. Hart. He had been meaning to set an appointment for follow-up with all his providers after getting out from the shelter. Status: Acute (10) Kidney transplanted: Continue tacrolimus for now, check level. Continue prednisone. Status: Acute (11) Long-term current use of tacrolimus: Check level, continue tacrolimus for now. Status: Acute (12) Chronic steroid use: Continue prednisone. Monitor for symptoms of adrenal insufficiency. Status: Acute (13) Acute delirium: Status: Acute Plan Acute encephalopathy -According to patient's son patient is normally alert and oriented x3, it is quite independent, goes up to [facility] to see his transplant team, he also goes to [place] to see his oncologist -this is a drastic change in his mentation that has persisted -this morning having hyperactive delirium -Patient's transplant team is at [facility], last follow-up was quite sometime ago, according to on-call renal transplant physician, patient should be on 1 g tacrolimus every 12 hours here he is on 2 g every 12 hours -Patient's oncologist Dr. Ramona Lee, last follow-up was back in August, he was on treatment for his renal cell carcinoma, metastatic to the chest, mediastinal lymph nodes, enlarged pulmonary nodules, however has not followed up since then, they are not sure if he still taking his cabozantinib -He has been treated for a UTI, with Rocephin, however his mentation has not improved -He does have a tiny parietal lobe subacute infarct -No fevers -Blood culture so far unremarkable -GI specimen so far unremarkable -Not requiring oxygen, not hemodynamically unstable -1.? No evidence of pulmonary embolus. 2.? Moderate RIGHT greater than LEFT pleural effusions with atelectasis in the lung bases. Diffuse interstitial edema. 3.? Masslike RIGHT greater than LEFT lymphadenopathy suspicious for metastatic disease versus primary bronchogenic carcinoma. 4.? Multiple bilateral pulmonary nodules suspicious for metastatic disease described above. 5.? Renal pelvic transplant in the RIGHT lower quadrant. Prior RIGHT nephrectomy. 6.? No adenopathy in the abdomen or pelvis. 7.? Enlarged prostate measuring 4.7 CM. Correlation PSA. 8.? Lytic lesion posterior T5 vertebral body suspicious for metastatic disease. Metastatic soft tissue lesion involving the posterior elements at L3 with destructive changes involving the lamina and spinous process. Soft tissue lesion measures approximately 3.1 x 4.3 x 3.1 cm AP by transverse by craniocaudal. This extends into the paravertebral soft tissues. 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 Repeat CT of the head 12/10/2021 1.? No evidence of intracranial hemorrhage or mass effect. 2.? . Moderate small vessel changes with moderate parenchymal volume loss. 3.? No acute intracranial findings and no significant changes from the recent exams. -pocal 0.51, crp 24.6, sed 7 Plan -repeat blood culure, urine culture, sputum so far negative -EEG ordered, cannot be done till Wednesday -Multiple trials for lumbar puncture, unable to obtain CSF sample -We will discuss with IR if they are willing to try it again for the third time, will hold Eliquis until then -on treatment for bacterial viral meningitis including vancomycin, Zosyn, acyclovir, mentation has not improved -We will discussed with [facility], transfer for neurology, continuous EEG monitoring, need for neurology evaluation, and transplant physician evaluation -I am still highly concerned that patient's symptomatology is likely limited to tacrolimus -zyprexa for agitation -neuro checks, aspiration precaution, nih stroke score -requiring one on one sitter History of CVA, back in 2019, status post tPA, MRI showing chronic microvascular infarcts Brain: A tiny subacute infarction is present in the right parietal lobe. Mild atrophy and mild to moderate white matter chronic microvascular changes are noted. No hemorrhage or midline shift. Cerebral ventricles: Normal. No ventriculomegaly. Bones/joints: Unremarkable. Paranasal sinuses: Mild left ethmoid sinusitis is noted. Mastoid air cells: Normal as visualized. No mastoid effusion. Orbital cavities: Unremarkable. Soft tissues: Unremarkable. -Now has a tiny right parietal lobe infarct hyperactive deleirum -zyprexa scheduled -ativan as needed -one on one sitter metastatic renal cell carcinoma -underwent right nephrectomy -Underwent renal transplant in 2008 at [facility], his niece was a donor as far as September 2021 -Sees Dr. Galo at [facility] -P T3a renal cell carcinoma, metastatic pulmonary nodules in 2019, mediastinal adenopathy, sees Dr. Greene -Suffered a right humeral fracture, pathologic, sees Dr. Dinh, medically managed, initially had a shelter because he cannot take care of himself, now back at home -Has not taking cobozantiib -Is now on Prograf, there is some confusion about the dosing, here he is taking 2 g every 12 hours, as per orders he should be on 1 g every 12 hours folic acid defeciency on replacment Pancytopenia, improving, likely secondary to tacrolimus, work-up as above we will transfuse 1 unit PRBC Anemia, thrombocytopenia, history of atrial fibrillation, holding Eliquis as patient requires 1 unit PRBC, Diarrhea: Negative C. difficile, stool culture, ordered parasites A. fib: Continue metoprolol, held Eliquis Hypothyroidism: Mildly elevated TSH, free T4 WNL, continue levothyroxine, reassess as outpatient. HTN HLD LUTS Depression Attestations Medical Necessity Statement*: Patient requires hospitalization for altered mental status Coding Level of Care Code Acute Processing Inspector for Chg Fwd Diagnoses Acute encephalopathy G93.40 Acute kidney injury superimposed on CKD N17.9; N18.9 UTI (urinary tract infection) N39.0 Thrombocytopenia D69.6 Candidal intertrigo B37.2 Decubital ulcer L89.90 Generalized weakness R53.1 Multiple falls R29.6 Metastatic renal cell carcinoma C64.9 Kidney 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
[2021-12-12] MEDS: tamsulosin 0.4 mg Capsule PO (10:28)
[2021-12-12] MEDS: metoprolol tartrate 50 mg Tablet 75 MG PO ×2 (10:28→17:25)
[2021-12-12] MEDS: predniSONE 5 mg Tablet PO (10:29)
[2021-12-12] MEDS: tacrolimus 0.5 mg Capsule 2 MG PO ×2 (10:29→20:09)
[2021-12-12] MEDS: nystatin cream 30 gm 1 APPLIC TOPICAL ×2 (10:39→17:35)
[2021-12-12] MEDS: levothyroxine 50 mcg Tablet PO (10:40)
--- NOTE | 2021-12-12 11:23 | P.TS_ITS ---
Transfer Summary Providers Date of Admission: 12/04/21 13:17 Date of Discharge/Transfer: 12/12/21 Attending Provider at Admission: Ralph Cortez Attending Provider at Transfer: Marcus Williamson MD Primary Care Provider: Jenni Mccullough DO Transfer Plans: Anticipated date of transfer: 12/12/21 . Diagnoses at Discharge Discharge Diagnosis (1) Acute encephalopathy: Status: Acute (2) Acute kidney injury superimposed on CKD: Status: Acute (3) UTI (urinary tract infection): Status: Acute (4) Thrombocytopenia: Status: Acute (5) Candidal intertrigo: Status: Acute (6) Decubital ulcer: Status: Acute (7) Generalized weakness: Status: Acute (8) Multiple falls: Status: Acute (9) Metastatic renal cell carcinoma: Status: Acute (10) Kidney transplanted: Status: Acute (11) Long-term current use of tacrolimus: Status: Acute (12) Chronic steroid use: Status: Acute (13) Acute delirium: Status: Acute Reason for Visit Reason for Visit FAILURE TO THRIVE Hospital Course Hospital Course 76-year-old gentleman with metastatic renal cell carcinoma, history of kidney transplant on tacrolimus, A. fib on anticoagulation, HTN, HLD, CKD, on chronic steroid, recently has been weak, with multiple recurrent falls, recently with pathologic spiral fracture of humerus after fall, after admission to the hospital, appears [facility], was transferred to [facility] nursing [facility] where he underwent rehabilitation, was discharged on 12/02, subsequently found down at home seems possibly after 3 days on the floor, with generalized weakness, states did not fall down, but was too weak to get up. Acute encephalopathy -According to patient's son patient is normally alert and oriented x3, it is quite independent, goes up to [facility] to see his transplant team, he also goes to [place] to see his oncologist -this is a drastic change in his mentation that has persisted -this morning having hyperactive delirium -Patient's transplant team is at [facility], last follow-up was quite sometime ago, according to on-call renal transplant physician, patient should be on 1 g tacrolimus every 12 hours here he is on 2 g every 12 hours -Patient's oncologist Dr. Ramona Lee, last follow-up was back in August, he was on treatment for his renal cell carcinoma, metastatic to the chest, mediastinal lymph nodes, enlarged pulmonary nodules, however has not followed up since then, they are not sure if he still taking his cabozantinib -He has been treated for a UTI, with Rocephin, however his mentation has not improved -He does have a tiny parietal lobe subacute infarct -No fevers -Blood culture so far unremarkable -GI specimen so far unremarkable -Not requiring oxygen, not hemodynamically unstable -1.? No evidence of pulmonary embolus. 2.? Moderate RIGHT greater than LEFT pleural effusions with atelectasis in the lung bases. Diffuse interstitial edema. 3.? Masslike RIGHT greater than LEFT lymphadenopathy suspicious for metastatic disease versus primary bronchogenic carcinoma. 4.? Multiple bilateral pulmonary nodules suspicious for metastatic disease described above. 5.? Renal pelvic transplant in the RIGHT lower quadrant. Prior RIGHT nephrectomy. 6.? No adenopathy in the abdomen or pelvis. 7.? Enlarged prostate measuring 4.7 CM. Correlation PSA. 8.? Lytic lesion posterior T5 vertebral body suspicious for metastatic disease. Metastatic soft tissue lesion involving the posterior elements at L3 with destructive changes involving the lamina and spinous process. Soft tissue lesion measures approximately 3.1 x 4.3 x 3.1 cm AP by transverse by craniocaudal. This extends into the paravertebral soft tissues. 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 Repeat CT of the head 12/10/2021 1.? No evidence of intracranial hemorrhage or mass effect. 2.? . Moderate small vessel changes with moderate parenchymal volume loss. 3.? No acute intracranial findings and no significant changes from the recent exams. -pocal 0.51, crp 24.6, sed 7 -Patient had 2 attempts at lumbar puncture, last attempt was under fluoroscopy, done by radiology, was found to be too stenotic, and accessible level had metastatic lesions, cannot do cervical lumbar puncture at our hospital which is a consideration at [facility] -repeat blood culure, urine culture, sputum so far negative -EEG ordered, cannot be done till Wednesday -Multiple trials for lumbar puncture, unable to obtain CSF sample -Continue to hold Eliquis, if consideration of cervical lumbar puncture at higher level center -on treatment for bacterial viral meningitis including vancomycin, Zosyn, acyclovir, mentation has not improved -We will discussed with [facility], transfer for neurology, continuous EEG monitoring, need for neurology evaluation, and transplant physician evaluation -I am still highly concerned that patient's symptomatology is likely limited to tacrolimus, level was 12.3, drawn on 12/05/2021. At 10:40 AM, however I am not sure with the timing frame between when the lab was drawn versus when he took his last dose of tacrolimus -zyprexa for agitation -neuro checks, aspiration precaution, nih stroke score -requiring one on one sitter History of CVA, back in 2019, status post tPA, MRI showing chronic microvascular infarcts Brain: A tiny subacute infarction is present in the right parietal lobe. Mild atrophy and mild to moderate white matter chronic microvascular changes are noted. No hemorrhage or midline shift. Cerebral ventricles: Normal. No ventriculomegaly. Bones/joints: Unremarkable. Paranasal sinuses: Mild left ethmoid sinusitis is noted. Mastoid air cells: Normal as visualized. No mastoid effusion. Orbital cavities: Unremarkable. Soft tissues: Unremarkable. -Now has a tiny right parietal lobe infarct hyperactive deleirum -This morning is alert to person, not to place, not to time, very drowsy, o vernight he had episodes of agitation, requiring Ativan -zyprexa scheduled -ativan as needed -one on one sitter Folic acid deficiency, elevated MCV, receiving folic acid metastatic renal cell carcinoma -underwent right nephrectomy -Underwent renal transplant in 2008 at [facility], his niece was a donor as far as September 2021 -Sees Dr. Galo at [facility] -P T3a renal cell carcinoma, metastatic pulmonary nodules in 2019, mediastinal adenopathy, sees Dr. Greene -Suffered a right humeral fracture, pathologic, sees Dr. Dinh, medically managed, initially had a fpc because he cannot take care of himself, now back at home -Has not taking cobozantiib -Is now on Prograf, there is some confusion about the dosing, here he is taking 2 g every 12 hours, as per orders he should be on 1 g every 12 hours folic acid defeciency on replacment Pancytopenia, improving, likely secondary to tacrolimus, status post 1 unit PRBC Anemia, thrombocytopenia, history of atrial fibrillation, holding Eliquis, status post 1 unit PRBC Diarrhea: Negative C. difficile, stool culture, ordered parasites A. fib: Continue metoprolol, held Eliquis Hypothyroidism: Mildly elevated TSH, free T4 WNL, continue levothyroxine, reassess as outpatient. HTN HLD LUTS Depression Patient was found to have CASPER on CKD, with history of renal transplant, improved with antibiotic therapy and IV fluids. Creatinine discharge 1.2 Patient has thrombocytopenia and anemia during his hospitalization, etiology unclear, likely secondary to prednisone and tacrolimus. However cannot rule out slow GI bleed, Protonix, Carafate with follow-up with general surgery as outpatient for consideration of EGD. In addition given he is a renal transplant patient, tacrolimus, Generalized weakness, multiple falls, likely secondary to UTI, dehydration, receiving IV fluids, antibiotics Acute bronchitis, received antibiotic therapy as inpatient, For his atrial fibrillation, intolerant to anticoagulation given hemoglobin as low as 7.8, 1 unit PRBC, no bloody or black stools. Discharged on aspirin nonetheless, he does have a parietal lobe infarct, follow-up with cardiology. Replace magnesium, potassium, phosphorus this morning Physical exam Alert to person, not to place, not to time, delirious, waxing waning mentation Cardiovascular S1, S2, regular rate rhythm Lungs clear to auscultation bilaterally Abdomen, soft, nondistended, nontender Extremity no edema ?? TS Data Studies Completed and Pending Pending at discharge Category Date Time Status EEG electroencephalogram Routine Exams 12/10/21 08:27 Ordered Aspergillus AG,EIA,Serum Stat Lab 12/10/21 11:38 Received Aspergillus DNA Qualitativ PCR Routine Lab 12/10/21 09:00 Ordered Blood Culture Stat Lab 12/09/21 11:39 Results CSF Analysis + Cell Count Stat Lab 12/09/21 11:05 Ordered CSF Culture & Gram Stain Stat Lab 12/09/21 11:05 Ordered CSF Specific [place] Routine Lab 12/09/21 11:05 Ordered Complete Blood Count w/Auto AM LABS Lab 12/13/21 04:00 Ordered Complete Blood Count w/Auto AM LABS Lab 12/14/21 04:00 Ordered Comprehensive Metabolic Panel AM LABS Lab 12/13/21 04:00 Ordered Comprehensive Metabolic Panel AM LABS Lab 12/14/21 04:00 Ordered Glucose CSF Routine Lab 12/09/21 11:05 Ordered Herpes Simplex Virus DNA Stat Lab 12/10/21 08:55 Ordered Lymes Disease Antibodies CSF Stat Lab 12/09/21 11:05 Ordered Magnesium AM LABS Lab 12/13/21 04:00 Ordered Magnesium AM LABS Lab 12/14/21 04:00 Ordered Miscellaneous Test Routine Lab 12/10/21 09:00 Ordered OVA and Parasites, Conc and PE Routine Lab 12/05/21 09:17 Received Oligoclonal Bands IGG, CSF Stat Lab 12/09/21 11:05 Ordered Phosphorus AM LABS Lab 12/13/21 04:00 Ordered Phosphorus AM LABS Lab 12/14/21 04:00 Ordered Sputum Culture and Gram Stain Stat Lab 12/09/21 11:05 Uncollected [place] Enceph.Virus IFA CSF Stat Lab 12/09/21 11:05 Ordered Total Protein CSF Routine Lab 12/09/21 11:05 Ordered VDRL on CSF Stat Lab 12/09/21 11:05 Ordered Vancomycin Trough Timed Lab 12/13/21 13:30 Ordered West Nile Virus AB Panel,CSF Stat Lab 12/09/21 11:05 Ordered Labs from last 24 hours 12/12/21 12/12/21 12/12/21 04:28 04:28 04:28 WBC 5.9 RBC 2.46 L Hgb 8.2 L Hct 25.6 L MCV 104.1 H MCH 33.3 MCHC 32.0 RDW 16.0 H Plt Count 165 MPV 10.8 H Neut % (Auto) 51.7 Lymph % (Auto) 33.7 [place] % (Auto) 9.8 Eos % (Auto) 3.5 Baso % (Auto) 0.3 Neut # (Auto) 3.06 Lymph # (Auto) 2.0 [place] # (Auto) 0.6 Eos # (Auto) 0.2 Baso # (Auto) 0.0 Nucleated RBC % (auto) 0.3 Nucleated RBCs # 0.0 Sodium 144 Potassium 3.3 L Chloride 113 H Carbon Dioxide 14 L Anion Gap 20.3 H BUN 16 Creatinine 1.2 GFR Calculation Not Reportable Glucose 82 Calculated Osmolality 298 H Calcium 8.7 Phosphorus 4.6 H Magnesium 1.3 L Total Bilirubin 0.7 AST 12 ALT 7 Alkaline Phosphatase 77 Creatine Kinase 17 L C-Reactive Protein 13.0 H NT-Pro-B Natriuret Pep 4790 H Total Protein 5.4 L Albumin 2.5 L Globulin 2.9 Procalcitonin 0.27 CMV IgG Ab CMV IgM Ab EBV IgG Ab EBV IgM Ab EBV Nuclear Antigen EBV Interpretation HSV I IgG Ab HSV II IgG 12/10/21 12/10/21 12/10/21 11:38 11:38 11:38 WBC RBC Hgb Hct MCV MCH MCHC RDW Plt Count MPV Neut % (Auto) Lymph % (Auto) [place] % (Auto) Eos % (Auto) Baso % (Auto) Neut # (Auto) Lymph # (Auto) [place] # (Auto) Eos # (Auto) Baso # (Auto) Nucleated RBC % (auto) Nucleated RBCs # Sodium Potassium Chloride Carbon Dioxide Anion Gap BUN Creatinine GFR Calculation Glucose Calculated Osmolality Calcium Phosphorus Magnesium Total Bilirubin AST ALT Alkaline Phosphatase Creatine Kinase C-Reactive Protein NT-Pro-B Natriuret Pep Total Protein Albumin Globulin Procalcitonin CMV IgG Ab >10.00 H CMV IgM Ab <30.00 EBV IgG Ab >750.00 H EBV IgM Ab <36.00 EBV Nuclear Antigen >600.00 H EBV Interpretation See note HSV I IgG Ab 18.60 H HSV II IgG <0.90 Completed Studies During Hospitalization Category Date Time Status CT angio chest w abd pel w con Routine Cat Scan 12/09/21 11:[address] head wo con* [id number] Stat Cat Scan 12/10/21 08:[address] head wo con* [id number] Urgent Cat Scan 12/04/21 11:[address] kidney stone [id number] Routine Cat Scan 12/04/21 16:55 Completed FL guided lumbarpunc dx* [id number] Routine Exams 12/10/21 11:05 Completed Fluoro guided lumbar puncture [FL guided lumbarpunc dx* Exams 12/11/21 09:23 Completed [id number]] Routine XR chest 1V portable [id number] Urgent Exams 12/04/21 11:06 Completed MR head wo con* [id number] Routine MRI 12/05/21 11:30 Completed NM pulmonary ventilation and perfusion [NM pul vent and Nuc Med 12/05/21 09:27 Completed perfus* [id number]] Routine CV carotid duplex BI* [id number] Routine Ultrasound 12/06/21 16:21 Completed Laboratory Last Values WBC 5.9 10^3/uL (4.0-10.0) 12/12/21 04:28 RBC 2.46 10^6/uL (4.1-5.3) L 12/12/21 04:28 Hgb 8.2 g/dL (11.7-16.6) L 12/12/21 04:28 Hct 25.6 % (42.0-52.0) L 12/12/21 04:28 MCV 104.1 fl (80-94) H 12/12/21 04:28 MCH 33.3 pg (28.0-34.0) 12/12/21 04: MCHC 32.0 g/dL (30.0-36.0) 12/12/21 04: RDW 16.0 % (12.1-15.1) H 12/12/21 04:28 Plt Count 165 10^3/cmm (130-400) 12/12/21 04:28 MPV 10.8 fL (7.4-10.4) H 12/12/21 04:28 Neut % (Auto) 51.7 % 12/12/21 04: Lymph % (Auto) 33.7 % 12/12/21 04: [place] % (Auto) 9.8 % 12/12/21 04: Eos % (Auto) 3.5 % 12/12/21 04:28 Baso % (Auto) 0.3 % 12/12/21 04:28 Neut # (Auto) 3.06 10^3/uL (1.8-7.7) 12/12/21 04:28 Lymph # (Auto) 2.0 10^3/uL (0.8-4.8) 12/12/21 04:28 [place] # (Auto) 0.6 10^3/uL (0.2-0.9) 12/12/21 04: Eos # (Auto) 0.2 10^3/uL (0.0-0.8) 12/12/21 04:28 Baso # (Auto) 0.0 10^3/uL (0.0-0.1) 12/12/21 04:28 Nucleated RBC % (auto) 0.3 % 12/12/21 04:28 Nucleated RBCs # 0.0 /100WBC 12/12/21 04: ESR 7 mm/hr (0-10) 12/09/21 08:16 Haptoglobin 114.0 mg/L (30-200) 12/05/21 05:10 PT 15.70 SECONDS (12.1-14.9) H 12/10/21 03:45 INR 1.22 (0.8-1.2) H 12/10/21 03:45 D-Dimer 3.49 ug/mIFEU (0-0.59) H 12/04/21 11:52 Sodium 144 mmol/L (136-145) 12/12/21 04:28 Potassium 3.3 mmol/L (3.5-5.1) L 12/12/21 04:28 Chloride 113 mmol/L (98-107) H 12/12/21 04:28 Carbon Dioxide 14 mmol/L (22-29) L 12/12/21 04:28 Anion Gap 20.3 (5-19) H 12/12/21 04:28 BUN 16 mg/dL (8-23) 12/12/21 04:28 Creatinine 1.2 mg/dL (0.7-1.2) 12/12/21 04:28 GFR Calculation Not Reportable 12/12/21 04:28 Glucose 82 mg/dL (65-115) 12/12/21 04:28 Calculated Osmolality 298 mOsm/kg (285-295) H 12/12/21 04:28 Uric Acid 10.0 mg/dL (3.4-7.0) H 12/05/21 05:10 Calcium 8.7 mg/dL (8.5-10.5) 12/12/21 04:28 Phosphorus 4.6 mg/dL (2.5-4.5) H 12/12/21 04:28 Magnesium 1.3 mg/dL (1.7-2.3) L 12/12/21 04:28 Iron 47 ug/dL (59-158) L 12/09/21 08:16 Iron Cancelled 12/09/21 08:16 TIBC 163 mcg/dl 12/09/21 08:16 % Saturation 28.8 % (20-50) 12/09/21 08:16 Unsat Iron Binding 116 ug/dL (112-347) 12/09/21 08:16 Ferritin 830 ng/mL (30-400) H 12/09/21 08:16 Total Bilirubin 0.7 mg/dL (0.15-1.2) 12/12/21 04:28 AST 12 U/L (0-40) 12/12/21 04:28 ALT 7 U/L (0-41) 12/12/21 04:28 Alkaline Phosphatase 77 IU/L (40-130) 12/12/21 04:28 Lactate Dehydrogenase 213 U/L (135-225) 12/05/21 05:10 Creatine Kinase 17 U/L (39-308) L 12/12/21 04:28 Troponin T Baseline 55 ng/L (0-15) H 12/04/21 11:52 Troponin T 120 Minute 55.20 ng/L (0-15) H 12/04/21 14:00 Delta Troponin T 0.20 ABS# (0-10) 12/04/21 14:00 Troponin T Hi Sens 6Hr 67.33 ng/L (0-15) H 12/04/21 17:50 Troponin T Hi Sens 6Hr Delta 12.33 ng/L (0-12) H* 12/04/21 17:50 C-Reactive Protein 13.0 mg/L (0.0-4.9) H 12/12/21 04:28 NT-Pro-B Natriuret Pep 4790 pg/mL (0-450) H 12/12/21 04:28 Total Protein 5.4 g/dL (6.6-8.7) L 12/12/21 04:28 Albumin 2.5 g/dL (3.5-5.2) L 12/12/21 04:28 Globulin 2.9 g/dL (1.3-4.6) 12/12/21 04:28 Lipase 12 U/L (13-60) L 12/04/21 11:52 Vitamin B12 335 pg/mL (232-1245) 12/09/21 08:16 Folate 3.6 ng/mL (4.5-32.2) L 12/09/21 08:16 Procalcitonin 0.27 ng/mL (0-0.5) 12/12/21 04:28 TSH 1.30 uIU/mL (0.27-4.20) 12/10/21 03:45 Free T4 1.18 ng/dL (0.82-1.77) 12/05/21 05:10 Random Cortisol 8.26 ug/dL (2.47-19.5) 12/09/21 08:16 Urine Color Dark yellow (Yellow) 12/05/21 18:50 Urine Appearance Sl hazy (CLEAR) 12/05/21 18:50 Urine pH 5 (5-7) 12/05/21 18:50 Ur Specific [place] 1.020 (1.005-1.030) 12/05/21 18:50 Urine Protein 1+ (Negative) H 12/05/21 18:50 Urine Glucose (UA) Norm (Normal) 12/05/21 18:50 Urine Ketones Negative (Negative) 12/05/21 18:50 Urine Blood 3+ (Negative) H 12/05/21 18:50 Urine Nitrate Negative (Negative) 12/05/21 18:50 Urine Bilirubin Neg (Negative) 12/05/21 18:50 Urine Urobilinogen Norm mg/dL (Negative) 12/05/21 18:50 Ur Leukocyte Esterase 1+ (Negative) H 12/05/21 18:50 Urine RBC 0-4 /hpf (0-2) H 12/05/21 18:50 Urine WBC 15-25 /hpf (0-5) H 12/05/21 18:50 Ur Squamous Epith Cells 0-4 /hpf (0-5) H 12/05/21 18:50 Ur Transition Epith Cell 0-4 /hpf 12/05/21 18:50 Ur Renal Epithelial Cell 0 /hpf 12/05/21 18:50 Amorphous Sediment Not Reportable 12/05/21 18:50 Urine Bacteria 3+ /hpf (NONE) H 12/05/21 18:50 Urine Mucus 1+ /hpf 12/05/21 18:50 Ur Random Sodium 36 mmol/L 12/05/21 18:50 Urine Creatinine 205 mg/dL (39-259) 12/05/21 18:50 Nasal Influ A H1 2008 PCR Not detected (NOT DETECT) 12/04/21 13:21 Vancomycin Trough 24.1 ug/mL (10-15) H 12/11/21 01:10 Tacrolimus (FK 506) 12.3 mcg/L 12/05/21 10:40 ANCA Screen Negative (NEGATIVE) 12/05/21 10:40 ANCA Titer Not Reportable 12/05/21 10:40 Coronavirus 229E (PCR) Not detected (NOT DETECT) 12/04/21 13:21 CMV IgG Ab >10.00 U/mL H 12/10/21 11:38 CMV IgM Ab <30.00 AU/mL 12/10/21 11:38 EBV IgG Ab >750.00 U/mL H 12/10/21 11:38 EBV IgM Ab <36.00 U/mL 12/10/21 11:38 EBV Nuclear Antigen >600.00 U/mL H 12/10/21 11:38 EBV Interpretation See note 12/10/21 11:38 HSV I IgG Ab 18.60 index H 12/10/21 11:38 HSV II IgG <0.90 index 12/10/21 11:38 Influenza A (H1) PCR Not detected (NOT DETECT) 12/04/21 13:21 Influenza A (H3) PCR Not detected (NOT DETECT) 12/04/21 13:21 Influenza Type A Ag Cancelled 12/04/21 13:21 Influenza Type A (PCR) Not detected (NOT DETECT) 12/04/21 13:21 Influenza Type B Ag Cancelled 12/04/21 13:21 Influenza Type B (PCR) Not detected (NOT DETECT) 12/04/21 13:21 SARS-CoV-2 (PCR) Not detected (NOT DETECT) 12/04/21 13:21 Blood Type A Negative 12/09/21 08:16 Rho(D) Type Negative 12/09/21 08:16 Antibody Screen Negative 12/09/21 08:16 Crossmatch See Detail 12/09/21 08:16 Radiology Impressions Chest X-Ray 12/04/21 11:06 IMPRESSION: No acute findings. Abdomen/Pelvis CT 12/04/21 16:55 IMPRESSION: 1. Right lower lobe soft tissue mass of unclear etiology follow-up exam is recommended 2. Bilateral lower lobe pleural effusions. 3. Status post right nephrectomy. 4. Atrophic left kidney . 5. Renal transplant in the right pelvis with a 5 mm caliceal stone Pulmonary Perfusion Imaging 12/05/21 09:27 IMPRESSION: Low probability pulmonary embolism. Head MRI 12/05/21 11:30 IMPRESSION: 1. Tiny right parietal lobe subacute infarction. 2. Mild sinusitis. Carotid Doppler Study 12/06/21 16:21 IMPRESSION: No carotid arterial stenosis. REFERENCES: SRU CRITERIA. The degree of internal carotid artery stenosis is based on criteria defined by the Society of Radiologists in Ultrasound (SRU). Normal is no stenosis. Mild is less than 50% stenosis. Moderate is 50-69% stenosis. Severe is greater than 69% stenosis to near occlusion. Near occlusion is a markedly narrowed lumen. Total occlusion is no detectable patent lumen. Chest/Abdomen/Pelvis CT 12/09/21 11:11 IMPRESSION: 1. No evidence of pulmonary embolus. 2. Moderate RIGHT greater than LEFT pleural effusions with atelectasis in the lung bases. Diffuse interstitial edema. 3. Masslike RIGHT greater than LEFT lymphadenopathy suspicious for metastatic disease versus primary bronchogenic carcinoma. 4. Multiple bilateral pulmonary nodules suspicious for metastatic disease described above. 5. Renal pelvic transplant in the RIGHT lower quadrant. Prior RIGHT nephrectomy. 6. No adenopathy in the abdomen or pelvis. 7. Enlarged prostate measuring 4.7 CM. Correlation PSA. 8. Lytic lesion posterior T5 vertebral body suspicious for metastatic disease. Notified Marcus Williamson MD at 12/09/2021 2:[address] 12/10/21 08:24 IMPRESSION: 1. No evidence of intracranial hemorrhage or mass effect. 2. . Moderate small vessel changes with moderate parenchymal volume loss. 3. No acute intracranial findings and no significant changes from the recent exams. Lumbar Puncture Fluoroscopy 12/11/21 09:23 IMPRESSION: Unsuccessful lumbar puncture attempt. The needle was in the thecal sac. There is a small flash of CSF replaced quickly replaced by a small amount of blood. Attempt terminated after several attempts at achieving adequate CSF. Notified Marcus Williamson MD at 12/11/2021 11:49 AM. Recent Clincial Data Last Vital Signs Temp 98.2 F 12/12/21 03:42 Pulse 91 12/12/21 08:50 Resp 18 12/12/21 08:50 BP 143/70 12/12/21 07:45 Pulse Ox 98 12/12/21 08:50 Vital Signs Temp Pulse Resp BP Pulse Ox 12/12/21 08:50 91 18 98 12/12/21 07:45 94 143/70 95 12/12/21 03:42 98.2 F 86 18 151/81 96 12/11/21 23:44 84 17 155/84 95 Intake & Output/Weight 12/10/21 12/11/21 12/12/21 12/13/21 06:59 06:59 06:59 06:59 Intake Total 1805 / 1805 1965.000 / 8221.223 5693 / 2120 150 / 150 Output Total 800 / 800 776 / 776 Balance 1005 / 1005 1189.000 / 8212.401 1316 / 2120 150 / 150 Weight 99.45 kg 96.933 kg Vitals Last Vital Signs Temp 98.2 F 12/12/21 03:42 Pulse 91 12/12/21 08:50 Resp 18 12/12/21 08:50 BP 143/70 12/12/21 07:45 Pulse Ox 98 12/12/21 08:50 TS Medications Medications Acetaminophen (Acetaminophen 325 Mg Tablet) 650 mg PO Q6H PRN PRN Reason: MILD PAIN Last Admin: 12/10/21 22:30 Dose: 650 mg Documented by: Albuterol Sulfate (Albuterol 2.5 Mg/0.5 Ml Neb) 2.5 mg INHALATION Q6H.RESPIRATORY PRN PRN Reason: SHORTNESS OF BREATH Atorvastatin Calcium (Atorvastatin 40 Mg Tablet) 40 mg PO DAILY [facility] Last Admin: 12/12/21 10:40 Dose: Not Given Documented by: Enoxaparin Sodium (Enoxaparin 40 Mg/0.4 Ml Syringe) 40 mg SUBCUT ONCE ONE Stop: 12/12/21 12:01 Folic Acid (Folic Acid 1 Mg Tablet) 1 mg PO BID [facility] Last Admin: 12/12/21 10:40 Dose: Not Given Documented by: Guaifenesin/Dextromethorphan (Guaifenesin-Dextromethorphan Udc 10 Ml) 5 ml PO Q4H PRN PRN Reason: COUGH Hydralazine HCl (Hydralazine 20 Mg/Ml Inj 1 Ml) 5 mg IVP Q4H PRN PRN Reason: HYPERTENSION Piperacillin Sod/Tazobactam (Sod 3.375 gm/ Sodium Chloride) 50 mls @ 12.5 mls/hr IV Q8H [facility]; Protocol Last Infusion: 12/12/21 08:59 Dose: Infused Documented by: Acyclovir 1,000 mg/ Sodium (Chloride) 120 mls @ 120 mls/hr IV Q8H [facility] Last Infusion: 12/12/21 04:25 Dose: Infused Documented by: Sodium Chloride (Sodium Chloride 0.9%) 1,000 mls @ 50 mls/hr IV .Q20H [facility] Last Admin: 12/12/21 01:44 Dose: 50 mls/hr Documented by: Vancomycin/PEG/NADA/Lysine/Water (Vancocin) 1,250 mg in 250 mls @ 200 mls/hr IV Q18H [facility] Last Infusion: 12/12/21 03:30 Dose: Infused Documented by: Potassium Phosphate 40 meq/ (Sodium Chloride) 109.0909 mls @ 27.25 mls/hr IV ONCE ONE Stop: 12/12/21 14:00 Last Admin: 12/12/21 11:08 Dose: 27.25 mls/hr Documented by: Levothyroxine Sodium (Levothyroxine 50 Mcg Tablet) 50 mcg PO DAILY [facility] Last Admin: 12/12/21 10:40 Dose: 50 mcg Documented by: Lorazepam (Lorazepam 2 Mg/Ml Inj 1 Ml) 1 mg IVP Q8H PRN PRN Reason: ANXIETY Last Admin: 12/12/21 03:26 Dose: 1 mg Documented by: Metoprolol Tartrate (Metoprolol Tartrate 50 Mg Tablet) 75 mg PO BID [facility] Last Admin: 12/12/21 10:28 Dose: 75 mg Documented by: Non-Formulary Medication (Levalbuterol Tartrate) 2 inh INHALATION Q6H [facility] Last Admin: 12/12/21 04:33 Dose: Not Given Documented by: Nystatin (Nystatin Cream 30 Gm) 1 applic TOPICAL BID [facility] Last Admin: 12/12/21 10:39 Dose: 1 applic Documented by: Olanzapine (Olanzapine 5 Mg Tablet) 5 mg PO Q12H [facility] Last Admin: 12/12/21 08:21 Dose: Not Given Documented by: Ondansetron HCl (Ondansetron 2 Mg/Ml Sdv 2 Ml) 4 mg IVP Q8H PRN PRN Reason: vomiting, or N/V if npo Pantoprazole Sodium (Pantoprazole Dr 40 Mg Tablet) 40 mg PO BID [facility] Last Admin: 12/12/21 10:41 Dose: Not Given Documented by: Prednisone (Prednisone 5 Mg Tablet) 5 mg PO DAILY [facility] Last Admin: 12/12/21 10:29 Dose: 5 mg Documented by: Sucralfate (Sucralfate 1 Gm Tablet) 1 gm PO AC&BEDTIME CRITICAL [facility] Last Admin: 12/12/21 06:13 Dose: Not Given Documented by: Tacrolimus (Tacrolimus 0.5 Mg Capsule) 2 mg PO Q12H [facility] Last Admin: 12/12/21 10:29 Dose: 2 mg Documented by: Tamsulosin HCl (Tamsulosin 0.4 Mg Capsule) 0.4 mg PO DAILY [facility] Last Admin: 12/12/21 10:28 Dose: 0.4 mg Documented by: Ziprasidone (Ziprasidone 20 Mg/Ml Sdv) 10 mg IM NOW PRN PRN Reason: pull IV Discontinued Medications Apixaban (Apixaban 5 Mg Tablet) 5 mg PO BID [facility] Last Admin: 12/05/21 08:20 Dose: 5 mg Documented by: Apixaban (Apixaban 5 Mg Tablet) 2.5 mg PO BID [facility] Last Admin: 12/06/21 08:30 Dose: 2.5 mg Documented by: Apixaban (Apixaban 5 Mg Tablet) 2.5 mg PO BID@0900,2100 [facility] Aspirin (Aspirin 81 Mg Ec Tablet) 81 mg PO DAILY [facility] Last Admin: 12/09/21 11:56 Dose: Not Given Documented by: Aspirin (Aspirin 81 Mg Ec Tablet) 81 mg PO DAILY [facility] Azithromycin (Azithromycin 250 Mg Tablet) 500 mg PO DAILY [facility] Last Admin: 12/09/21 11:56 Dose: Not Given Documented by: Ceftriaxone Sodium (Ceftriaxone 1,000 Mg Sdv) Confirm Administered Dose 1,000 mg .ROUTE .STK-MED ONE Stop: 12/08/21 11:57 Last Admin: 12/08/21 12:57 Dose: Not Given Documented by: Famotidine (Famotidine 20 Mg Tablet) 20 mg PO BID [facility] Last Admin: 12/08/21 17:12 Dose: 20 mg Documented by: Furosemide (Furosemide 10 Mg/Ml Sdv 4ml) 40 mg IVP ONCE ONE Stop: 12/10/21 07:54 Last Admin: 12/10/21 08:38 Dose: 40 mg Documented by: Furosemide (Furosemide 10 Mg/Ml Sdv 4ml) 40 mg IVP ONCE ONE Stop: 12/11/21 08:23 Last Admin: 12/11/21 10:47 Dose: Not Given Documented by: Furosemide (Furosemide 10 Mg/Ml Sdv 4ml) 40 mg IVP ONCE ONE Stop: 12/11/21 10:46 Last Admin: 12/11/21 11:45 Dose: 40 mg Documented by: Heparin Sodium (Porcine) (Heparin 5,000 Unit/Ml Inj 1 Ml) 5,000 unit SUBCUT Q8H [facility] Last Admin: 12/09/21 05:21 Dose: 5,000 unit Documented by: Sodium Chloride (Sodium Chloride 0.9%) 500 mls @ 500 mls/hr IV ONCE ONE Stop: 12/04/21 12:17 Last Infusion: 12/04/21 13:15 Dose: Infused Documented by: Sodium Chloride (Sodium Chloride 0.9%) 1,000 mls @ 100 mls/hr IV .Q10H [facility] Last Admin: 12/04/21 13:45 Dose: 100 mls/hr Documented by: Ceftriaxone Sodium 1,000 mg/ (Sodium Chloride) 50 mls @ 100 mls/hr IV ONCE ONE; Protocol Stop: 12/04/21 14:07 Last Admin: 12/04/21 13:41 Dose: 100 mls/hr Documented by: Ceftriaxone Sodium 1,000 mg/ (Sodium Chloride) 50 mls @ 100 mls/hr IV Q24H [facility]; Protocol Last Infusion: 12/09/21 11:07 Dose: Infused Documented by: Sodium Chloride (Sodium Chloride 0.9%) 1,000 mls @ 75 mls/hr IV .[id number] [facility] Last Admin: 12/06/21 16:08 Dose: Not Given Documented by: Azithromycin 500 mg/ Sodium (Chloride) 250 mls @ 250 mls/hr IV Q24H [facility]; Protocol Last Infusion: 12/09/21 09:53 Dose: Infused Documented by: Lactated Ringer's (Lactated Ringers) 1,000 mls @ 500 mls/hr IV .Q2H ONE Stop: 12/05/21 11:59 Last Infusion: 12/05/21 13:00 Dose: Infused Documented by: Magnesium Sulfate (Magnesium Sulfate Premix) 4 gm in 100 mls @ 50 mls/hr IV ONC E ONE Stop: 12/09/21 10:29 Last Infusion: 12/09/21 14:45 Dose: Infused Documented by: Vancomycin HCl / Sodium (Chloride) 250 mls @ 0 mls/hr [id number] PROTOCOL [facility]; Protocol Vancomycin/PEG/NADA/Lysine/Water (Vancocin) 1,250 mg in 250 mls @ 200 mls/hr IV Q12H [facility] Last Admin: 12/09/21 14:43 Dose: Not Given Documented by: Vancomycin/PEG/NADA/Lysine/Water (Vancocin) 1,250 mg in 250 mls @ 200 mls/hr IV Q12H [facility] Last Admin: 12/11/21 02:52 Dose: Not Given Documented by: Sodium Chloride (Sodium Chloride 0.9% (100 Ml)) Confirm Administered Dose 100 mls @ as directed .ROUTE .STK-MED ONE Stop: 12/09/21 16:12 Last Infusion: 12/09/21 19:37 Dose: Infused Documented by: Levetiracetam 1,000 mg/ Sodium (Chloride) 110 mls @ 440 mls/hr IV ONCE ONE Stop: 12/11/21 11:44 Last Infusion: 12/11/21 13:32 Dose: Infused Documented by: Magnesium Sulfate (Magnesium Sulfate Premix) 4 gm in 100 mls @ 50 mls/hr IV ONCE ONE Stop: 12/12/21 10:59 Last Infusion: 12/12/21 11:11 Dose: Infused Documented by: Iohexol (Iohexol 350 Mg/Ml 100 Ml Btl) 0 ml IV ONCE ONE Stop: 12/09/21 13:06 Last Admin: 12/09/21 13:05 Dose: 95 ml Documented by: Ketamine HCl (Ketamine 50 Mg/Ml Inj 10 Ml) Confirm Administered Dose 500 mg .ROUTE .STK-MED ONE Stop: 12/11/21 10:08 Potassium Chloride (Potassium Chloride Er 20 Meq Tablet) 20 meq PO ONCE ONE Stop: 12/07/21 20:26 Last Admin: 12/07/21 20:30 Dose: 20 meq Documented by: Potassium Chloride (Potassium Chloride Er 20 Meq Tablet) 20 meq PO ONCE ONE Stop: 12/08/21 14:18 Last Admin: 12/09/21 09:53 Dose: Not Given Documented by: Potassium Chloride (Potassium Chloride Er 20 Meq Tablet) 20 meq PO ONCE ONE Stop: 12/08/21 16:38 Last Admin: 12/08/21 17:12 Dose: 20 meq Documented by: Propofol (Propofol 10 Mg/Ml Sdv 20 Ml) Confirm Administered Dose 200 mg .ROUTE .STK-MED ONE Stop: 12/11/21 11:30 Allergies No Known Allergies Allergy (Verified 12/04/21 11:01) Home Medications amlodipine 5 mg tablet 5 mg PO DAILY 08/30/21 [History Confirmed 12/04/21] apixaban 5 mg tablet (Eliquis) 5 mg PO BID 08/30/21 [History Confirmed 12/04/21] atorvastatin 40 mg tablet 40 mg PO DAILY 08/30/21 [History Confirmed 12/04/21] cholecalciferol (vitamin D3) 25 mcg (1,000 unit) capsule (Vitamin D3) 25 mcg PO DAILY 08/30/21 [History Confirmed 12/04/21] levothyroxine 50 mcg tablet 50 mcg PO DAILY 08/30/21 [History Confirmed 12/04/21] loperamide 2 mg capsule 2 mg PO Q4H PRN 08/30/21 [History Confirmed 12/04/21] losartan 100 mg tablet 100 mg PO DAILY 08/30/21 [History Confirmed 12/04/21] mirtazapine 15 mg tablet 15 mg PO DAILY 08/30/21 [History Confirmed 12/04/21] prednisone 5 mg tablet 5 mg PO DAILY 08/30/21 [History Confirmed 12/04/21] tacrolimus 1 mg capsule, immediate-release 2 mg PO Q12H 08/30/21 [History Confirmed 12/04/21] tamsulosin 0.4 mg capsule 0.4 mg PO DAILY 08/30/21 [History Confirmed 12/04/21] hydrocodone 5 mg-acetaminophen 325 mg tablet 1 tab PO Q6H PRN #14 tab 08/31/21 [Rx Confirmed 12/04/21] acetaminophen 325 mg tablet (Tylenol) 325 mg PO QID PRN 12/04/21 [History Confirmed 12/04/21] calcium carbonate 200 mg calcium (500 mg) chewable tablet (Tums) 200 mg PO BID PRN 12/04/21 [History Confirmed 12/04/21] levalbuterol tartrate 45 mcg/actuation aerosol inhaler 2 inh INHALATION Q6H 12/04/21 [History Confirmed 12/04/21] melatonin 10 mg tablet 10 mg PO BEDTIME 12/04/21 [History Confirmed 12/04/21] metoprolol tartrate 50 mg tablet 75 mg PO BID 12/04/21 [History Confirmed 12/04/21] multivitamin with minerals-iron fumarate 9 mg iron/15 mL oral liquid (Multi Vitamin) 15 ml PO DAILY 12/04/21 [History Confirmed 12/04/21] aspirin 81 mg capsule 81 mg PO DAILY 30 Days #30 cap 12/08/21 [Rx] cefdinir 300 mg capsule 300 mg PO BID 3 Days #6 cap 12/08/21 [Rx] pantoprazole 40 mg tablet,delayed release (Protonix) 40 mg PO BID 30 Days #60 tab 12/08/21 [Rx] sucralfate 1 gram tablet (Carafate) 1 g PO BID 28 Days #56 tab 12/08/21 [Rx] Discharge Plan Discharge Patient Disposition: Xfer Other Condition: Stable Prescriptions: New cefdinir 300 mg capsule 300 mg PO BID 3 Days Qty: 6 0RF aspirin 81 mg capsule 81 mg PO DAILY 30 Days Qty: 30 0RF Protonix 40 mg tablet,delayed release (DR/EC) 40 mg PO BID 30 Days Qty: 60 0RF Carafate 1 gram tablet 1 g PO BID 28 Days Qty: 56 0RF Continued loperamide 2 mg Capsule 2 mg PO Q4H PRN (Reason: Diarrhea) 0RF amlodipine 5 mg Tablet 5 mg PO DAILY 0RF tamsulosin 0.4 mg Capsule 0.4 mg PO DAILY 0RF mirtazapine 15 mg Tablet 15 mg PO DAILY 0RF cholecalciferol (vitamin D3) [Vitamin D3] 25 mcg (1,000 unit) Capsule 25 mcg PO DAILY 0RF atorvastatin 40 mg Tablet 40 mg PO DAILY 0RF prednisone 5 mg Tablet 5 mg PO DAILY 0RF levothyroxine 50 mcg Tablet 50 mcg PO DAILY 0RF losartan 100 mg Tablet 100 mg PO DAILY 0RF tacrolimus 1 mg Capsule 2 mg PO Q12H 0RF hydrocodone-acetaminophen 5-325 mg tablet 1 tab PO Q6H PRN (Reason: pain) Qty: 14 0RF Tylenol 325 mg Tablet 325 mg PO QID PRN (Reason: Pain) 0RF Tums 200 mg calcium (500 mg) Tablet,Chewable 200 mg PO BID PRN (Reason: Heartburn) 0RF metoprolol tartrate 50 mg tablet 75 mg PO BID 0RF levalbuterol tartrate 45 mcg/actuation Hfa Aerosol Inhaler 2 inh INHALATION Q6H 0RF Multi Vitamin 9 mg iron/15 mL Liquid 15 ml PO DAILY 0RF melatonin 10 mg Tablet 10 mg PO BEDTIME 0RF Held Eliquis 5 mg Tablet 5 mg PO BID 0RF Hold Instructions: Resume on 01/07/22. hold until you see primary care Discontinued famotidine 20 mg Tablet 20 mg PO BID 0RF Referrals: Stephon King MD [Physician] - 12/16/21 8:45 am (egd and colonoscopy) Jenni Mccullough DO [Primary Care Provider] - 12/15/21 10:00 am Di Sepulveda MD [Staff Physician] - 2 weeks (anemia, thrombocytopenia LEFT MESSAGE WITH DR RIVERA TO PLEASE CALL APPOINTMENT TO PATIENT) Patient Instructions: Opioid Safety Activity Restrictions/Additional Instructions: - Needs to follow-up with transplant team at [place] within a month -Please hold Eliquis due to concerns for anemia and thrombocytopenia and bleeding -Follow-up for general surgery for EGD colonoscopy -For anemia, thrombocytopenia follow-up with [facility] -For your right parietal stroke, 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 -For anemia, recheck CBC in 48 hours -Follow-up with primary care - Transfer Attestations Time Spent in Transfer Care: less than 30 min Quality Metrics Clinical Quality Measures [ Cerebrovascular Accident { Contraindication to Antithrombotic: None; antithrombotic prescribed; Contraindication to Anticoagulation: None; anticoagulation prescribed; Contraindication to Statin: None; Statin prescribed;}] Coding Level of Care Code Acute Scales Inspector for [facility] Fwd Diagnoses Acute encephalopathy G93.40 Acute kidney injury superimposed on CKD N17.9; N18.9 UTI (urinary tract infection) N39.0 Thrombocytopenia D69.6 Candidal intertrigo B37.2 Decubital ulcer L89.90 Generalized weakness R53.1 Multiple falls R29.6 Metastatic renal cell carcinoma C64.9 Kidney 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
[2021-12-12] MEDS: sucralfate 1 gm Tablet PO (11:49)
[2021-12-12] MEDS: enoxaparin 40 mg/0.4 mL Syringe SUBCUT (11:49)
[2021-12-12] MEDS: aspirin 81 mg EC Tablet PO (11:58)
[2021-12-12 12:00] VITALS: BP 160/67; PULSE 78; RESP 13; TEMP 36.6; O2SAT 92
--- NOTE | 2021-12-12 12:55 | PC.NURSE ---
Gave report to Darlene at [facility]. she states he is on the list, but is doubtful they will have a bed today.
[2021-12-12 16:00] VITALS: BP 156/84; PULSE 77; RESP 13; TEMP 36.6; O2SAT 96
[2021-12-12 20:00] VITALS: BP 153/72; PULSE 76; PULSE 85; RESP 18; TEMP 37.1; O2SAT 96; O2SAT 97
[2021-12-12] MEDS: OLANZapine 5 mg TABLET PO (20:08)
[2021-12-12] MEDS: apixaban 5 mg Tablet PO (20:12)
[2021-12-13] VITALS (13 sets, daily range): BP systolic 152–187; BP diastolic 74–96; PULSE 72–109; RESP 16–18; TEMP 36.6–37.8; O2SAT 92–97
[2021-12-13] MEDS: acyclovir 1,000 MG in sodium chloride 0.9% (100 ml) 100 ML 120 MG IV ×3 (02:18→21:15)
[2021-12-13] MEDS: ziprasidone 20 mg/mL SDV 10 MG IM (04:18)
[2021-12-13 05:09] LABS: Basophils % 0.3 %; Eosinophils # 0.2 10^3/uL (0.0-0.8); Eosinophils % 3.2 %; Hematocrit 28.4 % (42.0-52.0); Lymphocytes # 2.3 10^3/uL (0.8-4.8); Lymphocytes % 29.7 %; Mean Corpuscular HGB Conc 31.7 g/dL (30.0-36.0); Mean Corpuscular Hemoglobin 32.8 pg (28.0-34.0); Mean Corpuscular Volume 103.6 fl (80-94); Mean Platelet Volume 10.7 fL (7.4-10.4); Monocytes # 0.7 10^3/uL (0.2-0.9); Monocytes % 9.6 %; Neutrophils # 4.27 10^3/uL (1.8-7.7); Neutrophils % 56.1 %; Nucleated Red Blood Cells % 0.3 %; Platelet Count 185 10^3/cmm (130-400); Red Blood Count 2.74 10^6/uL (4.1-5.3); Red Cell Distribution Width 15.8 % (12.1-15.1); White Blood Count 7.6 10^3/uL (4.0-10.0)
[2021-12-13 05:32] LABS: Alanine Aminotransferase 7 U/L (0-41); Alkaline Phosphatase 94 IU/L (40-130); Anion Gap 21.7 (5-19); Aspartate Amino Transferase 14 U/L (0-40); Blood Urea Nitrogen 14 mg/dL (8-23); Calcium 9.3 mg/dL (8.5-10.5); Carbon Dioxide 14 mmol/L (22-29); Chloride 113 mmol/L (98-107); Globulin 3.2 g/dL (1.3-4.6); Glucose 84 mg/dL (65-115); Magnesium 1.8 mg/dL (1.7-2.3); Osmolality Calculated 300 mOsm/kg (285-295); Phosphorus 4.4 mg/dL (2.5-4.5); Potassium 3.7 mmol/L (3.5-5.1); Sodium 145 mmol/L (136-145); Total Bilirubin 0.8 mg/dL (0.15-1.2); Total Protein 6.2 g/dL (6.6-8.7)
[2021-12-13] MEDS: LEVALBUTEROL TARTRATE 2 EACH INHALATION (05:34)
[2021-12-13] MEDS: piperacillin-tazobactam 3.375 GM in sodium chloride 0.9% (plus) 50 ML IV (06:00)
[2021-12-13] MEDS: LORazepam 2 mg/mL INJ 1 mL 1 MG IVP (07:50)
--- NOTE | 2021-12-13 10:19 | PC.SOCIAL ---
IMM Update pg 2 of IMM updated and reviewed via message w/ patients son Esdras. Patient is confused and has a sitter. Copy placed in room and Copy in chart updated.
--- NOTE | 2021-12-13 10:30 | PM.PN ---
Subjective Subjective: Patient was seen this morning, sitter at bedside, he had episodes of agitation overnight requiring Ativan, he does awaken, but falls back asleep, he refused to take his medications yesterday, was angry with nurses, this morning, he refused to take his medications afebrile overnight, normotensive, Vitals/I&O/Wt Last Vital Signs Temp 98.0 F 12/13/21 08:00 Pulse 72 12/13/21 08:00 Resp 17 12/13/21 08:00 BP 187/96 12/13/21 08:00 Pulse Ox 97 12/13/21 09:40 12/12/21 12/13/21 12/13/21 22:59 06:59 14:59 Intake Total 1649.0909 / 1918.0909 170 / 2088.0909 Balance 1649.0909 / 1918.09 / 2088.0909 Weight last 48 hrs Weight 94.438 kg Physical Exam Const: COMMON NORMALS: no acute distress OTHER: Does awaken, but not alert to person, not to place, not to time, Episodes of agitation Pupils equal round reactive to light Neck/C-Spine: COMMON NORMALS: no JVD Cardio: COMMON NORMALS: no JVD, regular rate, regular rhythm, S1 normal heart sound present and S2 normal heart sound present RATE: regular rate RHYTHM: regular rhythm HEART SOUNDS: S1 normal heart sound present and S2 normal heart sound present GI: COMMON NORMALS: Normal to inspection, nondistended, normoactive bowel sounds present, Soft to palpation and non-tender PALPATION: Yes Soft to palpation Extremity: COMMON NORMALS: no calf tenderness and no pedal edema Data : 12/13/21 04:32 12/13/21 04:32 Micro: Microbiology 12/10/21 07:15 Urine Culture - Final Urine,Clean Catch A&P Assessment and plan (1) Acute encephalopathy: He had initially improved, today, currently he is alert to person, to place, not to time Mentation is improving Suspect delirium with waxing and waning mental status, secondary to acute metabolic encephalopathy secondary to urinary tract infection. Improving bossible bronchitis, possible atypical pneumonia. 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 Mild sinusitis. Is intolerant to Eliquis due to anemia and thrombocytopenia. Start aspirin 81 mg continue statin. May benefit from better blood pressure control long-term. No carotid artery stenosis on carotid duplex. Pending tacrolimus level. Treat UTI, continue gentle fluid challenge, reassess renal function. With prolonged immobility, dehydration at risk for VTE, has transplanted kidney. Had dry cough. Abnormal D-dimer. VQ scan obtained, low probability of PE. Again could not reach her son by phone. Status: Acute (2) Acute kidney injury superimposed on CKD: Some improvement in renal function, although today creatinine stated 1.4 Nephrology assessment appreciated, with possibility of severe rejection in setting of complicated urinary tract infection. Continue treatment of infection. Gentle IV fluid challenge. Attempt to discontinue with improved oral intake. Tacrolimus level pending. No obstructive uropathy on CT. No obvious pyelonephritis. Hold losartan. Requested records from [facility] where he was recently admitted. Status: Acute (3) UTI (urinary tract infection): Klebsiella growing in urine. Continue ceftriaxone. Complicated UTI with acute encephalopathy on presentation and gentleman with immunosuppression, history of kidney transplantation. No obstructive uropathy or obvious pyelo on CT renal protocol. Status: Acute (4) Thrombocytopenia: Worsened thrombocytopenia. Follow-up Prograf level. Suspect secondary to infection. Eliquis held for now with platelets down to 62,000. For now prophylactic heparin. No suggestion of hemolysis. Status: Acute (5) Candidal intertrigo: Nystatin cream Status: Acute (6) Decubital ulcer: Possibly from prolonged immobilization. CK is normal. Reposition. Status: Acute (7) Generalized weakness: Mental status fluctuating. PT, OT assessment. He will need to return to SNF. Recently with generally weakness, failure to thrive, multiple falls. With metastatic renal cell carcinoma. Will need to resume follow-up with oncology. Details of his metastatic cancer is currently unknown, as well as prognosis or therapeutic plans and goals of care. He appears would want to continue treatment, although has not tolerated well, and his functional capacity has been declining. Status: Acute (8) Multiple falls: Status: Acute (9) Metastatic renal cell carcinoma: With recent pathologic spiral fracture of humerus. He reports was following with oncologist Dr. Greene in [place], although has not seen her in a while with his recent hospitalizations and custodial stays. Tells me he was diagnosed probably about 14 years ago with metastatic renal cancer, although he is somewhat hazy on the details. He tells me he has had nephrectomy, he thinks possibly bilateral. 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 He states more recently has been following up with Dr. Hart, he states is a speedboat operator at [facility], who had him treated with an anticancer medication with which she was also having persistent diarrhea, although says that this medication was discontinued recently, he is not sure why. He has not so far yet followed up with Dr. Hart. He had been meaning to set an appointment for follow-up with all his providers after getting out from the custodial. Status: Acute (10) Kidney transplanted: Continue tacrolimus for now, check level. Continue prednisone. Status: Acute (11) Long-term current use of tacrolimus: Check level, continue tacrolimus for now. Status: Acute (12) Chronic steroid use: Continue prednisone. Monitor for symptoms of adrenal insufficiency. Status: Acute (13) Acute delirium: Status: Acute Plan Acute encephalopathy -According to patient's son patient is normally alert and oriented x3, it is quite independent, goes up to [facility] to see his transplant team, he also goes to [place] to see his oncologist -this is a drastic change in his mentation that has persisted -this morning having hyperactive delirium -Patient's transplant team is at [facility], last follow-up was quite sometime ago, according to on-call renal transplant physician, patient should be on 1 g tacrolimus every 12 hours here he is on 2 g every 12 hours -Patient's oncologist Dr. Ramona Lee, last follow-up was back in August, he was on treatment for his renal cell carcinoma, metastatic to the chest, mediastinal lymph nodes, enlarged pulmonary nodules, however has not followed up since then, they are not sure if he still taking his cabozantinib -He has been treated for a UTI, with Rocephin, however his mentation has not improved -He does have a tiny parietal lobe subacute infarct -No fevers -Blood culture so far unremarkable -GI specimen so far unremarkable -Not requiring oxygen, not hemodynamically unstable -1.? No evidence of pulmonary embolus. 2.? Moderate RIGHT greater than LEFT pleural effusions with atelectasis in the lung bases. Diffuse interstitial edema. 3.? Masslike RIGHT greater than LEFT lymphadenopathy suspicious for metastatic disease versus primary bronchogenic carcinoma. 4.? Multiple bilateral pulmonary nodules suspicious for metastatic disease described above. 5.? Renal pelvic transplant in the RIGHT lower quadrant. Prior RIGHT nephrectomy. 6.? No adenopathy in the abdomen or pelvis. 7.? Enlarged prostate measuring 4.7 CM. Correlation PSA. 8.? Lytic lesion posterior T5 vertebral body suspicious for metastatic disease. Metastatic soft tissue lesion involving the posterior elements at L3 with destructive changes involving the lamina and spinous process. Soft tissue lesion measures approximately 3.1 x 4.3 x 3.1 cm AP by transverse by craniocaudal. This extends into the paravertebral soft tissues. 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 Repeat CT of the head 12/10/2021 1.? No evidence of intracranial hemorrhage or mass effect. 2.? . Moderate small vessel changes with moderate parenchymal volume loss. 3.? No acute intracranial findings and no significant changes from the recent exams. -pocal 0.51, crp 24.6, sed 7 -Mentation continues to decline, continues to have episode of agitation, does awaken, but falls back asleep Plan -repeat blood culure, urine culture, sputum so far negative -EEG ordered, cannot be done till Wednesday -Multiple trials for lumbar puncture, unable to obtain CSF sample -We will discuss with IR if they are willing to try it again for the third time, will hold Eliquis until then -on treatment for bacterial viral meningitis including vancomycin, Zosyn, acyclovir, mentation has not improved -We will discussed with [facility], transfer for neurology, continuous EEG monitoring, need for neurology evaluation, and transplant physician evaluation -Accepted at [facility], awaiting bed -I am still highly concerned that patient's symptomatology is likely limited to tacrolimus -zyprexa for agitation -neuro checks, aspiration precaution, nih stroke score -requiring one on one sitter History of CVA, back in 2019, status post tPA, MRI showing chronic microvascular infarcts Brain: A tiny subacute infarction is present in the right parietal lobe. Mild atrophy and mild to moderate white matter chronic microvascular changes are noted. No hemorrhage or midline shift. Cerebral ventricles: Normal. No ventriculomegaly. Bones/joints: Unremarkable. Paranasal sinuses: Mild left ethmoid sinusitis is noted. Mastoid air cells: Normal as visualized. No mastoid effusion. Orbital cavities: Unremarkable. Soft tissues: Unremarkable. -Now has a tiny right parietal lobe infarct hyperactive deleirum -zyprexa scheduled -ativan as needed -one on one sitter metastatic renal cell carcinoma -underwent right nephrectomy -Underwent renal transplant in 2008 at [facility], his niece was a donor as far as September 2021 -Sees Dr. 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 Greene -Suffered a right humeral fracture, pathologic, sees Dr. Dinh, medically managed, initially had a custodial because he cannot take care of himself, now back at home -Has not taking cobozantiib -Is now on Prograf, there is some confusion about the dosing, here he is taking 2 g every 12 hours, as per orders he should be on 1 g every 12 hours folic acid defeciency on replacment Pancytopenia, improving, likely secondary to tacrolimus, work-up as above we will transfuse 1 unit PRBC Anemia, thrombocytopenia, history of atrial fibrillation, holding Eliquis as patient requires 1 unit PRBC, Diarrhea: Negative C. difficile, stool culture, ordered parasites A. fib: Continue metoprolol, held Eliquis Hypothyroidism: Mildly elevated TSH, free T4 WNL, continue levothyroxine, reassess as outpatient. HTN HLD LUTS Depression Attestations Medical Necessity Statement*: Patient requires hospitalization for altered mental status Coding Level of Care Code Acute Manager Business Planning for [facility] Fwd Diagnoses Acute encephalopathy G93.40 Acute kidney injury superimposed on CKD N17.9; N18.9 UTI (urinary tract infection) N39.0 Thrombocytopenia D69.6 Candidal intertrigo B37.2 Decubital ulcer L89.90 Generalized weakness R53.1 Multiple falls R29.6 Metastatic renal cell carcinoma C64.9 Kidney 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
[2021-12-13 14:45] LABS: Vancomycin Trough 30.6 ug/mL (10-15)
--- NOTE | 2021-12-13 14:56 | PC.NURSE ---
Notified Dr. Williamson of patient Vanc T 30.6. Holding Vanc for now
--- NOTE | 2021-12-13 16:38 | PC.NURSE ---
This nurse reached out to [facility] transfer center to check status of bed assignment. Sandra stated they have had some discharges but there are still some patients ahead of him.
[2021-12-13] MEDS: piperacillin-tazobactam 3.375 GM in sodium chloride 0.9% (plus) 100 ML IV ×2 (16:53→23:58)
[2021-12-13] MEDS: dextrose 5%-sod chloride 0.9% 1,000 ML 75 ML IV (18:31)
[2021-12-14] VITALS (10 sets, daily range): BP systolic 118–184; BP diastolic 71–84; PULSE 71–100; RESP 14–18; TEMP 36.6–38; O2SAT 94–96
[2021-12-14 03:56] LABS: Basophils % 0.1 %; Eosinophils # 0.1 10^3/uL (0.0-0.8); Eosinophils % 1.7 %; Hemoglobin 8.4 g/dL (11.7-16.6); Lymphocytes # 1.7 10^3/uL (0.8-4.8); Lymphocytes % 22.7 %; Mean Corpuscular HGB Conc 31.1 g/dL (30.0-36.0); Mean Corpuscular Hemoglobin 32.7 pg (28.0-34.0); Mean Corpuscular Volume 105.1 fl (80-94); Mean Platelet Volume 10.7 fL (7.4-10.4); Monocytes # 0.8 10^3/uL (0.2-0.9); Monocytes % 10.4 %; Neutrophils # 4.91 10^3/uL (1.8-7.7); Neutrophils % 64.1 %; Nucleated Red Blood Cells % 0.3 %; Platelet Count 167 10^3/cmm (130-400); Red Blood Count 2.57 10^6/uL (4.1-5.3); Red Cell Distribution Width 15.9 % (12.1-15.1); White Blood Count 7.7 10^3/uL (4.0-10.0)
[2021-12-14 04:14] LABS: Alanine Aminotransferase 7 U/L (0-41); Alkaline Phosphatase 83 IU/L (40-130); Aspartate Amino Transferase 14 U/L (0-40); Blood Urea Nitrogen 12 mg/dL (8-23); Calcium 9.4 mg/dL (8.5-10.5); Carbon Dioxide 16 mmol/L (22-29); Chloride 115 mmol/L (98-107); Globulin 2.6 g/dL (1.3-4.6); Glucose 112 mg/dL (65-115); Magnesium 1.5 mg/dL (1.7-2.3); Osmolality Calculated 303 mOsm/kg (285-295); Phosphorus 3.1 mg/dL (2.5-4.5); Sodium 146 mmol/L (136-145); Total Bilirubin 0.9 mg/dL (0.15-1.2); Total Protein 5.6 g/dL (6.6-8.7)
[2021-12-14 04:21] LABS: Anion Gap 18.8 (5-19)
[2021-12-14 04:22] LABS: Potassium 3.8 mmol/L (3.5-5.1)
[2021-12-14] MEDS: acyclovir 1,000 MG in sodium chloride 0.9% (100 ml) 100 ML 120 MG IV ×3 (04:57→21:35)
[2021-12-14] MEDS: acetaminophen 650 mg Supp PR (05:00)
[2021-12-14] MEDS: dextrose 5%-sod chloride 0.9% 1,000 ML 75 ML IV (09:05)
[2021-12-14] MEDS: nystatin cream 30 gm 1 APPLIC TOPICAL ×2 (09:51→18:00)
[2021-12-14] MEDS: piperacillin-tazobactam 3.375 GM in sodium chloride 0.9% (plus) 100 ML IV ×2 (09:53→15:30)
--- NOTE | 2021-12-14 11:15 | XRR_ITS ---
PROCEDURE INFORMATION: Exam: XR Chest Exam date and time: 12/14/2021 11:33 AM Age: 76 years old Clinical indication: Device placement; Ng tube; Additional info: Ng placement TECHNIQUE: Imaging protocol: XR of the chest. Views: 1 view. COMPARISON: CR XR chest 1V portable [id number] 12/04/2021 11:11 AM FINDINGS: Tubes, catheters and devices: NG tube tip terminates within the proximal stomach. Side port is located in the distal esophagus. Lungs: Diffuse coarsening of the lung parenchyma. No focal consolidation. Pleural spaces: Unremarkable. No pleural effusion. No pneumothorax. Heart/Mediastinum: Borderline enlarged heart. Bones/joints: Visualized osseous structures are intact. XR/XR chest 1V portable [id number] IMPRESSION: NG tube tip terminates in the proximal stomach, however, the side port is located in the distal esophagus. Would recommend at least 7 cm advancement for proper placement of the tip and side port within the stomach.
[2021-12-14] MEDS: tacrolimus 0.5 mg Capsule 2 MG PO ×2 (12:03→21:00)
[2021-12-14] MEDS: folic acid 1 mg Tablet PO ×2 (12:04→17:59)
[2021-12-14] MEDS: atorvastatin 40 mg Tablet PO (12:04)
[2021-12-14] MEDS: aspirin 81 mg EC Tablet PO (12:04)
[2021-12-14] MEDS: tamsulosin 0.4 mg Capsule PO (12:04)
[2021-12-14] MEDS: levothyroxine 50 mcg Tablet PO (12:04)
[2021-12-14] MEDS: metoprolol tartrate 50 mg Tablet 75 MG PO ×2 (12:04→18:00)
[2021-12-14] MEDS: predniSONE 5 mg Tablet PO (12:05)
[2021-12-14] MEDS: pantoprazole DR 40 mg Tablet PO ×2 (12:05→18:00)
[2021-12-14] MEDS: apixaban 5 mg Tablet PO ×2 (12:08→21:00)
[2021-12-14] MEDS: magnesium sulfate premix 4 GM/100 ML PREMIX IV (12:29)
--- NOTE | 2021-12-14 13:12 | PM.PN ---
Subjective Subjective: Patient was seen this morning, currently being turned by nursing staff, he does complain and went in a lot of pain when he is turned, he has stage I sacral ulcer, over his sacrum, he awakens to his name, he opens his eyes, tells me his name, is able to squeeze my fingers, but is quite drowsy, has no specific pain complaints, pupils are pinpoint, but equal reactive to light, he falls back asleep, continues to have poor appetite, afebrile overnight, normotensive, on room air, O2 sats in the high 90s maintaining his airway Vitals/I&O/Wt Last Vital Signs Temp 97.8 F 12/14/21 11:59 Pulse 92 12/14/21 11:59 Resp 14 12/14/21 11:59 BP 155/78 12/14/21 11:59 Pulse Ox 94 12/14/21 11:59 12/13/21 12/14/21 12/14/21 22:59 06:59 14:59 Intake Total 1375 / 1375 340 / 1715 1000 / 1000 Balance 1375 / 1375 340 / 1715 1000 / 1000 Weight last 48 hrs Weight 95.339 kg Weight 94.438 kg Physical Exam Const: COMMON NORMALS: no acute distress OTHER: Alert to person, not to place, not to time, drowsy Pupils equal round reactive to light, pinpoint Does respond to sternal rub withdraws from pain, can follow commands of squeezing my fingers, but falls asleep Neck/C-Spine: COMMON NORMALS: no JVD Resp: COMMON NORMALS: normal respiratory effort, No retractions, No use of accessory muscles and clear to auscultation bilaterally AUSCULTATION: clear to auscultation bilaterally Cardio: COMMON NORMALS: no JVD, regular rate, regular rhythm, S1 normal heart sound present and S2 normal heart sound present RATE: regular rate RHYTHM: regular rhythm HEART SOUNDS: S1 normal heart sound present and S2 normal heart sound present GI: COMMON NORMALS: Normal to inspection, nondistended, normoactive bowel sounds present, Soft to palpation and non-tender PALPATION: Yes Soft to palpation Extremity: COMMON NORMALS: no pedal edema Data : 12/14/21 03:07 12/14/21 03:07 Micro: Microbiology 12/09/21 11:39 Blood Culture - Final Blood NO GROWTH AFTER 5 DAYS 05/03/22 11:37 Blood Culture - Final Blood NO GROWTH AFTER 5 DAYS A&P Assessment and plan (1) Acute encephalopathy: He had initially improved, today, currently he is alert to person, to place, not to time Mentation is improving Suspect delirium with waxing and waning mental status, secondary to acute metabolic encephalopathy secondary to urinary tract infection. Improving bossible bronchitis, possible atypical pneumonia. 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 Mild sinusitis. Is intolerant to Eliquis due to anemia and thrombocytopenia. Start aspirin 81 mg continue statin. May benefit from better blood pressure control long-term. No carotid artery stenosis on carotid duplex. Pending tacrolimus level. Treat UTI, continue gentle fluid challenge, reassess renal function. With prolonged immobility, dehydration at risk for VTE, has transplanted kidney. Had dry cough. Abnormal D-dimer. VQ scan obtained, low probability of PE. Again could not reach her son by phone. Status: Acute (2) Acute kidney injury superimposed on CKD: Some improvement in renal function, although today creatinine stated 1.4 Nephrology assessment appreciated, with possibility of severe rejection in setting of complicated urinary tract infection. Continue treatment of infection. Gentle IV fluid challenge. Attempt to discontinue with improved oral intake. Tacrolimus level pending. No obstructive uropathy on CT. No obvious pyelonephritis. Hold losartan. Requested records from [facility] where he was recently admitted. Status: Acute (3) UTI (urinary tract infection): Klebsiella growing in urine. Continue ceftriaxone. Complicated UTI with acute encephalopathy on presentation and gentleman with immunosuppression, history of kidney transplantation. No obstructive uropathy or obvious pyelo on CT renal protocol. Status: Acute (4) Thrombocytopenia: Worsened thrombocytopenia. Follow-up Prograf level. Suspect secondary to infection. Eliquis held for now with platelets down to 62,000. For now prophylactic heparin. No suggestion of hemolysis. Status: Acute (5) Candidal intertrigo: Nystatin cream Status: Acute (6) Decubital ulcer: Possibly from prolonged immobilization. CK is normal. Reposition. Status: Acute (7) Generalized weakness: Mental status fluctuating. PT, OT assessment. He will need to return to SNF. Recently with generally weakness, failure to thrive, multiple falls. With metastatic renal cell carcinoma. Will need to resume follow-up with oncology. Details of his metastatic cancer is currently unknown, as well as prognosis or therapeutic plans and goals of care. He appears would want to continue treatment, although has not tolerated well, and his functional capacity has been declining. Status: Acute (8) Multiple falls: Status: Acute (9) Metastatic renal cell carcinoma: With recent pathologic spiral fracture of humerus. He reports was following with oncologist Dr. Greene in [place], although has not seen her in a while with his recent hospitalizations and [facility] stays. Tells me he was diagnosed probably about 14 years ago with metastatic renal cancer, although he is somewhat hazy on the details. He tells me he has had nephrectomy, he thinks possibly bilateral. 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 He states more recently has been following up with Dr. Hart, he states is a finance insurance manager at [facility], who had him treated with an anticancer medication with which she was also having persistent diarrhea, although says that this medication was discontinued recently, he is not sure why. He has not so far yet followed up with Dr. Hart. He had been meaning to set an appointment for follow-up with all his providers after getting out from the [facility]. Status: Acute (10) Kidney transplanted: Continue tacrolimus for now, check level. Continue prednisone. Status: Acute (11) Long-term current use of tacrolimus: Check level, continue tacrolimus for now. Status: Acute (12) Chronic steroid use: Continue prednisone. Monitor for symptoms of adrenal insufficiency. Status: Acute (13) Acute delirium: Status: Acute Plan Poor appetite, with hypernatremia, altered mental status -Insert NG tube -Start gentle tube feeds, free water flushes Acute encephalopathy -According to patient's son patient is normally alert and oriented x3, it is quite independent, goes up to [facility] to see his transplant team, he also goes to [place] to see his oncologist -this is a drastic change in his mentation that has persisted -this morning having hyperactive delirium -Patient's transplant team is at [facility], last follow-up was quite sometime ago, according to on-call renal transplant physician, patient should be on 1 g tacrolimus every 12 hours here he is on 2 g every 12 hours -Patient's oncologist Dr. Ramona Lee, last follow-up was back in August, he was on treatment for his renal cell carcinoma, metastatic to the chest, mediastinal lymph nodes, enlarged pulmonary nodules, however has not followed up since then, they are not sure if he still taking his cabozantinib -He has been treated for a UTI, with Rocephin, however his mentation has not improved -He does have a tiny parietal lobe subacute infarct -No fevers -Blood culture so far unremarkable -GI specimen so far unremarkable -Not requiring oxygen, not hemodynamically unstable -1.? No evidence of pulmonary embolus. 2.? Moderate RIGHT greater than LEFT pleural effusions with atelectasis in the lung bases. Diffuse interstitial edema. 3.? Masslike RIGHT greater than LEFT lymphadenopathy suspicious for metastatic disease versus primary bronchogenic carcinoma. 4.? Multiple bilateral pulmonary nodules suspicious for metastatic disease described above. 5.? Renal pelvic transplant in the RIGHT lower quadrant. Prior RIGHT nephrectomy. 6.? No adenopathy in the abdomen or pelvis. 7.? Enlarged prostate measuring 4.7 CM. Correlation PSA. 8.? Lytic lesion posterior T5 vertebral body suspicious for metastatic disease. Metastatic soft tissue lesion involving the posterior elements at L3 with destructive changes involving the lamina and spinous process. Soft tissue lesion measures approximately 3.1 x 4.3 x 3.1 cm AP by transverse by craniocaudal. This extends into the paravertebral soft tissues. 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 Repeat CT of the head 12/10/2021 1.? No evidence of intracranial hemorrhage or mass effect. 2.? . Moderate small vessel changes with moderate parenchymal volume loss. 3.? No acute intracranial findings and no significant changes from the recent exams. -pocal 0.51, crp 24.6, sed 7 -Mentation continues to decline, did not improve with A trial Plan -repeat blood culure, urine culture, sputum so far negative -EEG ordered, cannot be done till Wednesday -Multiple trials for lumbar puncture, unable to obtain CSF sample -on treatment for bacterial viral meningitis including vancomycin, Zosyn, acyclovir, mentation has not improved -discussed with [facility], transfer for neurology, continuous EEG monitoring, need for neurology evaluation, and transplant physician evaluation -Accepted at [facility], awaiting bed -Patient was given a trial of Keppra due to his continued decline in his mentation, no significant provement -Will do CT of the head today repeat -I am still highly concerned that patient's symptomatology is likely limited to tacrolimus -zyprexa for agitation -neuro checks, aspiration precaution, nih stroke score -requiring one on one sitter History of CVA, back in 2019, status post tPA, MRI showing chronic microvascular infarcts Brain: A tiny subacute infarction is present in the right parietal lobe. Mild atrophy and mild to moderate white matter chronic microvascular changes are noted. No hemorrhage or midline shift. Cerebral ventricles: Normal. No ventriculomegaly. Bones/joints: Unremarkable. Paranasal sinuses: Mild left ethmoid sinusitis is noted. Mastoid air cells: Normal as visualized. No mastoid effusion. Orbital cavities: Unremarkable. Soft tissues: Unremarkable. -Now has a tiny right parietal lobe infarct hyperactive deleirum -zyprexa scheduled -ativan as needed -one on one sitter metastatic renal cell carcinoma -underwent right nephrectomy -Underwent renal transplant in 2008 at [place], his niece was a donor as far as September 2021 -Sees Dr. Galo at [place] -P T3a renal cell carcinoma, metastatic pulmonary nodules in 2019, mediastinal adenopathy, sees Dr. Greene -Suffered a right humeral fracture, pathologic, sees Dr. Dinh, medically managed, initially had a [facility] because he cannot take care of himself, now back at home -Has not taking cobozantiib -Is now on Prograf, there is some confusion about the dosing, here he is taking 2 g every 12 hours, as per orders he should be on 1 g every 12 hours folic acid defeciency on replacment Pancytopenia, improving, likely secondary to tacrolimus, work-up as above we will transfuse 1 unit PRBC Anemia, thrombocytopenia, history of atrial fibrillation, holding Eliquis as patient requires 1 unit PRBC, Diarrhea: Negative C. difficile, stool culture, ordered parasites A. fib: Continue metoprolol, held Eliquis Hypothyroidism: Mildly elevated TSH, free T4 WNL, continue levothyroxine, reassess as outpatient. HTN HLD LUTS Depression Attestations Medical Necessity Statement*: Patient requires hospitalization for dehydration, hyponatremia, altered mental status Coding Level of Care Code Acute Food Aide for Chg Fwd Diagnoses Acute encephalopathy G93.40 Acute kidney injury superimposed on CKD N17.9; N18.9 UTI (urinary tract infection) N39.0 Thrombocytopenia D69.6 Candidal intertrigo B37.2 Decubital ulcer L89.90 Generalized weakness R53.1 Multiple falls R29.6 Metastatic renal cell carcinoma C64.9 Kidney 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
--- NOTE | 2021-12-14 13:13 | CTR_ITS ---
PROCEDURE INFORMATION: Exam: CT Head Without Contrast Exam date and time: 12/14/2021 2:08 PM Age: 76 years old Clinical indication: Altered mental status/memory loss; Confusion or disorientation; Patient HX: HX of renal cell w failure to thrive and AMS TECHNIQUE: Imaging protocol: Computed tomography of the head without contrast. Radiation optimization: All CT scans at this facility use at least one of these dose optimization techniques: automated exposure control; mA and/or kV adjustment per patient size (includes targeted exams where dose is matched to clinical indication); or iterative reconstruction. COMPARISON: CT head wo con* [id number] 12/10/2021 9:27 AM RADIATION DOSE METRICS: Total DLP (mGy-cm): 864.26 FINDINGS: Brain: Large amount of diffuse white matter disease likely reflecting chronic microvascular ischemic changes. Cerebral ventricles: No ventriculomegaly. Paranasal sinuses: Paranasal sinus opacifications. Mastoid air cells: Visualized mastoid air cells are well aerated. Bones/joints: Unremarkable. No acute fracture. Soft tissues: Unremarkable. CT/CT head wo con* [id number] IMPRESSION: Negative for intracranial hemorrhage or mass effect
[2021-12-14] MEDS: sucralfate 1 gm Tablet PO ×3 (13:38→21:00)
[2021-12-14 18:17] LABS: Aspergillus AG,EIA,Serum NOT DETECTED; Aspergillus Galactomannan Inde <0.50
[2021-12-15] VITALS: BP 135/80; PULSE 85; RESP 17; TEMP 36.9; O2SAT 94
[2021-12-15] MEDS: dextrose 5%-sod chloride 0.9% 1,000 ML 75 ML IV ×3 (00:23→17:40)
[2021-12-15] MEDS: piperacillin-tazobactam 3.375 GM in sodium chloride 0.9% (plus) 100 ML IV ×3 (00:23→17:34)
[2021-12-15] MEDS: vancomycin 1,000 MG in sodium chloride 0.9% 250 ML 250 MG IV (01:58)
[2021-12-15 04:00] VITALS: BP 169/88; PULSE 93; RESP 18; TEMP 37; O2SAT 95
[2021-12-15] MEDS: acyclovir 1,000 MG in sodium chloride 0.9% (100 ml) 100 ML 120 MG IV ×3 (04:27→21:57)
[2021-12-15 05:42] LABS: Basophils % 0.2 %; Eosinophils # 0.1 10^3/uL (0.0-0.8); Eosinophils % 0.9 %; Hematocrit 26.5 % (42.0-52.0); Hemoglobin 8.2 g/dL (11.7-16.6); Lymphocytes % 18.7 %; Mean Corpuscular HGB Conc 30.9 g/dL (30.0-36.0); Mean Corpuscular Hemoglobin 32.4 pg (28.0-34.0); Mean Corpuscular Volume 104.7 fl (80-94); Mean Platelet Volume 10.6 fL (7.4-10.4); Monocytes # 0.8 10^3/uL (0.2-0.9); Monocytes % 7.4 %; Neutrophils # 7.58 10^3/uL (1.8-7.7); Neutrophils % 71.6 %; Nucleated Red Blood Cells % 0.2 %; Platelet Count 153 10^3/cmm (130-400); Red Blood Count 2.53 10^6/uL (4.1-5.3); Red Cell Distribution Width 15.8 % (12.1-15.1); White Blood Count 10.6 10^3/uL (4.0-10.0)
[2021-12-15 06:01] LABS: Alanine Aminotransferase 6 U/L (0-41); Albumin Level 2.6 g/dL (3.5-5.2); Alkaline Phosphatase 82 IU/L (40-130); Anion Gap 15.3 (5-19); Aspartate Amino Transferase 14 U/L (0-40); Blood Urea Nitrogen 12 mg/dL (8-23); Calcium 9.3 mg/dL (8.5-10.5); Carbon Dioxide 17 mmol/L (22-29); Chloride 117 mmol/L (98-107); Globulin 3.7 g/dL (1.3-4.6); Glucose 129 mg/dL (65-115); Magnesium 1.9 mg/dL (1.7-2.3); Osmolality Calculated 303 mOsm/kg (285-295); Phosphorus 2.7 mg/dL (2.5-4.5); Potassium 3.3 mmol/L (3.5-5.1); Sodium 146 mmol/L (136-145); Total Bilirubin 0.9 mg/dL (0.15-1.2); Total Protein 6.3 g/dL (6.6-8.7)
[2021-12-15] MEDS: sucralfate 1 gm Tablet PO (06:03)
[2021-12-15 08:00] VITALS: BP 183/89; PULSE 78; PULSE 90; RESP 13; RESP 17; TEMP 37; O2SAT 94; O2SAT 95
--- NOTE | 2021-12-15 09:01 | PC.NUTR ---
TF consult received for Jevity 1.2. Recommend beginning at 15 ml/hr and increasing 10 mls Q8H as tolerated til goal rate of 55 mls/hr with flushes of 100 mls Q4H. Details in RD assessment.
[2021-12-15] MEDS: folic acid 1 mg Tablet PO ×2 (09:08→17:41)
[2021-12-15] MEDS: pantoprazole DR 40 mg Tablet PO ×2 (09:08→17:41)
[2021-12-15] MEDS: metoprolol tartrate 50 mg Tablet 75 MG PO ×2 (09:08→17:41)
[2021-12-15] MEDS: aspirin 81 mg EC Tablet PO (09:08)
[2021-12-15] MEDS: levothyroxine 50 mcg Tablet PO (09:10)
[2021-12-15] MEDS: tamsulosin 0.4 mg Capsule PO (09:10)
[2021-12-15] MEDS: predniSONE 5 mg Tablet PO (09:10)
[2021-12-15] MEDS: apixaban 5 mg Tablet PO ×2 (09:10→20:31)
[2021-12-15] MEDS: tacrolimus 0.5 mg Capsule 2 MG PO ×2 (09:10→20:30)
[2021-12-15] MEDS: atorvastatin 40 mg Tablet PO (09:10)
[2021-12-15] MEDS: nystatin cream 30 gm 1 APPLIC TOPICAL ×2 (09:20→17:42)
--- NOTE | 2021-12-15 10:22 | PC.SOCIAL ---
IMM Updated IMM Updated. Provided pt a copy of IMM. Initialed, dated, & timed copy in chart.
--- NOTE | 2021-12-15 11:25 | PC.OT ---
OT tx attempted. Pt lying in bed with 1:1 sitter present. He does respond to therapists voice to open his eyes 1x. Pt immediately closes eyes again and mumbles unintelligibly. Pt unable to participate in functional activities for OT at this time. Will attempt tx again at later time if possible.
[2021-12-15 16:00] VITALS: BP 156/82; PULSE 84; RESP 12; TEMP 36.9; O2SAT 95
[2021-12-15 19:59] VITALS: BP 160/74; PULSE 78; RESP 17; TEMP 37.7; O2SAT 96
[2021-12-15 20:45] VITALS: PULSE 79; RESP 16; O2SAT 97
--- NOTE | 2021-12-15 21:02 | P.PN_ITS ---
Subjective Subjective: Lethargic. Confused. Vitals/I&O/Wt Last Vital Signs Temp 99.9 F H 12/15/21 19:59 Pulse 79 12/15/21 20:45 Resp 16 12/15/21 20:45 BP 160/74 12/15/21 19:59 Pulse Ox 97 12/15/21 20:45 12/15/21 12/15/21 12/15/21 06:59 14:59 22:59 Intake Total 470 / 3220 1325 / 1325 243.75 / 1568.75 Balance 470 / 3220 1325 / 1325 243.75 / 1568.75 Weight last 48 hrs Weight 96.207 kg Weight 95.339 kg Physical Exam Const: GENERAL APPEARANCE: lethargic; not cooperative ORIENTATION/CONSCIOUSNESS: Yes confused and Yes lethargic HENMT: COMMON NORMALS: normocephalic, EAC's normal, Normal external nose present and moist oral mucous membranes HEAD & SCALP: normocephalic NOSE: Normal external nose present EXTERNAL AUDITORY CANAL: EAC's normal OTHER: NGT Chest: CHEST: Yes Symmetrical chest wall rise Resp: COMMON NORMALS: clear to auscultation bilaterally AUSCULTATION: clear to auscultation bilaterally Cardio: COMMON NORMALS: regular rate, regular rhythm and No murmurs present (Cardio) RATE: regular rate RHYTHM: regular rhythm GI: COMMON NORMALS: Normal to inspection, nondistended, normoactive bowel sounds present, Soft to palpation and non-tender PALPATION: Yes Soft to palpation Extremity: COMMON NORMALS: no pedal edema Neuro: COMMON NORMALS: moves all extremities SENSORIUM/ORIENTATION: Yes lethargic Skin: COMMON NORMALS: no wounds GENERAL SKIN EXAM: erythema (Buttocks, sacrum, groin, scrotum) RASHES: no rashes WOUNDS: Yes wounds noted (stage 1 sacral decub) Data : 12/15/21 05:18 12/15/21 05:18 A&P Assessment and plan (1) Acute encephalopathy: Worsened encephalopathy. Confused and lethargic. Not following commands. NGT in place for medications. Started on trickle feed. EEG is requested. Unable to obtain spinal fluid analysis. On empiric antibiotic. Urine bacterial culture was without growth. On empiric acyclovir. Low grade fevers. Will broaden with empiric caspofungin. Tacrolimus level noted 12. Above target, and documentation indicating she be on 1 mg twice daily. Decrease dose. Antipsychotics on hold. Continue one-to-one sitter. Pending transfer to tertiary facility, on a waiting list, not yet able to accept. Improving bossible bronchitis, possible atypical pneumonia. 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 Mild sinusitis. Is intolerant to Eliquis due to anemia and thrombocytopenia. Start aspirin 81 mg continue statin. May benefit from better blood pressure control long-term. No carotid artery stenosis on carotid duplex. With prolonged immobility, dehydration at risk for VTE, has transplanted kidney. Had dry cough. Abnormal D-dimer. VQ scan obtained, low probability of PE. Status: Acute (2) Acute kidney injury superimposed on CKD: Improved. Nephrology assessment appreciated, with possibility of severe rejection in setting of complicated urinary tract infection. Continue treatment of infection. Gentle IVF. Trophic feeds. Tacrolimus level noted at 12 No obstructive uropathy on CT. No obvious pyelonephritis. Hold losartan. Requested records from [facility] where he was recently admitted. Status: Acute (3) UTI (urinary tract infection): Klebsiella growing in urine. Continue ceftriaxone. Complicated UTI with acute encephalopathy on presentation and gentleman with immunosuppression, history of kidney transplantation. No obstructive uropathy or obvious pyelo on CT renal protocol. Status: Acute (4) Thrombocytopenia: Improved No suggestion of hemolysis. Status: Acute (5) Candidal intertrigo: Nystatin cream Status: Acute (6) Decubital ulcer: Possibly from prolonged immobilization. CK is normal. Reposition. Status: Acute (7) Generalized weakness: Mental status fluctuating. PT, OT assessment. He will need to return to SNF. Recently with generally weakness, failure to thrive, multiple falls. With metastatic renal cell carcinoma. Will need to resume follow-up with oncology. Details of his metastatic cancer is currently unknown, as well as prognosis or therapeutic plans and goals of care. He appears would want to continue treatment, although has not tolerated well, and his functional capacity has been declining. Status: Acute (8) Multiple falls: Status: Acute (9) Metastatic renal cell carcinoma: With recent pathologic spiral fracture of humerus. He reports was following with oncologist Dr. Greene in [place], although has not seen her in a while with his recent hospitalizations and halfway stays. Tells me he was diagnosed probably about 14 years ago with metastatic renal cancer, although he is somewhat hazy on the details. He tells me he has had nephrectomy, he thinks possibly bilateral. 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 He states more recently has been following up with Dr. Hart, he states is a presser and shaper knitted goods at [facility], who had him treated with an anticancer medication with which she was also having persistent diarrhea, although says that this medication was discontinued recently, he is not sure why. He has not so far yet followed up with Dr. Hart. He had been meaning to set an appointment for follow-up with all his providers after getting out from the halfway. Status: Acute (10) Kidney transplanted: Continue tacrolimus for now, check level. Continue prednisone. Status: Acute (11) Long-term current use of tacrolimus: Check level, continue tacrolimus for now. Status: Acute (12) Chronic steroid use: Continue prednisone. Monitor for symptoms of adrenal insufficiency. Status: Acute (13) Acute delirium: Status: Acute Plan Diarrhea: Negative C. difficile, stool culture, ordered parasites A. fib: Continue metoprolol, held Eliquis Hypothyroidism: Mildly elevated TSH, free T4 WNL, continue levothyroxine, reass ess as outpatient. HTN HLD LUTS Depression Attestations Medical Necessity Statement*: Continue admission for assessment management of acute encephalopathy, recurrent low-grade fevers and gentleman with immuno suppression, kidney transplant. Coding Level of Care Code Acute Clinical Unit Coordinator for Chg Fwd Diagnoses Acute encephalopathy G93.40 Acute kidney injury superimposed on CKD N17.9; N18.9 UTI (urinary tract infection) N39.0 Thrombocytopenia D69.6 Candidal intertrigo B37.2 Decubital ulcer L89.90 Generalized weakness R53.1 Multiple falls R29.6 Metastatic renal cell carcinoma C64.9 Kidney 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
[2021-12-16] VITALS (7 sets, daily range): BP systolic 127–168; BP diastolic 77–83; PULSE 72–88; RESP 12–17; TEMP 37.2–38.1; O2SAT 94–99
--- NOTE | 2021-12-16 00:17 | PC.NURSE ---
i reported high temp 100.5 to nurse
[2021-12-16] MEDS: piperacillin-tazobactam 3.375 GM in sodium chloride 0.9% (plus) 100 ML IV ×3 (01:07→20:04)
[2021-12-16] MEDS: vancomycin 1,000 MG in sodium chloride 0.9% 250 ML 250 MG IV (04:53)
[2021-12-16] MEDS: acetaminophen 325 mg Tablet 650 MG PO ×2 (05:00→11:32)
--- NOTE | 2021-12-16 05:37 | PC.NURSE ---
i reported high temp 100.4 to nurse
[2021-12-16 06:29] LABS: Basophils % 0.2 %; Eosinophils # 0.1 10^3/uL (0.0-0.8); Eosinophils % 0.9 %; Hemoglobin 7.6 g/dL (11.7-16.6); Lymphocytes # 1.9 10^3/uL (0.8-4.8); Lymphocytes % 23.8 %; Mean Corpuscular HGB Conc 29.2 g/dL (30.0-36.0); Mean Corpuscular Hemoglobin 33.3 pg (28.0-34.0); Mean Platelet Volume 10.8 fL (7.4-10.4); Monocytes # 0.7 10^3/uL (0.2-0.9); Monocytes % 8.8 %; Neutrophils # 5.35 10^3/uL (1.8-7.7); Neutrophils % 65.6 %; Nucleated Red Blood Cells % 0.4 %; Platelet Count 138 10^3/cmm (130-400); Red Blood Count 2.28 10^6/uL (4.1-5.3); White Blood Count 8.2 10^3/uL (4.0-10.0)
[2021-12-16 06:46] LABS: Alanine Aminotransferase < 5 U/L (0-41); Albumin Level 2.2 g/dL (3.5-5.2); Alkaline Phosphatase 67 IU/L (40-130); Aspartate Amino Transferase 13 U/L (0-40); Blood Urea Nitrogen 9 mg/dL (8-23); Calcium 8.8 mg/dL (8.5-10.5); Carbon Dioxide 15 mmol/L (22-29); Chloride 118 mmol/L (98-107); Globulin 3.3 g/dL (1.3-4.6); Glucose 132 mg/dL (65-115); Magnesium 1.5 mg/dL (1.7-2.3); Osmolality Calculated 299 mOsm/kg (285-295); Phosphorus 2.6 mg/dL (2.5-4.5); Sodium 144 mmol/L (136-145); Total Bilirubin 0.8 mg/dL (0.15-1.2); Total Protein 5.5 g/dL (6.6-8.7)
[2021-12-16 06:49] LABS: Anion Gap 14.2 (5-19); Potassium 3.2 mmol/L (3.5-5.1)
--- NOTE | 2021-12-16 10:41 | XR_ITS ---
WS: [id number] XR chest 1V portable [id number] REASON FOR EXAM: picc line placement verification FINDINGS: Nasogastric tube is in place with the tip at the level of the fundus of the stomach. A right arm PICC line has been placed. The tip is at the junction of the right innominate vein and wong perior vena cava and needs to be advanced 4 to 5 cm. This information was relayed to the PICC line team. Reticular and groundglass opacities in both lower lungs has not changed significantly compared to 12/14. No other interval change or new finding. XR/XR chest 1V portable [id number] IMPRESSION: PICC line placement as above.
[2021-12-16] MEDS: acyclovir 1,000 MG in sodium chloride 0.9% (100 ml) 100 ML 120 MG IV ×2 (11:18→21:51)
[2021-12-16] MEDS: levothyroxine 50 mcg Tablet PO (11:26)
[2021-12-16] MEDS: tacrolimus 0.5 mg Capsule 1 MG PO ×2 (11:26→20:15)
[2021-12-16] MEDS: pantoprazole DR 40 mg Tablet PO ×2 (11:27→17:32)
[2021-12-16] MEDS: predniSONE 5 mg Tablet PO (11:27)
[2021-12-16] MEDS: folic acid 1 mg Tablet PO ×2 (11:27→17:32)
[2021-12-16] MEDS: tamsulosin 0.4 mg Capsule PO (11:27)
[2021-12-16] MEDS: metoprolol tartrate 50 mg Tablet 75 MG PO ×2 (11:27→17:32)
[2021-12-16] MEDS: aspirin 81 mg EC Tablet PO (11:27)
[2021-12-16] MEDS: atorvastatin 40 mg Tablet PO (11:27)
[2021-12-16] MEDS: apixaban 5 mg Tablet PO ×2 (11:32→20:15)
[2021-12-16] MEDS: nystatin cream 30 gm 1 APPLIC TOPICAL ×2 (11:33→17:35)
[2021-12-16] MEDS: potassium chloride oral liq 20 mEq/15 mL UDC NG-TUBE (12:25)
--- NOTE | 2021-12-16 16:43 | PM.PN ---
Subjective Subjective: He is groggy but wakes up today. He is able to tell his name. He knows he is in the hospital. He reports he is hungry. He is generally weak. Denies pain or discomfort. Vitals/I&O/Wt Last Vital Signs Temp 98.9 F 12/16/21 15:58 Pulse 76 12/16/21 15:58 Resp 14 12/16/21 15:58 BP 136/82 12/16/21 15:58 Pulse Ox 97 12/16/21 15:58 12/16/21 12/16/21 12/16/21 06:59 14:59 22:59 Intake Total 1542.5 / 3436.25 177.5 / 177.5 100 / 277.5 Balance 1542.5 / 3436.25 177.5 / 177.5 100 / 277.5 Weight last 48 hrs Weight 96.207 kg Physical Exam Const: GENERAL APPEARANCE: lethargic; not cooperative ORIENTATION/CONSCIOUSNESS: Yes confused and Yes lethargic OTHER: Generally weak HENMT: COMMON NORMALS: normocephalic, EAC's normal, Normal external nose present and moist oral mucous membranes HEAD & SCALP: normocephalic NOSE: Normal external nose present EXTERNAL AUDITORY CANAL: EAC's normal OTHER: NGT Eye: PUPIL: Yes Other pupil findings (equal) Neck/C-Spine: COMMON NORMALS: no meningeal signs Chest: CHEST: Yes Symmetrical chest wall rise Resp: COMMON NORMALS: clear to auscultation bilaterally AUSCULTATION: clear to auscultation bilaterally OTHER: Not coughing Cardio: COMMON NORMALS: regular rate, regular rhythm and No murmurs present (Cardio) RATE: regular rate RHYTHM: regular rhythm GI: COMMON NORMALS: Normal to inspection, nondistended, normoactive bowel sounds present, Soft to palpation and non-tender PALPATION: Yes Soft to palpation Extremity: COMMON NORMALS: no pedal edema GENERAL: Yes edema (1+) Neuro: COMMON NORMALS: moves all extremities SENSORIUM/ORIENTATION: Yes lethargic MENINGEAL SIGNS: Yes no meningeal signs Psych: COMMON NORMALS: mental status grossly normal Skin: COMMON NORMALS: no wounds GENERAL SKIN EXAM: erythema (Buttocks, sacrum, groin, scrotum) RASHES: no rashes WOUNDS: Yes wounds noted (stage 1 sacral decub) Urinary Catheter Management: Quach: Cath Placed During This Visit: no Data : 12/16/21 Unknown 12/16/21 Unknown Micro: Microbiology 12/05/21 09:17 Ova and Parasite Concentrate Exam - Final Stool A&P Assessment and plan (1) Acute encephalopathy: Remains appropriate better. He wakes up. He is oriented to person, year. Tells me he is hungry. Otherwise not in discomfort or pain. Is generally weak. Somewhat somnolent, falls back asleep easily. Requested speech therapy assessment due to risk of aspiration. COVID-19 is n.p.o., trickle feeds via NGT. Unable to obtain spinal fluid analysis. On empiric antibiotic. Urine bacterial culture was without growth. On empiric acyclovir. Low grade fevers. Broadened with empiric caspofungin. Check procalcitonin. Tacrolimus level noted 12. Above target, and documentation indicating she be on 1 mg twice daily. Decreased dose. Antipsychotics on hold. Continue one-to-one sitter. Pending transfer to tertiary facility, on a waiting list, but not yet ready. Improving possible bronchitis, possible atypical pneumonia. Cough resolved. Doing well on room air. 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 Mild sinusitis. Is intolerant to Eliquis due to anemia and thrombocytopenia. Start aspirin 81 mg continue statin. May benefit from better blood pressure control long-term. No carotid artery stenosis on carotid duplex. With prolonged immobility, dehydration at risk for VTE, has transplanted kidney. Had dry cough. Abnormal D-dimer. VQ scan obtained, low probability of PE. Eliquis Status: Acute (2) Acute kidney injury superimposed on CKD: Improved. Nephrology assessment appreciated, with possibility of severe rejection in setting of complicated urinary tract infection. Continue treatment of infection. Gentle IVF. Trophic feeds. Tacrolimus level noted at 12 No obstructive uropathy on CT. No obvious pyelonephritis. Hold losartan. Requested records from [facility] where he was recently admitted. Status: Acute (3) UTI (urinary tract infection): Klebsiella in urine. Was on ceftriaxone, cefepime broadened with Zosyn. Should have completed course by now. Complicated UTI with acute encephalopathy on presentation and gentleman with immunosuppression, history of kidney transplantation. No obstructive uropathy or obvious pyelo on CT renal protocol. Status: Acute (4) Thrombocytopenia: Improved No suggestion of hemolysis. Status: Acute (5) Candidal intertrigo: Nystatin cream Status: Acute (6) Decubital ulcer: Possibly from prolonged immobilization. CK is normal. Reposition. Status: Acute (7) Generalized weakness: Mental status fluctuating. PT, OT assessment. He will need to return to SNF. Recently with generally weakness, failure to thrive, multiple falls. With metastatic renal cell carcinoma. Will need to resume follow-up with oncology. Details of his metastatic cancer is currently unknown, as well as prognosis or therapeutic plans and goals of care. He appears would want to continue treatment, although has not tolerated well, and his functional capacity has been declining. Status: Acute (8) Multiple falls: Status: Acute (9) Metastatic renal cell carcinoma: With recent pathologic spiral fracture of humerus. He reports was following with oncologist Dr. Greene in [place], although has not seen her in a while with his recent hospitalizations and halfway stays. Tells me he was diagnosed probably about 14 years ago with metastatic renal cancer, although he is somewhat hazy on the details. He tells me he has had nephrectomy, he thinks possibly bilateral. 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 He states more recently has been following up with Dr. Hart, he states is a autocad at [facility], who had him treated with an anticancer medication with which she was also having persistent diarrhea, although says that this medication was discontinued recently, he is not sure why. He has not so far yet followed up with Dr. Hart. He had been meaning to set an appointment for follow-up with all his providers after getting out from the halfway. Status: Acute (10) Kidney transplanted: Continue tacrolimus for now, check level. Continue prednisone. Status: Acute (11) Long-term current use of tacrolimus: Check level, continue tacrolimus for now. Status: Acute (12) Chronic steroid use: Continue prednisone. Monitor for symptoms of adrenal insufficiency. Status: Acute (13) Acute delirium: Status: Acute Plan Hypomagnesemia: Replace, follow-up level Hypokalemia: Replace Diarrhea: Negative C. difficile, stool culture, ordered parasites A. fib: Continue metoprolol, Eliquis Hypothyroidism: Mildly elevated TSH, free T4 WNL, continue levothyroxine, reassess as outpatient. HTN HLD LUTS Depression Attestations Medical Necessity Statement*: Continue admission versus management of acute encephalopathy with immunosuppression, kidney transplant. Coding Level of Care Code Acute Scarifier Operator for Chg Fwd Diagnoses Acute encephalopathy G93.40 Acute kidney injury superimposed on CKD N17.9; N18.9 UTI (urinary tract infection) N39.0 Thrombocytopenia D69.6 Candidal intertrigo B37.2 Decubital ulcer L89.90 Generalized weakness R53.1 Multiple falls R29.6 Metastatic renal cell carcinoma C64.9 Kidney 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
[2021-12-16] MEDS: magnesium sulfate premix 2 GM/50 ML PIGGYBACK IV (17:26)
[2021-12-16] MEDS: dextrose 5%-sod chloride 0.9% 1,000 ML 75 ML IV (17:35)
[2021-12-17] VITALS (8 sets, daily range): BP systolic 119–138; BP diastolic 69–76; PULSE 71–89; RESP 12–18; TEMP 37.2–37.7; O2SAT 96–97
[2021-12-17] MEDS: vancomycin 1,000 MG in sodium chloride 0.9% 250 ML 250 MG IV (01:10)
[2021-12-17 02:41] LABS: Basophils % 0.1 %; Eosinophils # 0.1 10^3/uL (0.0-0.8); Eosinophils % 1.3 %; Hematocrit 22.5 % (42.0-52.0); Hemoglobin 6.9 g/dL (11.7-16.6); Lymphocytes # 1.7 10^3/uL (0.8-4.8); Lymphocytes % 22.3 %; Mean Corpuscular HGB Conc 30.7 g/dL (30.0-36.0); Mean Corpuscular Hemoglobin 32.5 pg (28.0-34.0); Mean Corpuscular Volume 106.1 fl (80-94); Mean Platelet Volume 11.2 fL (7.4-10.4); Monocytes # 0.5 10^3/uL (0.2-0.9); Monocytes % 7.2 %; Neutrophils # 5.09 10^3/uL (1.8-7.7); Neutrophils % 68.2 %; Nucleated Red Blood Cells % 0 %; Platelet Count 143 10^3/cmm (130-400); Red Blood Count 2.12 10^6/uL (4.1-5.3); Red Cell Distribution Width 15.9 % (12.1-15.1); White Blood Count 7.5 10^3/uL (4.0-10.0)
[2021-12-17] MEDS: piperacillin-tazobactam 3.375 GM in sodium chloride 0.9% (plus) 100 ML IV (02:49)
[2021-12-17 03:05] LABS: Alanine Aminotransferase < 5 U/L (0-41); Albumin Level 2.2 g/dL (3.5-5.2); Alkaline Phosphatase 67 IU/L (40-130); Anion Gap 13.2 (5-19); Aspartate Amino Transferase 13 U/L (0-40); Blood Urea Nitrogen 9 mg/dL (8-23); Calcium 8.5 mg/dL (8.5-10.5); Carbon Dioxide 16 mmol/L (22-29); Chloride 120 mmol/L (98-107); Globulin 3.3 g/dL (1.3-4.6); Glucose 125 mg/dL (65-115); Magnesium 1.6 mg/dL (1.7-2.3); Osmolality Calculated 302 mOsm/kg (285-295); Phosphorus 2.5 mg/dL (2.5-4.5); Potassium 3.2 mmol/L (3.5-5.1); Sodium 146 mmol/L (136-145); Total Bilirubin 0.6 mg/dL (0.15-1.2); Total Protein 5.5 g/dL (6.6-8.7)
[2021-12-17 03:08] LABS: Procalcitonin 0.19 ng/mL (0-0.5)
[2021-12-17] MEDS: acyclovir 1,000 MG in sodium chloride 0.9% (100 ml) 100 ML 120 MG IV (03:47)
--- NOTE | 2021-12-17 05:07 | PC.NURSE ---
i reported high temp 99.9 to nurse
[2021-12-17] MEDS: dextrose 5%-sod chloride 0.9% 1,000 ML 75 ML IV (06:15)
[2021-12-17] MEDS: atorvastatin 40 mg Tablet PO (08:52)
[2021-12-17] MEDS: potassium chloride oral liq 20 mEq/15 mL UDC 40 MEQ PO (08:52)
[2021-12-17] MEDS: levothyroxine 50 mcg Tablet PO (08:53)
[2021-12-17] MEDS: aspirin 81 mg EC Tablet PO (08:53)
[2021-12-17] MEDS: pantoprazole DR 40 mg Tablet PO (08:53)
[2021-12-17] MEDS: metoprolol tartrate 50 mg Tablet 75 MG PO (08:53)
[2021-12-17] MEDS: tacrolimus 0.5 mg Capsule 1 MG PO (08:53)
[2021-12-17] MEDS: tamsulosin 0.4 mg Capsule PO (08:53)
[2021-12-17] MEDS: folic acid 1 mg Tablet PO (08:53)
[2021-12-17] MEDS: predniSONE 5 mg Tablet PO (08:53)
[2021-12-17] MEDS: magnesium sulfate premix 2 GM/50 ML PIGGYBACK IV (08:56)
[2021-12-17] MEDS: nystatin cream 30 gm 1 APPLIC TOPICAL (08:56)
--- NOTE | 2021-12-17 13:03 | PC.NURSE ---
RN called son,Esdras Coffey at 0730 to get verbal consent for transport to [facility] in [place].
--- NOTE | 2021-12-17 14:10 | PC.SOCIAL ---
IMM Updated Updated pt's family on IMM. No questions voiced. Provided pt a copy. Initialed, dated, & timed copy in chart.
--- NOTE | 2021-12-17 14:19 | P.TS_ITS ---
Transfer Summary Providers Date of Admission: 12/04/21 13:17 Date of Discharge/Transfer: 12/17/21 Attending Provider at Admission: Ralph Cortez Attending Provider at Transfer: Ralph Cortez Primary Care Provider: Jenni Mccullough DO Transfer Plans: Anticipated date of transfer: 12/17/21 . Diagnoses at Discharge Discharge Diagnosis (1) Acute encephalopathy: Status: Acute (2) Acute kidney injury superimposed on CKD: Status: Acute (3) UTI (urinary tract infection): Status: Acute (4) Thrombocytopenia: Status: Acute (5) Candidal intertrigo: Status: Acute (6) Decubital ulcer: Status: Acute (7) Generalized weakness: Status: Acute (8) Multiple falls: Status: Acute (9) Metastatic renal cell carcinoma: Status: Acute (10) Kidney transplanted: Status: Acute (11) Long-term current use of tacrolimus: Status: Acute (12) Chronic steroid use: Status: Acute (13) Acute delirium: Status: Acute Reason for Visit Reason for Visit FAILURE TO THRIVE Hospital Course Hospital Course Pleasant 76-year-old gentleman with history of metastatic renal cell carcinoma, status post nephrectomy, status post kidney transplant, on tacrolimus, prednisone, was transiently also on treatment for RCC with cabozantinib, but this has been discontinued recently by his oncologist, with functional decline recently, with falls, pathological spiral fracture of the right humerus, chronic diarrhea, A. fib on anticoagulation, HTN, HLD, CKD was discharged from rehabilitation from SNF (reported at his request) on 12/02, subsequently at home with generalized weakness, reported spending prolonged periods of time on the floor unable to get up, eventually found by someone sent by his son. On presentation with acute encephalopathy, UTI, eventually growing Klebsiella, candidal intertrigo, initially treated with nystatin cream, subsequently caspofungin as well, CASPER, creatinine is high as 2, with gradual improvement, with consideration of CASPER possibly related to infection. With dry cough and presentation, with unremarkable chest x-ray, initially on ceftriaxone with consideration of possible bronchitis, subsequently with present empiric antibiotic coverage some intermittent persistent dry cough. Repeat chest x-ray with some groundglass opacities in both lower lungs. Oxygen saturation 97% on room air, has not required any oxygen supplementation. VQ scan with low probability of PE. CTA chest with abdomen and pelvis: 1. No evidence of pulmonary embolus. 2. Moderate RIGHT greater than LEFT pleural effusions with atelectasis in the lung bases. Diffuse interstitial edema. 3. Masslike RIGHT greater than LEFT lymphadenopathy suspicious for metastatic disease versus primary bronchogenic carcinoma. 4. Multiple bilateral pulmonary nodules suspicious for metastatic disease described above. 5. Renal pelvic transplant in the RIGHT lower quadrant. Prior RIGHT nephrectomy. 6. No adenopathy in the abdomen or pelvis. 7. Enlarged prostate measuring 4.7 CM. Correlation PSA. 8. Lytic lesion posterior T5 vertebral body suspicious for metastatic disease. With waxing and waning mental status, but gradually worsening. Hyperactive delirium initially, transiently on antipsychotics, but withheld now several days as he has been instead hypoactive. It was not clear whether he has been taking his medications correctly at home. Tacrolimus level has been requested, eventually came back at 12.3. Dose for now decreased to 1 mg twice daily from 2 mg twice daily as he had indicated was taking before. During hospitalization also with transient thrombocytopenia, platelets came down as low as 62,000, but have since recovered to low normal levels. With anemia, today requiring RBC transfusion with hemoglobin of 6.9. Eliquis temporarily held today, although Hemoccult previously negative. Blood cultures repeatedly negative from 12/04, 12/09. With chronic diarrhea, additionally assessed with C. difficile which was negative, and with negative bacterial and parasite studies. Coronavirus PCR negative. Influenza PCR negative. Initially on ceftriaxone for UTI, antibiotic coverage broadened to Zosyn, vancomycin. More recently covered also broadened with caspofungin. Galactomannan negative. Viral serologies with elevated CMV IgG, normal IgM. EBV IgG, normal IgM. Elevated EBV nuclear antigen. Elevated HSV 1 IgG. Lumbar puncture attempted twice, but unable to obtain sample dry tap. Empirically also on acyclovir. Procalcitonin initially with some elevation of 0.51, today 0.19. TSH initially with minimal elevation 4.33, but with normal free T4, and subsequently TSH 1.3, not likely contributing to his condition although may benefit from outpatient follow-up. Random cortisol 8.26 with continued prednisone 5mg daily. Received replacement of hypomagnesemia, hypokalemia. ESR 7. CRP elevated, but high-sensitivity study. B12 normal. Folic acid mildly low at 3.6, receiving supplementation. To assess for metastatic disease, PRES with tacrolimus, or other causes of encephalopathy was assessed by MRI of the brain, but not seen. On MRI noted tiny right parietal lobe subacute infarction, sinusitis, no other major findings although on noncontrast study. 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 No obvious seizure-like activity, but empirically continued on Keppra 500 mg twice daily in case of complex partial seizure. EEG was requested. Carotid Doppler with moderate subocclusive mixed echogenicity Plaque on R, mild on, no occlusion or stenosis. NGT was placed to allow for tube feeds, medications. Mental status with mild improvement, able to tell he is in the hospital, able to fill the year, but comes and goes and otherwise not lucid. Lethargic most of the time. Accepted for further assessment and management at tertiary facility at [facility] where he was previously receiving care with transplantation team. HTN HLD LUTS Depression Sacral decub Will likely need penitentiary after discharge. Physical Exam Const: GENERAL APPEARANCE: lethargic; not cooperative ORIENTATION/CONSCIOUSNESS: Yes confused and Yes lethargic OTHER: Generally weak HENMT: COMMON NORMALS: normocephalic, EAC's normal, Normal external nose present and moist oral mucous membranes HEAD & SCALP: normocephalic NOSE: Normal external nose present EXTERNAL AUDITORY CANAL: EAC's normal OTHER: NGT Eye: PUPIL: Yes Other pupil findings (equal) Neck/C-Spine: COMMON NORMALS: no meningeal signs Chest: CHEST: Yes Symmetrical chest wall rise Resp: COMMON NORMALS: clear to auscultation bilaterally AUSCULTATION: clear to auscultation bilaterally OTHER: Mild interm dry cough Cardio: COMMON NORMALS: regular rate, regular rhythm and No murmurs present (Cardio) RATE: regular rate RHYTHM: regular rhythm GI: COMMON NORMALS: Normal to inspection, nondistended, normoactive bowel sounds present, Soft to palpation and non-tender PALPATION: Yes Soft to palpation Extremity: COMMON NORMALS: no pedal edema Neuro: COMMON NORMALS: moves all extremities SENSORIUM/ORIENTATION: Yes lethargic MENINGEAL SIGNS: Yes no meningeal signs Skin: COMMON NORMALS: no wounds GENERAL SKIN EXAM: erythema (Buttocks, sacrum, groin, scrotum) RASHES: no rashes WOUNDS: Yes wounds noted (stage 1 sacral decub) Urinary Catheter Management: Quach: Cath Placed During This Visit: yes Reason for Continuing Indwelling Catheter: Assist healing open wound Urinary Catheter Date of Insertion: 12/16/21 Urinary Catheter Time of Insertion: 13:30 TS Data Studies Completed and Pending Pending at discharge Category Date Time Status EEG electroencephalogram Routine Exams 12/10/21 08:27 Ordered Complete Blood Count w/Auto AM LABS Lab 12/18/21 04:00 Ordered Complete Blood Count w/Auto AM LABS Lab 12/19/21 04:00 Ordered Complete Blood Count w/Auto AM LABS Lab 12/20/21 04:00 Ordered Comprehensive Metabolic Panel AM LABS Lab 12/18/21 04:00 Ordered Comprehensive Metabolic Panel AM LABS Lab 12/19/21 04:00 Ordered Comprehensive Metabolic Panel AM LABS Lab 12/20/21 04:00 Ordered Sputum Culture and Gram Stain Stat Lab 12/09/21 11:05 Uncollected Vancomycin Trough Timed Lab 12/18/21 01:00 Ordered Labs from last 24 hours 12/17/21 12/17/21 12/17/21 08:33 02:00 02:00 WBC RBC Hgb Hct MCV MCH MCHC RDW Plt Count MPV Neut % (Auto) Lymph % (Auto) [place] % (Auto) Eos % (Auto) Baso % (Auto) Neut # (Auto) Lymph # (Auto) [place] # (Auto) Eos # (Auto) Baso # (Auto) Nucleated RBC % (auto) Nucleated RBCs # Sodium 146 H Potassium 3.2 L Chloride 120 H Carbon Dioxide 16 L Anion Gap 13.2 BUN 9 Creatinine 0.8 GFR Calculation Not Reportable Glucose 125 H Calculated Osmolality 302 H Calcium 8.5 Phosphorus 2.5 Magnesium 1.6 L Total Bilirubin 0.6 AST 13 ALT < 5 Alkaline Phosphatase 67 Total Protein 5.5 L Albumin 2.2 L Globulin 3.3 Procalcitonin 0.19 Blood Type A Negative Rho(D) Type Negative Antibody Screen Negative Crossmatch See Detail 12/17/21 02:00 WBC 7.5 RBC 2.12 L Hgb 6.9 L Hct 22.5 L MCV 106.1 H D MCH 32.5 MCHC 30.7 D RDW 15.9 H Plt Count 143 MPV 11.2 H Neut % (Auto) 68.2 Lymph % (Auto) 22.3 [place] % (Auto) 7.2 Eos % (Auto) 1.3 Baso % (Auto) 0.1 Neut # (Auto) 5.09 Lymph # (Auto) 1.7 [place] # (Auto) 0.5 Eos # (Auto) 0.1 Baso # (Auto) 0.0 Nucleated RBC % (auto) 0 Nucleated RBCs # 0.0 Sodium Potassium Chloride Carbon Dioxide Anion Gap BUN Creatinine GFR Calculation Glucose Calculated Osmolality Calcium Phosphorus Magnesium Total Bilirubin AST ALT Alkaline Phosphatase Total Protein Albumin Globulin Procalcitonin Blood Type Rho(D) Type Antibody Screen Crossmatch Completed Studies During Hospitalization Category Date Time Status CT angio chest w abd pel w con Routine Cat Scan 12/09/21 11:[address] head wo con* [id number] Routine Cat Scan 12/14/21 13:[address] head wo con* [id number] Stat Cat Scan 12/10/21 08:[address] head wo con* [id number] Urgent Cat Scan 12/04/21 11:[address] kidney stone [id number] Routine Cat Scan 12/04/21 16:55 Completed CXRP [XR chest 1V portable [id number]] Stat Exams 12/14/21 11:15 Completed FL guided lumbarpunc dx* [id number] Routine Exams 12/10/21 11:05 Completed Fluoro guided lumbar puncture [FL guided lumbarpunc dx* Exams 12/11/21 09:23 Completed [id number]] Routine XR chest 1V portable [id number] Stat Exams 12/16/21 10:41 Completed XR chest 1V portable [id number] Urgent Exams 12/04/21 11:06 Completed OVA and Parasites, Conc and PE Routine Lab 12/05/21 09:17 Completed MR head wo con* [id number] Routine MRI 12/05/21 11:30 Completed NM pulmonary ventilation and perfusion [NM pul vent and Nuc Med 12/05/21 09:27 Completed perfus* [id number]] Routine CV carotid duplex BI* [id number] Routine Ultrasound 12/06/21 16:21 Completed Laboratory Last Values WBC 7.5 10^3/uL (4.0-10.0) 12/17/21 02:00 RBC 2.12 10^6/uL (4.1-5.3) L 12/17/21 02:00 Hgb 6.9 g/dL (11.7-16.6) L 12/17/21 02:00 Hct 22.5 % (42.0-52.0) L 12/17/21 02:00 MCV 106.1 fl (80-94) H D 12/17/21 02:00 MCH 32.5 pg (28.0-34.0) 12/17/21 02:00 MCHC 30.7 g/dL (30.0-36.0) D 12/17/21 02:00 RDW 15.9 % (12.1-15.1) H 12/17/21 02:00 Plt Count 143 10^3/cmm (130-400) 12/17/21 02:00 MPV 11.2 fL (7.4-10.4) H 12/17/21 02:00 Neut % (Auto) 68.2 % 12/17/21 02:00 Lymph % (Auto) 22.3 % 12/17/21 02:00 [place] % (Auto) 7.2 % 12/17/21 02:00 Eos % (Auto) 1.3 % 12/17/21 02:00 Baso % (Auto) 0.1 % 12/17/21 02:00 Neut # (Auto) 5.09 10^3/uL (1.8-7.7) 12/17/21 02:00 Lymph # (Auto) 1.7 10^3/uL (0.8-4.8) 12/17/21 02:00 [place] # (Auto) 0.5 10^3/uL (0.2-0.9) 12/17/21 02:00 Eos # (Auto) 0.1 10^3/uL (0.0-0.8) 12/17/21 02:00 Baso # (Auto) 0.0 10^3/uL (0.0-0.1) 12/17/21 02:00 Nucleated RBC % (auto) 0 % 12/17/21 02:00 Nucleated RBCs # 0.0 /100WBC 12/17/21 02:00 ESR 7 mm/hr (0-10) 12/09/21 08:16 Haptoglobin 114.0 mg/L (30-200) 12/05/21 05:10 PT 15.70 SECONDS (12.1-14.9) H 12/10/21 03:45 INR 1.22 (0.8-1.2) H 12/10/21 03:45 D-Dimer 3.49 ug/mIFEU (0-0.59) H 12/04/21 11:52 Sodium 146 mmol/L (136-145) H 12/17/21 02:00 Potassium 3.2 mmol/L (3.5-5.1) L 12/17/21 02:00 Chloride 120 mmol/L (98-107) H 12/17/21 02:00 Carbon Dioxide 16 mmol/L (22-29) L 12/17/21 02:00 Anion Gap 13.2 (5-19) 12/17/21 02:00 BUN 9 mg/dL (8-23) 12/17/21 02:00 Creatinine 0.8 mg/dL (0.7-1.2) 12/17/21 02:00 GFR Calculation Not Reportable 12/17/21 02:00 Glucose 125 mg/dL (65-115) H 12/17/21 02:00 Calculated Osmolality 302 mOsm/kg (285-295) H 12/17/21 02:00 Uric Acid 10.0 mg/dL (3.4-7.0) H 12/05/21 05:10 Calcium 8.5 mg/dL (8.5-10.5) 12/17/21 02:00 Phosphorus 2.5 mg/dL (2.5-4.5) 12/17/21 02:00 Magnesium 1.6 mg/dL (1.7-2.3) L 12/17/21 02:00 Iron 47 ug/dL (59-158) L 12/09/21 08:16 Iron Cancelled 12/09/21 08:16 TIBC 163 mcg/dl 12/09/21 08:16 % Saturation 28.8 % (20-50) 12/09/21 08:16 Unsat Iron Binding 116 ug/dL (112-347) 12/09/21 08:16 Ferritin 830 ng/mL (30-400) H 12/09/21 08:16 Total Bilirubin 0.6 mg/dL (0.15-1.2) 12/17/21 02:00 AST 13 U/L (0-40) 12/17/21 02:00 ALT < 5 U/L (0-41) 12/17/21 02:00 Alkaline Phosphatase 67 IU/L (40-130) 12/17/21 02:00 Lactate Dehydrogenase 213 U/L (135-225) 12/05/21 05:10 Creatine Kinase 17 U/L (39-308) L 12/12/21 04:28 Troponin T Baseline 55 ng/L (0-15) H 12/04/21 11:52 Troponin T 120 Minute 55.20 ng/L (0-15) H 12/04/21 14:00 Delta Troponin T 0.20 ABS# (0-10) 12/04/21 14:00 Troponin T Hi Sens 6Hr 67.33 ng/L (0-15) H 12/04/21 17:50 Troponin T Hi Sens 6Hr Delta 12.33 ng/L (0-12) H* 12/04/21 17:50 C-Reactive Protein 13.0 mg/L (0.0-4.9) H 12/12/21 04:28 NT-Pro-B Natriuret Pep 4790 pg/mL (0-450) H 12/12/21 04:28 Total Protein 5.5 g/dL (6.6-8.7) L 12/17/21 02:00 Albumin 2.2 g/dL (3.5-5.2) L 12/17/21 02:00 Globulin 3.3 g/dL (1.3-4.6) 12/17/21 02:00 Lipase 12 U/L (13-60) L 12/04/21 11:52 Vitamin B12 335 pg/mL (232-1245) 12/09/21 08:16 Folate 3.6 ng/mL (4.5-32.2) L 12/09/21 08:16 Procalcitonin 0.19 ng/mL (0-0.5) 12/17/21 02:00 TSH 1.30 uIU/mL (0.27-4.20) 12/10/21 03:45 Free T4 1.18 ng/dL (0.82-1.77) 12/05/21 05:10 Random Cortisol 8.26 ug/dL (2.47-19.5) 12/09/21 08:16 Urine Color Dark yellow (Yellow) 12/05/21 18:50 Urine Appearance Sl hazy (CLEAR) 12/05/21 18:50 Urine pH 5 (5-7) 12/05/21 18:50 Ur Specific [place] 1.020 (1.005-1.030) 12/05/21 18:50 Urine Protein 1+ (Negative) H 12/05/21 18:50 Urine Glucose (UA) Norm (Normal) 12/05/21 18:50 Urine Ketones Negative (Negative) 12/05/21 18:50 Urine Blood 3+ (Negative) H 12/05/21 18:50 Urine Nitrate Negative (Negative) 12/05/21 18:50 Urine Bilirubin Neg (Negative) 12/05/21 18:50 Urine Urobilinogen Norm mg/dL (Negative) 12/05/21 18:50 Ur Leukocyte Esterase 1+ (Negative) H 12/05/21 18:50 Urine RBC 0-4 /hpf (0-2) H 12/05/21 18:50 Urine WBC 15-25 /hpf (0-5) H 12/05/21 18:50 Ur Squamous Epith Cells 0-4 /hpf (0-5) H 12/05/21 18:50 Ur Transition Epith Cell 0-4 /hpf 12/05/21 18:50 Ur Renal Epithelial Cell 0 /hpf 12/05/21 18:50 Amorphous Sediment Not Reportable 12/05/21 18:50 Urine Bacteria 3+ /hpf (NONE) H 12/05/21 18:50 Urine Mucus 1+ /hpf 12/05/21 18:50 Ur Random Sodium 36 mmol/L 12/05/21 18:50 Urine Creatinine 205 mg/dL (39-259) 12/05/21 18:50 Nasal Influ A H1 2008 PCR Not detected (NOT DETECT) 12/04/21 13:21 Vancomycin Trough 21.0 ug/mL (10-15) H 12/14/21 13:02 Tacrolimus (FK 506) 12.3 mcg/L 12/05/21 10:40 ANCA Screen Negative (NEGATIVE) 12/05/21 10:40 ANCA Titer Not Reportable 12/05/21 10:40 Coronavirus 229E (PCR) Not detected (NOT DETECT) 12/04/21 13:21 CMV IgG Ab >10.00 U/mL H 12/10/21 11:38 CMV IgM Ab <30.00 AU/mL 12/10/21 11:38 EBV IgG Ab >750.00 U/mL H 12/10/21 11:38 EBV IgM Ab <36.00 U/mL 12/10/21 11:38 EBV Nuclear Antigen >600.00 U/mL H 12/10/21 11:38 EBV Interpretation See note 12/10/21 11:38 HSV I IgG Ab 18.60 index H 12/10/21 11:38 HSV II IgG <0.90 index 12/10/21 11:38 Influenza A (H1) PCR Not detected (NOT DETECT) 12/04/21 13:21 Influenza A (H3) PCR Not detected (NOT DETECT) 12/04/21 13:21 Influenza Type A Ag Cancelled 12/04/21 13:21 Influenza Type A (PCR) Not detected (NOT DETECT) 12/04/21 13:21 Influenza Type B Ag Cancelled 12/04/21 13:21 Influenza Type B (PCR) Not detected (NOT DETECT) 12/04/21 13:21 A. galactomannan Ag EIA Not detected 12/10/21 11:38 A. galactomannan Ag Idx <0.50 12/10/21 11:38 SARS-CoV-2 (PCR) Not detected (NOT DETECT) 12/04/21 13:21 Blood Type A Negative 12/17/21 08:33 Rho(D) Type Negative 12/17/21 08:33 Antibody Screen Negative 12/17/21 08:33 Crossmatch See Detail 12/17/21 08:33 Radiology Impressions Abdomen/Pelvis CT 12/04/21 16:55 IMPRESSION: 1. Right lower lobe soft tissue mass of unclear etiology follow-up exam is recommended 2. Bilateral lower lobe pleural effusions. 3. Status post right nephrectomy. 4. Atrophic left kidney . 5. Renal transplant in the right pelvis with a 5 mm caliceal stone Pulmonary Perfusion Imaging 12/05/21 09:27 IMPRESSION: Low probability pulmonary embolism. Head MRI 12/05/21 11:30 IMPRESSION: 1. Tiny right parietal lobe subacute infarction. 2. Mild sinusitis. Carotid Doppler Study 12/06/21 16:21 IMPRESSION: No carotid arterial stenosis. REFERENCES: SRU CRITERIA. The degree of internal carotid artery stenosis is based on criteria defined by the Society of Radiologists in Ultrasound (SRU). Normal is no stenosis. Mild is less than 50% stenosis. Moderate is 50-69% stenosis. Severe is greater than 69% stenosis to near occlusion. Near occlusion is a markedly narrowed lumen. Total occlusion is no detectable patent lumen. Chest/Abdomen/Pelvis CT 12/09/21 11:11 IMPRESSION: 1. No evidence of pulmonary embolus. 2. Moderate RIGHT greater than LEFT pleural effusions with atelectasis in the lung bases. Diffuse interstitial edema. 3. Masslike RIGHT greater than LEFT lymphadenopathy suspicious for metastatic disease versus primary bronchogenic carcinoma. 4. Multiple bilateral pulmonary nodules suspicious for metastatic disease described above. 5. Renal pelvic transplant in the RIGHT lower quadrant. Prior RIGHT nephrectomy. 6. No adenopathy in the abdomen or pelvis. 7. Enlarged prostate measuring 4.7 CM. Correlation PSA. 8. Lytic lesion posterior T5 vertebral body suspicious for metastatic disease. Notified Marcus Williamson MD at 12/09/2021 2:11 PM. Lumbar Puncture Fluoroscopy 12/11/21 09:23 IMPRESSION: Unsuccessful lumbar puncture attempt. The needle was in the thecal sac. There is a small flash of CSF replaced quickly replaced by a small amount of blood. Attempt terminated after several attempts at achieving adequate CSF. Notified Marcus Williamson MD at 12/11/2021 11:[address] 12/14/21 13:13 IMPRESSION: Negative for intracranial hemorrhage or mass effect Chest X-Ray 12/16/21 10:41 IMPRESSION: PICC line placement as above. Recent Clincial Data Last Vital Signs Temp 99.2 F 12/17/21 12:00 Pulse 73 12/17/21 12:00 Resp 18 12/17/21 11:39 BP 119/72 12/17/21 12:00 Pulse Ox 97 12/17/21 11:50 Vital Signs Temp Pulse Resp BP Pulse Ox 12/17/21 12:00 99.2 F 73 119/72 12/17/21 11:50 99.2 F 73 119/72 97 12/17/21 11:39 99 F 71 18 131/71 96 12/17/21 11:20 99.2 F 73 119/72 97 12/17/21 08:00 86 16 96 12/17/21 07:34 98.9 F 86 12 96 12/17/21 04:00 99.9 F H 89 16 137/69 97 Intake & Output/Weight 12/15/21 12/16/21 12/17/21 12/18/21 06:59 06:59 06:59 06:59 Intake Total 3220 / 3220 3436.25 / 3436.25 2217.5 / 2217.5 50 / 50 Balance 3220 / 3220 3436.25 / 3436.25 2217.5 / 2217.5 50 / 50 Weight 96.207 kg Vitals Last Vital Signs Temp 99.2 F 12/17/21 12:00 Pulse 73 12/17/21 12:00 Resp 18 12/17/21 11:39 BP 119/72 12/17/21 12:00 Pulse Ox 97 12/17/21 11:50 TS Medications Medications Acetaminophen (Acetaminophen 325 Mg Tablet) 650 mg PO Q6H PRN PRN Reason: MILD PAIN Last Admin: 12/16/21 11:32 Dose: 650 mg Documented by: Acetaminophen (Acetaminophen 650 Mg Supp) 650 mg NH ONCE PRN PRN Reason: temp Last Admin: 12/14/21 05:00 Dose: 650 mg Documented by: Albuterol Sulfate (Albuterol 2.5 Mg/0.5 Ml Neb) 2.5 mg INHALATION Q6H.RESPIRATORY PRN PRN Reason: SHORTNESS OF BREATH Apixaban (Apixaban 5 Mg Tablet) 5 mg PO BID@0900,2100 [facility] Last Admin: 12/17/21 09:11 Dose: Not Given Documented by: Aspirin (Aspirin 81 Mg Ec Tablet) 81 mg PO DAILY [facility] Last Admin: 12/17/21 08:53 Dose: 81 mg Documented by: Atorvastatin Calcium (Atorvastatin 40 Mg Tablet) 40 mg PO DAILY [facility] Last Admin: 12/17/21 08:52 Dose: 40 mg Documented by: Folic Acid (Folic Acid 1 Mg Tablet) 1 mg PO BID [facility] Last Admin: 12/17/21 08:53 Dose: 1 mg Documented by: Guaifenesin/Dextromethorphan (Guaifenesin-Dextromethorphan Udc 10 Ml) 5 ml PO Q4H PRN PRN Reason: COUGH Hydralazine HCl (Hydralazine 20 Mg/Ml Inj 1 Ml) 5 mg IVP Q4H PRN PRN Reason: HYPERTENSION Acyclovir 1,000 mg/ Sodium (Chloride) 120 mls @ 120 mls/hr IV Q8H [facility] Last Infusion: 12/17/21 04:47 Dose: Infused Documented by: Piperacillin Sod/Tazobactam (Sod 3.375 gm/ Sodium Chloride) 100 mls @ 25 mls/hr IV Q8H [facility]; Protocol Last Infusion: 12/17/21 06:49 Dose: Infused Documented by: Dextrose/Sodium Chloride (Dextrose 5%-Sod Chloride 0.9%) 1,000 mls @ 75 mls/hr IV .[id number] [facility] Last Admin: 12/17/21 06:15 Dose: 75 mls/hr Documented by: Vancomycin HCl 1,000 mg/ (Sodium Chloride) 250 mls @ 250 mls/hr IV Q24H [facility] Last Infusion: 12/17/21 02:10 Dose: Infused Documented by: Caspofungin 50 mg/ Sodium (Chloride) 250 mls @ 250 mls/hr IV Q24H [facility] Last Infusion: 12/16/21 23:59 Dose: Infused Documented by: Lanolin (Lanolin Oint 7 Gm) 1 applic TOPICAL PRN PRN PRN Reason: DRYNESS Levetiracetam (Levetiracetam Oral Liquid 100 Mg/Ml (Ml)) 500 mg PO Q12H [facility] Last Admin: 12/17/21 09:47 Dose: 500 mg Documented by: Levothyroxine Sodium (Levothyroxine 50 Mcg Tablet) 50 mcg PO DAILY [facility] Last Admin: 12/17/21 08:53 Dose: 50 mcg Documented by: Metoprolol Tartrate (Metoprolol Tartrate 50 Mg Tablet) 75 mg PO BID [facility] Last Admin: 12/17/21 08:53 Dose: 75 mg Documented by: Non-Formulary Medication (Levalbuterol Tartrate) 2 inh INHALATION Q6H [facility] Last Admin: 12/17/21 04:49 Dose: Not Given Documented by: Nystatin (Nystatin Cream 30 Gm) 1 applic TOPICAL BID [facility] Last Admin: 12/17/21 08:56 Dose: 1 applic Documented by: Olanzapine (Olanzapine 5 Mg Tablet) 5 mg PO Q12H [facility] Last Admin: 12/13/21 15:17 Dose: Not Given Documented by: Ondansetron HCl (Ondansetron 2 Mg/Ml Sdv 2 Ml) 4 mg IVP Q8H PRN PRN Reason: vomiting, or N/V if npo Pantoprazole Sodium (Pantoprazole Dr 40 Mg Tablet) 40 mg PO BID [facility] Last Admin: 12/17/21 08:53 Dose: 40 mg Documented by: Prednisone (Prednisone 5 Mg Tablet) 5 mg PO DAILY [facility] Last Admin: 12/17/21 08:53 Dose: 5 mg Documented by: Sucralfate (Sucralfate 1 Gm Tablet) 1 gm PO AC&BEDTIME [facility] Last Admin: 12/17/21 12:05 Dose: Not Given Documented by: Tacrolimus (Tacrolimus 0.5 Mg Capsule) 1 mg PO Q12H [facility] Last Admin: 12/17/21 08:53 Dose: 1 mg Documented by: Tamsulosin HCl (Tamsulosin 0.4 Mg Capsule) 0.4 mg PO DAILY [facility] Last Admin: 12/17/21 08:53 Dose: 0.4 mg Documented by: Ziprasidone (Ziprasidone 20 Mg/Ml Sdv) 10 mg IM NOW PRN PRN Reason: pull IV Last Admin: 12/13/21 04:18 Dose: 10 mg Documented by: Discontinued Medications Apixaban (Apixaban 5 Mg Tablet) 5 mg PO BID [facility] Last Admin: 12/05/21 08:20 Dose: 5 mg Documented by: Apixaban (Apixaban 5 Mg Tablet) 2.5 mg PO BID [facility] Last Admin: 12/06/21 08:30 Dose: 2.5 mg Documented by: Apixaban (Apixaban 5 Mg Tablet) 2.5 mg PO BID@0900,2100 [facility] Aspirin (Aspirin 81 Mg Ec Tablet) 81 mg PO DAILY [facility] Last Admin: 12/09/21 11:56 Dose: Not Given Documented by: Aspirin (Aspirin 81 Mg Ec Tablet) 81 mg PO DAILY [facility] Azithromycin (Azithromycin 250 Mg Tablet) 500 mg PO DAILY [facility] Last Admin: 12/09/21 11:56 Dose: Not Given Documented by: Ceftriaxone Sodium (Ceftriaxone 1,000 Mg Sdv) Confirm Administered Dose 1,000 mg .ROUTE .STK-MED ONE Stop: 12/08/21 11:57 Last Admin: 12/08/21 12:57 Dose: Not Given Documented by: Enoxaparin Sodium (Enoxaparin 40 Mg/0.4 Ml Syringe) 40 mg SUBCUT ONCE ONE Stop: 12/12/21 12:01 Last Admin: 12/12/21 11:49 Dose: 40 mg Documented by: Famotidine (Famotidine 20 Mg Tablet) 20 mg PO BID [facility] Last Admin: 12/08/21 17:12 Dose: 20 mg Documented by: Furosemide (Furosemide 10 Mg/Ml Sdv 4ml) 40 mg IVP ONCE ONE Stop: 12/10/21 07:54 Last Admin: 12/10/21 08:38 Dose: 40 mg Documented by: Furosemide (Furosemide 10 Mg/Ml Sdv 4ml) 40 mg IVP ONCE ONE Stop: 12/11/21 08:23 Last Admin: 12/11/21 10:47 Dose: Not Given Documented by: Furosemide (Furosemide 10 Mg/Ml Sdv 4ml) 40 mg IVP ONCE ONE Stop: 12/11/21 10:46 Last Admin: 12/11/21 11:45 Dose: 40 mg Documented by: Heparin Sodium (Porcine) (Heparin 5,000 Unit/Ml Inj 1 Ml) 5,000 unit SUBCUT Q8H [facility] Last Admin: 12/09/21 05:21 Dose: 5,000 unit Documented by: Sodium Chloride (Sodium Chloride 0.9%) 500 mls @ 500 mls/hr IV ONCE ONE Stop: 12/04/21 12:17 Last Infusion: 12/04/21 13:15 Dose: Infused Documented by: Sodium Chloride (Sodium Chloride 0.9%) 1,000 mls @ 100 mls/hr IV .Q10H [facility] Last Admin: 12/04/21 13:45 Dose: 100 mls/hr Documented by: Ceftriaxone Sodium 1,000 mg/ (Sodium Chloride) 50 mls @ 100 mls/hr IV ONCE ONE; Protocol Stop: 12/04/21 14:07 Last Admin: 12/04/21 13:41 Dose: 100 mls/hr Documented by: Ceftriaxone Sodium 1,000 mg/ (Sodium Chloride) 50 mls @ 100 mls/hr IV Q24H [facility]; Protocol Last Infusion: 12/09/21 11:07 Dose: Infused Documented by: Sodium Chloride (Sodium Chloride 0.9%) 1,000 mls @ 75 mls/hr IV .[id number] [facility] Last Admin: 12/06/21 16:08 Dose: Not Given Documented by: Azithromycin 500 mg/ Sodium (Chloride) 250 mls @ 250 mls/hr IV Q24H [facility]; Protocol Last Infusion: 12/09/21 09:53 Dose: Infused Documented by: Lactated Ringer's (Lactated Ringers) 1,000 mls @ 500 mls/hr IV .Q2H ONE Stop: 12/05/21 11:59 Last Infusion: 12/05/21 13:00 Dose: Infused Documented by: Magnesium Sulfate (Magnesium Sulfate Premix) 4 gm in 100 mls @ 50 mls/hr IV ONCE ONE Stop: 12/09/21 10:29 Last Infusion: 12/09/21 14:45 Dose: Infused Documented by: Vancomycin HCl / Sodium (Chloride) 250 mls @ 0 mls/hr [id number] PROTOCOL [facility]; Protocol Piperacillin Sod/Tazobactam (Sod 3.375 gm/ Sodium Chloride) 50 mls @ 12.5 mls/hr IV Q8H [facility]; Protocol Last Infusion: 12/13/21 18:52 Dose: Infused Documented by: Vancomycin/PEG/NADA/Lysine/Water (Vancocin) 1,250 mg in 250 mls @ 200 mls/hr IV Q12H [facility] Last Admin: 12/09/21 14:43 Dose: Not Given Documented by: Sodium Chloride (Sodium Chloride 0.9%) 1,000 mls @ 50 mls/hr IV .Q20H [facility] Last Infusion: 12/13/21 18:52 Dose: Infused Documented by: Vancomycin/PEG/NADA/Lysine/Water (Vancocin) 1,250 mg in 250 mls @ 200 mls/hr IV Q12H [facility] Last Admin: 12/11/21 02:52 Dose: Not Given Documented by: Sodium Chloride (Sodium Chloride 0.9% (100 Ml)) Confirm Administered Dose 100 mls @ as directed .ROUTE .STK-MED ONE Stop: 12/09/21 16:12 Last Infusion: 12/09/21 19:37 Dose: Infused Documented by: Vancomycin/PEG/NADA/Lysine/Water (Vancocin) 1,250 mg in 250 mls @ 200 mls/hr IV Q18H [facility] Last Admin: 12/13/21 18:51 Dose: Not Given Documented by: Levetiracetam 1,000 mg/ Sodium (Chloride) 110 mls @ 440 mls/hr IV ONCE ONE Stop: 12/11/21 11:44 Last Infusion: 12/11/21 13:32 Dose: Infused Documented by: Potassium Phosphate 40 meq/ (Sodium Chloride) 109.0909 mls @ 27.25 mls/hr IV ONCE ONE Stop: 12/12/21 14:00 Last Infusion: 12/12/21 15:14 Dose: Infused Documented by: Magnesium Sulfate (Magnesium Sulfate Premix) 4 gm in 100 mls @ 50 mls/hr IV ONCE ONE Stop: 12/12/21 10:59 Last Infusion: 12/12/21 11:11 Dose: Infused Documented by: Vancomycin HCl 1,000 mg/ (Sodium Chloride) 250 mls @ 250 mls/hr IV Q24H [facility] Last Admin: 12/14/21 18:49 Dose: Not Given Documented by: Levetiracetam 500 mg/ Sodium (Chloride) 105 mls @ 420 mls/hr IV Q12H [facility] Levetiracetam 500 mg/ Sodium (Chloride) 105 mls @ 420 mls/hr IV Q12H [facility] Last Infusion: 12/15/21 21:53 Dose: Infused Documented by: Magnesium Sulfate (Magnesium Sulfate Premix) 4 gm in 100 mls @ 50 mls/hr IV ONCE ONE Stop: 12/14/21 11:10 Last Infusion: 12/14/21 18:50 Dose: Infused Documented by: Caspofungin 70 mg/ Sodium (Chloride) 250 mls @ 250 mls/hr IV ONCE ONE Stop: 12/15/21 22:06 Last Infusion: 12/16/21 00:52 Dose: Infused Documented by: Magnesium Sulfate (Magnesium Sulfate Premix) 2 gm in 50 mls @ 100 mls/hr IV ONCE ONE Stop: 12/16/21 17:29 Last Infusion: 12/16/21 17:56 Dose: Infused Documented by: Magnesium Sulfate (Magnesium Sulfate Premix) 2 gm in 50 mls @ 50 mls/hr IV ONCE ONE Stop: 12/17/21 08:59 Last Infusion: 12/17/21 10:01 Dose: Infused Documented by: Sodium Chloride (Sodium Chloride 0.9% (100 Ml)) Confirm Administered Dose 100 mls @ as directed .ROUTE .STK-MED ONE Stop: 12/17/21 11:15 Last Admin: 12/17/21 12:06 Dose: Not Given Documented by: Iohexol (Iohexol 350 Mg/Ml 100 Ml Btl) 0 ml IV ONCE ONE Stop: 12/09/21 13:06 Last Admin: 12/09/21 13:05 Dose: 95 ml Documented by: Ketamine HCl (Ketamine 50 Mg/Ml Inj 10 Ml) Confirm Administered Dose 500 mg .ROUTE .STK-MED ONE Stop: 12/11/21 10:08 Lorazepam (Lorazepam 2 Mg/Ml Inj 1 Ml) 1 mg IVP Q8H PRN PRN Reason: ANXIETY Last Admin: 12/13/21 07:50 Dose: 1 mg Documented by: Potassium Chloride (Potassium Chloride Er 20 Meq Tablet) 20 meq PO ONCE ONE Stop: 12/07/21 20:26 Last Admin: 12/07/21 20:30 Dose: 20 meq Documented by: Potassium Chloride (Potassium Chloride Er 20 Meq Tablet) 20 meq PO ONCE ONE Stop: 12/08/21 14:18 Last Admin: 12/09/21 09:53 Dose: Not Given Documented by: Potassium Chloride (Potassium Chloride Er 20 Meq Tablet) 20 meq PO ONCE ONE Stop: 12/08/21 16:38 Last Admin: 12/08/21 17:12 Dose: 20 meq Documented by: Potassium Chloride (Potassium Chloride Oral Liq 20 Meq/15 Ml Udc) 20 meq NG- TUBE ONCE ONE Stop: 12/16/21 08:49 Last Admin: 12/16/21 11:59 Dose: Not Given Documented by: Potassium Chloride (Potassium Chloride Oral Liq 20 Meq/15 Ml Udc) 20 meq NG- TUBE ONCE ONE Stop: 12/16/21 11:59 Last Admin: 12/16/21 12:25 Dose: 20 meq Documented by: Potassium Chloride (Potassium Chloride Oral Liq 20 Meq/15 Ml Udc) 40 meq PO ONCE ONE Stop: 12/17/21 08:01 Last Admin: 12/17/21 08:52 Dose: 40 meq Documented by: Propofol (Propofol 10 Mg/Ml Sdv 20 Ml) Confirm Administered Dose 200 mg .ROUTE .STK-MED ONE Stop: 12/11/21 11:30 Tacrolimus (Tacrolimus 0.5 Mg Capsule) 2 mg PO Q12H [facility] Last Admin: 12/15/21 20:30 Dose: 2 mg Documented by: Allergies No Known Allergies Allergy (Verified 12/04/21 11:01) Home Medications amlodipine 5 mg tablet 5 mg PO DAILY 08/30/21 [History Confirmed 12/04/21] apixaban 5 mg tablet (Eliquis) 5 mg PO BID 08/30/21 [History Confirmed 12/04/21] atorvastatin 40 mg tablet 40 mg PO DAILY 08/30/21 [History Confirmed 12/04/21] cholecalciferol (vitamin D3) 25 mcg (1,000 unit) capsule (Vitamin D3) 25 mcg PO DAILY 08/30/21 [History Confirmed 12/04/21] levothyroxine 50 mcg tablet 50 mcg PO DAILY 08/30/21 [History Confirmed 12/04/21] loperamide 2 mg capsule 2 mg PO Q4H PRN 08/30/21 [History Confirmed 12/04/21] losartan 100 mg tablet 100 mg PO DAILY 08/30/21 [History Confirmed 12/04/21] mirtazapine 15 mg tablet 15 mg PO DAILY 08/30/21 [History Confirmed 12/04/21] prednisone 5 mg tablet 5 mg PO DAILY 08/30/21 [History Confirmed 12/04/21] tacrolimus 1 mg capsule, immediate-release 2 mg PO Q12H 08/30/21 [History Confirmed 12/04/21] tamsulosin 0.4 mg capsule 0.4 mg PO DAILY 08/30/21 [History Confirmed 12/04/21] hydrocodone 5 mg-acetaminophen 325 mg tablet 1 tab PO Q6H PRN #14 tab 08/31/21 [Rx Confirmed 12/04/21] acetaminophen 325 mg tablet (Tylenol) 325 mg PO QID PRN 12/04/21 [History Confirmed 12/04/21] calcium carbonate 200 mg calcium (500 mg) chewable tablet (Tums) 200 mg PO BID PRN 12/04/21 [History Confirmed 12/04/21] levalbuterol tartrate 45 mcg/actuation aerosol inhaler 2 inh INHALATION Q6H 12/04/21 [History Confirmed 12/04/21] melatonin 10 mg tablet 10 mg PO BEDTIME 12/04/21 [History Confirmed 12/04/21] metoprolol tartrate 50 mg tablet 75 mg PO BID 12/04/21 [History Confirmed 12/04/21] multivitamin with minerals-iron fumarate 9 mg iron/15 mL oral liquid (Multi Vitamin) 15 ml PO DAILY 12/04/21 [History Confirmed 12/04/21] aspirin 81 mg capsule 81 mg PO DAILY 30 Days #30 cap 12/08/21 [Rx] cefdinir 300 mg capsule 300 mg PO BID 3 Days #6 cap 12/08/21 [Rx] pantoprazole 40 mg tablet,delayed release (Protonix) 40 mg PO BID 30 Days #60 tab 12/08/21 [Rx] sucralfate 1 gram tablet (Carafate) 1 g PO BID 28 Days #56 tab 12/08/21 [Rx] Discharge Plan Discharge Patient Disposition: Xfer Other Condition: Stable Prescriptions: New cefdinir 300 mg capsule 300 mg PO BID 3 Days Qty: 6 0RF aspirin 81 mg capsule 81 mg PO DAILY 30 Days Qty: 30 0RF Protonix 40 mg tablet,delayed release (DR/EC) 40 mg PO BID 30 Days Qty: 60 0RF Carafate 1 gram tablet 1 g PO BID 28 Days Qty: 56 0RF Continued loperamide 2 mg Capsule 2 mg PO Q4H PRN (Reason: Diarrhea) 0RF amlodipine 5 mg Tablet 5 mg PO DAILY 0RF tamsulosin 0.4 mg Capsule 0.4 mg PO DAILY 0RF mirtazapine 15 mg Tablet 15 mg PO DAILY 0RF cholecalciferol (vitamin D3) [Vitamin D3] 25 mcg (1,000 unit) Capsule 25 mcg PO DAILY 0RF atorvastatin 40 mg Tablet 40 mg PO DAILY 0RF prednisone 5 mg Tablet 5 mg PO DAILY 0RF levothyroxine 50 mcg Tablet 50 mcg PO DAILY 0RF losartan 100 mg Tablet 100 mg PO DAILY 0RF tacrolimus 1 mg Capsule 2 mg PO Q12H 0RF hydrocodone-acetaminophen 5-325 mg tablet 1 tab PO Q6H PRN (Reason: pain) Qty: 14 0RF Tylenol 325 mg Tablet 325 mg PO QID PRN (Reason: Pain) 0RF Tums 200 mg calcium (500 mg) Tablet,Chewable 200 mg PO BID PRN (Reason: Heartburn) 0RF metoprolol tartrate 50 mg tablet 75 mg PO BID 0RF levalbuterol tartrate 45 mcg/actuation Hfa Aerosol Inhaler 2 inh INHALATION Q6H 0RF Multi Vitamin 9 mg iron/15 mL Liquid 15 ml PO DAILY 0RF melatonin 10 mg Tablet 10 mg PO BEDTIME 0RF Held Eliquis 5 mg Tablet 5 mg PO BID 0RF Hold Instructions: Resume on 01/07/22. hold until you see primary care Discontinued famotidine 20 mg Tablet 20 mg PO BID 0RF Discharge Orders: Transfer Out of Facility (Order); Ordered 12/12/21 Ordered By: Marcus Williamson Referrals: Stephon King MD [Physician] - 12/16/21 8:45 am (egd and colonoscopy) Jenni Mccullough DO [Primary Care Provider] - 12/15/21 10:00 am Di Sepulveda MD [Staff Physician] - 2 weeks (anemia, thrombocytopenia LEFT MESSAGE WITH DR RIVERA TO PLEASE CALL APPOINTMENT TO PATIENT) Patient Instructions: Opioid Safety Activity Restrictions/Additional Instructions: - Needs to follow-up with transplant team at [place] within a month -Please hold Eliquis due to concerns for anemia and thrombocytopenia and bleeding -Follow-up for general surgery for EGD colonoscopy -For anemia, thrombocytopenia follow-up with [facility] -For your right parietal stroke, 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 -For anemia, recheck CBC in 48 hours -Follow-up with primary care - Transfer Attestations Time Spent in Transfer Care: greater than 30 min Quality Metrics Clinical Quality Measures [ No reported AMI, CVA or VTE this stay] Coding Level of Care Code Acute Client Specialist for [facility] Fwd Diagnoses Acute encephalopathy G93.40 Acute kidney injury superimposed on CKD N17.9; N18.9 UTI (urinary tract infection) N39.0 Thrombocytopenia D69.6 Candidal intertrigo B37.2 Decubital ulcer L89.90 Generalized weakness R53.1 Multiple falls R29.6 Metastatic renal cell carcinoma C64.9 Kidney 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
--- NOTE | 2021-12-17 14:51 | PC.NURSE ---
RN left VM for family at 1450 that pt belongings are still locked up in [facility].
== END 2021-12-17 12:30 | disposition short-term general hospital (02) | DRG 689 ==
LOC: ER 11:40 → MEDSURG 15:17
PROVIDERS: Family Medicine; Internal Medicine Nephrology; Admitting Provider Internal Medicine; Emergency Provider Emergency Medicine; PCP Family Medicine; Visit Provider Internal Medicine
DX: N39.0 Urinary tract infection, site not specified (principal); J18.9 Pneumonia, unspecified organism; G93.41 Metabolic encephalopathy; C64.9 Malignant neoplasm of unspecified kidney, except renal pelvis; C78.02 Secondary malignant neoplasm of left lung; C78.01 Secondary malignant neoplasm of right lung; C77.9 Secondary and unspecified malignant neoplasm of lymph node, unspecified; C79.51 Secondary malignant neoplasm of bone; N17.9 Acute kidney failure, unspecified; Z94.0 Kidney transplant status; D61.818 Other pancytopenia; F05 Delirium due to known physiological condition; D84.821 Immunodeficiency due to drugs; I48.91 Unspecified atrial fibrillation; I12.9 Hypertensive chronic kidney disease with stage 1 through stage 4 chronic kidney disease, or unspecified chronic kidney disease; N18.9 Chronic kidney disease, unspecified; F32.A Depression, unspecified; E78.5 Hyperlipidemia, unspecified; E03.9 Hypothyroidism, unspecified; E86.0 Dehydration; Z79.899 Other long term (current) drug therapy; Z79.52 Long term (current) use of systemic steroids; M84.421D Pathological fracture, right humerus, subsequent encounter for fracture with routine healing; N40.0 Benign prostatic hyperplasia without lower urinary tract symptoms; Z86.73 Personal history of transient ischemic attack (TIA), and cerebral infarction without residual deficits; Z79.891 Long term (current) use of opiate analgesic; Z79.82 Long term (current) use of aspirin; Z90.5 Acquired absence of kidney; E53.8 Deficiency of other specified B group vitamins; B96.1 Klebsiella pneumoniae [K. pneumoniae] as the cause of diseases classified elsewhere; J20.9 Acute bronchitis, unspecified; R31.29 Other microscopic hematuria; K52.9 Noninfective gastroenteritis and colitis, unspecified; R29.6 Repeated falls; D69.6 Thrombocytopenia, unspecified; L89.151 Pressure ulcer of sacral region, stage 1; L30.4 Erythema intertrigo
CPT/HCPCS: 36415; 36430; 36569; 51702; 62328; 70450; 70551; 71045; 71275; 74176; 74177; 78014; 80053; 80197; 80202; 80503; 81001; 82274; 82533; 82550; 82575; 82607; 82728; 82746; 83010; 83516; 83540; 83550; 83615; 83690; 83735; 83880; 84100; 84145; 84300; 84439; 84443; 84484; 84550; 85025; 85378; 85610; 85651; 86140; 86664; 86665; 86695; 86696; 86850; 86900; 86920; 87040; 87077; 87086; 87177; 87186; 87209; 87305; 87493; 87506; 87631; 87635; 93005; 93880; 94664; 96360; 96372; 97110; 97116; 97161; 97166; 97530; 97535; 99285; A9540; A9567; J0133; J0456; J0637; J0696; J1644; J1650; J1940; J1953; J2060; J2543; J2704; J3370; J3475; J3486; J3490; J7030; J7040; J7050; J7507; J7512; P9016; Q9967